=== PATIENT | female | born 1945 | race Caucasian/White ===

== ENCOUNTER → 2017-10-02 00:17 | Outpatient (CLI) | payer MEDICARE, BC, SELFPAY ==
--- NOTE | 2017-10-02 15:40 | DI.REPORT_ITS ---
SYMPTOM/DIAGNOSIS: RT KNEE PAIN M25.561 MRI RIGHT KNEE: Routine noncontrast examination was performed. There is a tear of the posterior horn of the medial meniscus. The lateral meniscus is intact. The anterior cruciate, posterior cruciate, medial and lateral collateral ligaments are intact. There is fluid seen around the medial collateral ligament and a Grade 1 sprain should be considered. There is thinning of the articular cartilage in the medial femoral tibial joint space. The articular cartilage is otherwise well maintained. There is a joint effusion. No significant popliteal cyst is present. The extensor mechanism, medial and lateral retinaculum and popliteus tendon are intact. No findings to suggest an occult fracture or avascular necrosis are appreciated. IMPRESSION: 1. Tear of the posterior horn of the medial meniscus. 2. Grade 1 sprain of the medial collateral ligament.
== END ==
PROVIDERS: PCP Nurse Practitioner; Visit Provider Nurse Practitioner
DX: M25.561 Pain in right knee (principal); S83.241A Other tear of medial meniscus, current injury, right knee, initial encounter; S83.411A Sprain of medial collateral ligament of right knee, initial encounter
CPT/HCPCS: 73721

== ENCOUNTER → 2017-10-06 09:30 | Outpatient (CLI) | payer MEDICARE, BC, SELFPAY | PROVIDERS: PCP Nurse Practitioner; Visit Provider Orthopaedic Surgery | DX: S83.241A Other tear of medial meniscus, current injury, right knee, initial encounter (principal); X50.9XXA Other and unspecified overexertion or strenuous movements or postures, initial encounter | CPT/HCPCS: 99214 ==

== ENCOUNTER 2017-11-24 11:06 | Outpatient (CLI) | payer MEDICARE, BC, SELFPAY ==
[2017-11-24 12:02] LABS: HCT 37.1 % (36.0-46.0); HGB 12.6 g/dL (12.0-15.5); Mean Corpuscular Hemoglobin 30.8 pg (27.0-33.0); Mean Corpuscular Volume 90.7 fL (80-95); Mean Platelet Volume 9.3 fL (8.0-11.0); Platelet Count 176 x1000/uL (130-400); RBC 4.09 m/cumm (4.00-5.20); RBC Distribution Width 13.5 % (11.7-14.6); White Blood Cell Count 4.61 k/cumm (4.4-10.8)
[2017-11-24 12:51] LABS: ALT 22 U/L (12-78); AST 18 U/L (15-37); Albumin 3.8 g/dL (3.4-5.0); Alkaline Phosphatase 56 U/L (46-116); Anion Gap 9.5 mmol/L (3-11); BUN 19 mg/dL (7-18); Bilirubin, Total 2.1 mg/dL (0.2-1.0); CO2 29.5 mmol/L (21.0-32.0); Calcium 8.3 mg/dL (8.5-10.1); Chloride 102 mmol/L (98-107); Cholesterol 150 mg/dL (50-200); Glucose 101 mg/dL (70-100); HDL Cholesterol 53 mg/dL (40-60); LDL CHOLESTEROL 86 mg/dL (<100); Potassium 3.5 mmol/L (3.5-5.1); Sodium 141 mmol/L (136-145); Total Protein 6.9 g/dL (6.4-8.2); Triglyceride 79 mg/dL (30-150)
== END 2017-11-24 11:26 ==
PROVIDERS: PCP Nurse Practitioner; Visit Provider Nurse Practitioner
DX: I82.412 Acute embolism and thrombosis of left femoral vein (principal); I10 Essential (primary) hypertension; E78.2 Mixed hyperlipidemia
CPT/HCPCS: 36415; 80053; 80061; 83721; 85027

== ENCOUNTER 2018-09-10 07:29 | Outpatient (CLI) | payer MEDICARE, BC, SELFPAY ==
[2018-09-10 08:26] LABS: HCT 38.2 % (36.0-46.0); HGB 12.6 g/dL (12.0-15.5); Mean Corpuscular Hemoglobin 29.8 pg (27.0-33.0); Mean Corpuscular Volume 90.3 fL (80-95); Mean Platelet Volume 9.3 fL (8.0-11.0); Platelet Count 207 x1000/uL (130-400); RBC 4.23 m/cumm (4.00-5.20); RBC Distribution Width 13.6 % (11.7-14.6); White Blood Cell Count 4.14 k/cumm (4.4-10.8)
[2018-09-10 09:02] LABS: ALT 27 U/L (12-78); AST 19 U/L (15-37); Albumin 3.7 g/dL (3.4-5.0); Alkaline Phosphatase 64 U/L (46-116); Anion Gap 9.2 mmol/L (3-11); BUN 20 mg/dL (7-18); Bilirubin, Total 1.1 mg/dL (0.2-1.0); CO2 26.8 mmol/L (21.0-32.0); CREATININE 0.98 mg/dL (0.55-1.02); Calcium 8.7 mg/dL (8.5-10.1); Calculated LDL 102 mg/dL; Chloride 105 mmol/L (98-107); Cholesterol 176 mg/dL (50-200); Estimated GFR 55.48 (mL/min/1.73m2); Glucose 116 mg/dL (70-100); HDL Cholesterol 51 mg/dL (40-60); Potassium 4.2 mmol/L (3.5-5.1); Sodium 141 mmol/L (136-145); Triglyceride 117 mg/dL (30-150)
== END 2018-09-10 07:49 ==
PROVIDERS: PCP Nurse Practitioner; Visit Provider Nurse Practitioner
DX: E78.2 Mixed hyperlipidemia (principal); I10 Essential (primary) hypertension
CPT/HCPCS: 36415; 80053; 80061; 83721; 85027

== ENCOUNTER 2018-09-29 01:03 | Outpatient (CLI) | payer MEDICARE, BC, SELFPAY ==
--- NOTE | 2018-09-29 13:00 | DI.MAMMO_ITS ---
SYMPTOMS/DIAGNOSIS: SCREENING, Z12.31 MAMMOGRAMS: Mammograms were interpreted according to the usual protocol including computer analysis with CAD system, tomosynthesis and C view imaging. The breast tissue is of moderate radiodensity. There is no dominant mass. There are no suspicious calcifications and there has been no significant interval change when compared with prior images. SUMMARY: No evidence of malignancy, category 1. Yearly screening mammography is recommended. Breast density category B. SA ASSESSMENT OF FINDINGS: Negative. Category 1. Patient will receive a letter notifying them of these results. BI-RADS category B. There are scattered areas of fibroglandular density.
== END 2018-09-29 01:23 ==
PROVIDERS: PCP Nurse Practitioner; Visit Provider Nurse Practitioner
DX: Z12.31 Encounter for screening mammogram for malignant neoplasm of breast (principal)
CPT/HCPCS: 77063; 77067

== ENCOUNTER 2018-10-07 07:28 | Outpatient (CLI) | payer MEDICARE, BC, SELFPAY ==
--- NOTE | 2018-10-07 08:23 | DI.US_ITS ---
SYMPTOMS/DIAGNOSIS: LT LEG SWELLING, M79.89, ? DVT DUPLEX VENOUS ULTRASOUND LEFT LOWER EXTREMITY: Duplex evaluation of the deep venous system was performed according to the usual protocol. The deep veins are freely compressible throughout to the level of the popliteal veins. There is normal doppler flow visible throughout and there is excellent flow augmentation with manual calf compression. CONCLUSION: No evidence of deep venous thrombosis.
== END 2018-10-07 07:48 ==
PROVIDERS: PCP Nurse Practitioner; Visit Provider Nurse Practitioner Family
DX: M79.89 Other specified soft tissue disorders (principal); R22.42 Localized swelling, mass and lump, left lower limb
CPT/HCPCS: 93971

== ENCOUNTER 2019-05-05 10:54 | Outpatient (CLI) | payer MEDICARE, BC, SELFPAY ==
[2019-05-05 13:23] LABS: ALT 28 U/L (14-59); AST 18 U/L (15-37); Albumin 3.7 g/dL (3.4-5.0); Alkaline Phosphatase 68 U/L (46-116); Anion Gap 6.9 mmol/L (3-11); BUN 16 mg/dL (7-18); Bilirubin, Total 1.2 mg/dL (0.2-1.0); CO2 30.1 mmol/L (21.0-32.0); CREATININE 0.82 mg/dL (0.55-1.02); Calcium 8.8 mg/dL (8.5-10.1); Calculated LDL 104 mg/dL (<100); Chloride 104 mmol/L (98-107); Cholesterol 185 mg/dL (<200); Glucose 102 mg/dL (74-106); HDL Cholesterol 58 mg/dL (40-60); Potassium 4.3 mmol/L (3.5-5.1); Sodium 141 mmol/L (136-145); Total Protein 6.9 g/dL (6.4-8.2); Triglyceride 117 mg/dL (<150)
== END 2019-05-05 11:14 ==
PROVIDERS: PCP Nurse Practitioner; Visit Provider Nurse Practitioner
DX: I10 Essential (primary) hypertension (principal); E78.2 Mixed hyperlipidemia
CPT/HCPCS: 36415; 80053; 80061

== ENCOUNTER 2019-10-03 01:13 | Outpatient (CLI) | payer MEDICARE, BC, SELFPAY ==
--- NOTE | 2019-10-03 06:00 | DI.MAMMO_ITS ---
EXAM: MG MAMMO SCREENING CLINICAL HISTORY: screening,Z12.39 TECHNIQUE: Mammograms were interpreted according to the usual protocol including computer analysis w [employer] CAD system, tomosynthesis and C-view imaging. COMPARISON: FINDINGS: The breasts are of moderate density with fairly symmetrical distribution of fibroglandular tissue. N o dominant mass or clumped microcalcification is identified in either breast. The current examinatio n is compared with prior studies including August 2018 and there has been no gross interval change in a ppearance in comparison with the previous studies. IMPRESSION: No specific evidence of malignancy at this time. Routine screening examinations are suggested at yea rly intervals due to the family history of breast carcinoma. BI-RADS Cat 1 - Negative Breast Density - Category B - Scattered areas of fibroglandular density
== END 2019-10-03 01:33 ==
PROVIDERS: PCP Nurse Practitioner; Visit Provider Nurse Practitioner
DX: Z12.31 Encounter for screening mammogram for malignant neoplasm of breast (principal); R92.2 Inconclusive mammogram; Z80.3 Family history of malignant neoplasm of breast
CPT/HCPCS: 77063; 77067

== ENCOUNTER 2020-06-01 09:17 | Outpatient (CLI) | payer MEDICARE, BC, SELFPAY ==
--- NOTE | 2020-06-01 08:30 | DI.RAD_ITS ---
EXAM: XR HAND RT COMPLETE CLINICAL HISTORY: right hand discomfort TECHNIQUE: COMPARISON: No exams were available for comparison FINDINGS: Three views were obtained. There are moderate degenerative changes of the IP joints, most marked at the DIP joints of the index and middle fingers and the IP joint of the thumb. There are degenerative changes at the greater multangular 1st metacarpal joint with prominent marginal osteophytes and tamym ed loss of the cartilaginous joint space. No other significant bony abnormality seen. IMPRESSION: RADIATION DOSE DELIVERED: Total DLP
== END 2020-06-01 09:18 | disposition home or self-care (01) ==
LOC: DIORS 09:18
PROVIDERS: PCP Nurse Practitioner; Referring Provider Nurse Practitioner; Visit Provider Student in an Organized Health Care Education/Training Program
DX: M19.041 Primary osteoarthritis, right hand (principal); M18.11 Unilateral primary osteoarthritis of first carpometacarpal joint, right hand; M65.331 Trigger finger, right middle finger; M65.341 Trigger finger, right ring finger; M65.351 Trigger finger, right little finger; M25.641 Stiffness of right hand, not elsewhere classified
CPT/HCPCS: 99213; 73130

== ENCOUNTER 2020-06-12 09:55 | Day surgery (SDC) | payer MEDICARE, BC, SELFPAY ==
[2020-06-12 10:34] VITALS: BP 136/72; PULSE 60; RESP 16; TEMP 36.4; O2SAT 96
--- NOTE | 2020-06-12 11:22 | W.PM.DSUDISC ---
Discharge Plan Disposition Patient Disposition: HOME Condition: Good Discharge Details Reason For Visit: RMF, RRF, RLF trigger release Attending Provider: Dk Salas Primary Care Provider: Echo Chamberlain Home Meds and New Rx's Prescriptions: New ibuprofen 600 mg tablet 600 mg PO TID PRN (Reason: pain) Qty: 30 RF: 0 acetaminophen 500 mg capsule 1,000 mg PO Q8H PRN PRNQty: 90 RF: 0 Continued warfarin 5 mg tablet See Rx Instructions mg PO DAILY Qty: 30 RF: 5 warfarin 2.5 mg tablet See Rx Instructions mg PO DAILY Qty: 90 RF: 3 amlodipine 5 mg tablet 5 mg PO DAILY Qty: 90 RF: 3 atorvastatin [Lipitor] 40 mg tablet 40 mg PO DAILY Qty: 90 RF: 3 fluticasone propionate 50 mcg/actuation spray,suspension 2 spray CANDELARIO DAILY Qty: 54.6 RF: 3 hydrochlorothiazide 25 mg tablet 25 mg PO DAILY Qty: 90 RF: 3 oxybutynin chloride 15 mg tablet extended release 24hr 15 mg PO DAILY Qty: 90 RF: 3 betamethasone valerate 0.1 % cream 1 applic Topical BID PRN (Reason: Hand eczema) Qty: 15 RF: 5 calcium citrate-vitamin D3 1 EACH tablet 1 ea PO DAILY RF: 0 omeprazole 20 mg tablet,delayed release (DR/EC) 20 mg PO DAILY Qty: 90 RF: 3 biotin 10,000 mcg Capsule 10,000 mcg PO DAILY RF: 0 B12 Active 1,000 mcg Tablet,Chewable 1,000 mcg PO DAILY RF: 0 Discharge Instructions Stand Alone Forms: Maritza Jackson Finger Release Referrals: Dk Salas MD [ [facility] STAFF PHYSICIAN] - Activity:: Activity as Tolerated Remove Dressings/Wound Care:: 48 hours Shower/Bathe:: 48 hours Diet:: As Tolerated Discharge Orders Discharge Orders: Discharge Order (Routine); Ordered 06/12/20 Ordered By: Hector Sheets DS: Diagnosis Discharge Diagnosis (1) Trigger finger: Status: Acute
[2020-06-12] MEDS: Sodium Bicarbonate 50 MEQ/50 ML VIAL (11:34)
--- NOTE | 2020-06-12 18:21 | ROE_ITS ---
Date of service: 06/12/20 Time of Service: 12:31 Operative Note Operative Note DATE OF PROCEDURE: 06/12/20 PRE-OP DIAGNOSIS: Right Middle, Ring, and Little Finger Trigger Fingers POST-OP DIAGNOSIS: same PROCEDURE: Trigger Finger Release - Right Middle, Ring, and Little Fingers SURGEON: Dk Salas ANESTHESIA TYPE: Local By Surgeon Refer to Anesthesia Record ESTIMATED BLOOD LOSS: 5 PATHOLOGY: none sent TOURNIQUET TIME: 0 COMPLICATIONS: None Patient was transported to: same day Patient's condition: stable Indications: I have seen Stacy in clinic for symptoms of a trigger finger of the little, ring, and middle fingers. The catching, clicking, locking, and pain limited function. The diagnosis of trigger finger was evident. The symptoms had not responded to conservative measures. I discussed trigger finger release with the patient. I reviewed the risks of the procedure to include, but not limited to, bleeding, infection, pain, stiffness, incomplete release, damage to nerves or vessels, continued catching, recurrence. Despite these risks, the patient elected to proceed. Findings: There was a tightened A1 ben which was released at each digit. The flexor tendons were inspected at each digit and there was noted to be some fraying of the tendon of ech finger. Stacy was able to move the finger without any catching, clicking, or locking. Procedure Description: Stacy was greeted in the preoperative holding area where the correct side was identified and marked. The consent was reviewed with the patient and signed. All questions were answered. She was taken back to the operating room. The patient was placed into the supine position on the operating room table with the left arm on an arm board. All bony prominences were well padded. No prophylactic antibiotics were administered since this was a clean, elective hand surgical case. The right arm was then prepped with Chloraprep and draped in a standard fashion with stockinette and extremity drape. A timeout to confirm correct identity, side and site, procedure, allergies, anesthesia, and medical concerns was performed. The surgical site was marked as a incision directly over the A1 ben of the involved digits. This was confirmed with palpation during finger flexion. This area, overlying the metacarpal head, was then anesthetized with 1% Lidocaine with epinephrine buffered with sodium bicarbonate for all 3 digits. The patient tolerated this well and once the anesthetic had setup, the procedure began. Starting with the little finger, incision was made through skin only, approximately 1cm. The deep tissues were dissected bluntly. Once the A1 ben and flexor tendons were identified the soft tissue including neurovascular structures were retracted medially and laterally. There were no crossing structures over the A1 ben. The proximal edge of the ben was identified and the ben was incised with tenotomy scissors. There was a release of the tendons once this was fully released. The tendons were then removed from the wound and inspected. There was notable fraying of the tendons and this was debrided. The tendons were then returned to the wound. Incision was then made overlying the ring finger A1 ben. The deep tissues were dissected bluntly. Soft tissues including neurovascular structures were retracted medially and laterally. There were no crossing structures over the A1 ben. The proximal edge of the ben was identified and the ben was incised with tenotomy scissors. There was a release of the tendons once this was fully released. The tendons were then removed from the wound and inspected. Excess synovium was resected. There was also some fraying of the flexor tendons, which was debrided. The hand was then inspected for any A0 ben or area of possible constriction. Lastly, an incision was then made overlying the middle finger A1 ben. The deep tissues were dissected bluntly. Soft tissues including neurovascular structures were retracted medially and laterally. There were no crossing structures over the A1 ben. The proximal edge of the ben was identified and the ben was incised with tenotomy scissors. There was a release of the tendons once this was fully released. The tendons were then removed from the wound and inspected. Excess synovium was resected. There was also some fraying of the flexor tendons, which was debrided. The tendons were then returned. Stacy was then asked to make a fist and repeat flexion and extension where there was no catching, clicking or triggering experienced. There was no re creation of the pre-operative symptoms. The wounds were then irrigated and the skin was closed with a 4-0 Nylon at each incision. This was then dressed with Xeroform,gauze and a Conform dressing. The patient tolerated the procedure well and was returned to the Same Day Surgery area in a stable condition suffering no known complication.
== END 2020-06-12 12:16 | disposition home or self-care (01) ==
PROVIDERS: PCP Nurse Practitioner; Visit Provider Student in an Organized Health Care Education/Training Program
PROC: (CPT 26055; principal; 2020-06-12 12:00)
DX: M65.351 Trigger finger, right little finger (principal); M65.331 Trigger finger, right middle finger
CPT/HCPCS: 26055 ×2

== ENCOUNTER → 2020-06-22 08:15 | Outpatient (BNVA) | payer MEDICARE, BC, SELFPAY | PROVIDERS: PCP Nurse Practitioner; Referring Provider Nurse Practitioner; Visit Provider Physician Assistant | DX: Z47.89 Encounter for other orthopedic aftercare (principal) ==

== ENCOUNTER → 2020-08-10 09:20 | Outpatient (BNVA) | payer MEDICARE, BC, SELFPAY | PROVIDERS: PCP Nurse Practitioner; Referring Provider Nurse Practitioner; Visit Provider Student in an Organized Health Care Education/Training Program | DX: Z47.89 Encounter for other orthopedic aftercare (principal); M65.30 Trigger finger, unspecified finger ==

== ENCOUNTER → 2020-09-20 09:42 | Outpatient (BNVA) | payer MEDICARE, BC, SELFPAY | PROVIDERS: PCP Nurse Practitioner; Referring Provider Nurse Practitioner | DX: Z47.89 Encounter for other orthopedic aftercare (principal); M79.644 Pain in right finger(s) | CPT/HCPCS: 99213 ==

== ENCOUNTER 2020-10-03 02:16 | Outpatient (CLI) | payer MEDICARE, BC, SELFPAY ==
--- NOTE | 2020-10-03 07:30 | DI.MAMMO_ITS ---
Exam(s) MAMMO SCREENING EXAM: MAMMO SCREENING CLINICAL HISTORY: screening,Z12.39. TECHNIQUE: Bilateral full field digital CC and MLO mammographic images were obtained with 3D tomosyn thesis and utilizing computer aided detection (CAD). COMPARISON: Prior mammograms dating back to 2010, the most recent being October 2019. Family history. Her mother and grandmother both diagnosed breast cancer. FINDINGS: There are no new significant radiograph findings in left breast. The right breast there is a small group microcalcifications located 4.5 cm in from the nipple on the CC view, more evident than previous. Spot magnification 2D view recommended. There is no significant architectural distortion nor skin thickening-retraction. IMPRESSION: No radiographic evidence of malignancy in the left breast. In the right breast there is a small microcalcification group which require spot Mag view (2D). BI-RADS Category 0 - Assessment Incomplete: Need additional imaging evaluation Breast Density - Category B - Scattered areas of fibroglandular density Breast density Category C or D implies that the patient has dense breast tissue. Dense breast tissue can make it harder to find cancer on a mammogram. Dense breast tissue is also associated with an incr eased risk of breast cancer. This information about the result of the mammogram report was provided to the patient to raise their awareness. Use this report when you speak with the patient about their risks for breast cancer, which includes their family history. At that time, you may recommend additional screening tests (Ultrasoun d or MRI) as these tests may add significant information. A negative radiographic report should not delay biopsy if a dominant or clinically suspicious mass is present. Up to ten percent of cancers are not identified on mammography. A negative report may reinforce clinical impression. Adenosis and dense breasts may obscure an underlying neoplasm. False positive reports average 6 to 10%. Patient will receive a letter notifying them of these results.
== END 2020-10-03 02:36 ==
PROVIDERS: PCP Nurse Practitioner; Visit Provider Nurse Practitioner
DX: Z12.31 Encounter for screening mammogram for malignant neoplasm of breast (principal); R92.8 Other abnormal and inconclusive findings on diagnostic imaging of breast
CPT/HCPCS: 77063; 77067

== ENCOUNTER 2020-10-24 02:36 | Outpatient (CLI) | payer MEDICARE, BC, SELFPAY ==
[2020-10-24 12:42] LABS: HCT 37.5 % (36.0-46.0); HGB 12.5 g/dL (11.2-15.7); MCHC 33.3 % (32.0-36.0); MCV 89.9 fL (80-95); MPV 9.7 fL (8.0-11.0); Platelet Count 205 10^3/uL (130-400); RBC 4.17 10^6/uL (3.93-5.22); RDW 12.9 % (11.7-14.6); RDW-SD 42.3 fL; WBC 5.15 10^3/uL (4.4-10.8)
[2020-10-24 12:59] LABS: ALT 30 U/L (14-59); AST 17 U/L (15-37); Albumin 3.7 g/dL (3.4-5.0); Alkaline Phosphatase 63 U/L (46-116); Anion Gap 9.8 mmol/L (3-11); BUN 21 mg/dL (7-18); Bilirubin, Total 0.9 mg/dL (0.2-1.0); CO2 27.2 mmol/L (21.0-32.0); CREATININE 0.8 mg/dL (0.55-1.02); Calcium 8.7 mg/dL (8.5-10.1); Calculated LDL 89 mg/dL (<100); Chloride 104 mmol/L (98-107); Cholesterol 162 mg/dL (<200); Glucose 101 mg/dL (74-106); HDL Cholesterol 44 mg/dL (40-60); Potassium 4.1 mmol/L (3.5-5.1); Sodium 141 mmol/L (136-145); Total Protein 6.9 g/dL (6.4-8.2); Triglyceride 147 mg/dL (<150)
== END 2020-10-24 02:37 | disposition home or self-care (01) ==
LOC: LOS 02:36
PROVIDERS: PCP Nurse Practitioner; Visit Provider Nurse Practitioner
DX: E11.9 Type 2 diabetes mellitus without complications (principal); E78.2 Mixed hyperlipidemia; I10 Essential (primary) hypertension; J45.909 Unspecified asthma, uncomplicated
CPT/HCPCS: 36415; 80053; 80061; 85027; 83036

== ENCOUNTER 2020-10-26 03:15 | Outpatient (CLI) | payer MEDICARE, BC, SELFPAY ==
--- NOTE | 2020-10-26 | DI.US_ITS ---
Exam(s) MG MAMMO SCREEN CALL BACK UNI US BREAST RT LIMITED EXAM: US BREAST RT LIMITED CLINICAL HISTORY: F/U abnl mammo, small mircrocalcification group TECHNIQUE: Ultrasound performed using standard protocol. COMPARISON: US US LOWER EXTREMITY VASCULAR LT from 10/07/2018 FINDINGS: Additional mammographic views of the right breast and right breast ultrasound are interpreted in conj unction. Recent mammogram showed suboptimally visualized microcalcifications of the medial retroareo lar portion of the breast. Magnification view shows microcalcifications to punctate likely benign. Breast ultrasound shows no evidence of an associated mass or cyst. IMPRESSION: No specific evidence of malignancy at this time. Follow-up right breast mammogram recommended in 6 m [facility]. BI-RADS Cat 3 - 6 month - Probably Benign Finding: Recommend follow-up imaging in 6 months Breast Density - Category B - Scattered areas of fibroglandular density DATA REPOSITORY:
== END 2020-10-26 03:35 ==
PROVIDERS: PCP Nurse Practitioner; Visit Provider Nurse Practitioner
DX: R92.8 Other abnormal and inconclusive findings on diagnostic imaging of breast (principal); R92.0 Mammographic microcalcification found on diagnostic imaging of breast
CPT/HCPCS: 76642; 77063; 77067

== ENCOUNTER 2021-04-29 00:27 | Outpatient (CLI) | payer MEDICARE, BC, SELFPAY ==
--- NOTE | 2021-04-29 07:30 | DI.MAMMO_ITS ---
Exam(s) MAMMO DIAGNOSTIC UNI EXAM: MAMMO DIAGNOSTIC UNI CLINICAL HISTORY: F/u Right abnormal MAMMO,R92.8. TECHNIQUE: Craniocaudal and mediolateral oblique Full Field Digital Mammography views of the breast with Computer Aided Diagnosis followed by Tomosynthesis. COMPARISON: September 2020 and exams back to 2012. FINDINGS: Mammography/Tomosynthesis: Masses/Architectural Distortion: None seen. Microcalcifictions: Stable punctate calcifications central breast. No suspicious pleomorphic-type ar e seen. Skin Thickening/Nipple Retraction: None. IMPRESSION: 1. No evidence of malignancy is noted. 2. Unless there is more urgent need, follow-up screening mammography is recommended, as per [employer] guidelines. BI-RADS Category 2 - Benign Findings Breast Density - Category B - Scattered areas of fibroglandular density A negative radiographic report should not delay biopsy if a dominant or clinically suspicious mass is present. Up to ten percent of cancers are not identified on mammography. A negative report may reinforce clinical impression. Adenosis and dense breasts may obscure an underlying neoplasm. False positive reports average 6 to 10%. Patient will receive a letter notifying them of these results.
== END 2021-04-29 00:47 ==
PROVIDERS: PCP Nurse Practitioner; Visit Provider Nurse Practitioner
DX: R92.8 Other abnormal and inconclusive findings on diagnostic imaging of breast (principal); N60.81 Other benign mammary dysplasias of right breast
CPT/HCPCS: 77061; 77065; G0279

== ENCOUNTER 2021-12-12 10:23 | Outpatient (CLI) | payer MEDICARE, BC, SELFPAY ==
[2021-12-12 10:26] LABS: HGB 11.5 g/dL (11.2-15.7); MCH 30.1 pg (27.0-33.0); MCHC 33.8 % (32.0-36.0); MCV 89 fL (80-95); Platelet Count 161 10^3/uL (130-400); RBC 3.82 10^6/uL (3.93-5.22); RDW 13.2 % (11.7-14.6); RDW-SD 42.9 fL; WBC 4.69 10^3/uL (4.4-10.8)
[2021-12-12 11:01] LABS: Prothrombin Time > 83.4 sec (9.3-11.0)
[2021-12-12 11:07] LABS: INR > 8.8 (0.9-1.1)
== END 2021-12-12 10:24 | disposition home or self-care (01) ==
LOC: LBO 10:26
PROVIDERS: PCP Nurse Practitioner; Visit Provider Nurse Practitioner
DX: R31.9 Hematuria, unspecified (principal); Z79.01 Long term (current) use of anticoagulants
CPT/HCPCS: 36415; 85027; 85610

== ENCOUNTER 2021-12-14 09:22 | Outpatient (CLI) | payer MEDICARE, BC, SELFPAY ==
[2021-12-14 09:46] LABS: Prothrombin Time 28.6 sec (9.3-11.0)
== END 2021-12-14 09:23 | disposition home or self-care (01) ==
PROVIDERS: PCP Nurse Practitioner; Visit Provider Student in an Organized Health Care Education/Training Program
DX: Z79.01 Long term (current) use of anticoagulants (principal); I82.412 Acute embolism and thrombosis of left femoral vein; R79.1 Abnormal coagulation profile
CPT/HCPCS: 36415; 85610

== ENCOUNTER 2021-12-14 09:33 | Outpatient (REF) | payer MEDICARE, BC, SELFPAY | END 2021-12-14 09:34 | disposition home or self-care (01) | LOC: LBN 09:33 | PROVIDERS: PCP Nurse Practitioner; Visit Provider Student in an Organized Health Care Education/Training Program | DX: R35.0 Frequency of micturition (principal) | CPT/HCPCS: 87086 ==

== ENCOUNTER 2021-12-24 11:57 | Outpatient (REF) | payer MEDICARE, BC, SELFPAY | END 2021-12-24 11:58 | disposition home or self-care (01) | LOC: LBN 11:57 | PROVIDERS: PCP Nurse Practitioner; Visit Provider Nurse Practitioner | DX: R35.0 Frequency of micturition (principal) | CPT/HCPCS: 87086 ==

== ENCOUNTER 2022-01-17 08:35 | Outpatient (CLI) | payer MEDICARE, BC, SELFPAY ==
--- NOTE | 2022-01-17 08:00 | DI.RAD_ITS ---
Exam(s) XR KNEE LT 3V AP,LAT,KENNY EXAM: XR KNEE LT 3V AP,LAT,KENNY CLINICAL HISTORY: L knee pain. TECHNIQUE: 2D digital imaging was performed. COMPARISON: No exams were available for comparison FINDINGS: 3 views No evidence of fracture but there is a significant joint effusion. Some narrowing of the medial comp artment noted-mild. Lateral compartment unremarkable. Patellofemoral compartment appears unremarkab le. Tibial plateau unremarkable. Bone density normal. IMPRESSION: No acute osseous findings but there is a joint effusion signifying internal derangement. Appropriate follow-up recommended. DATA REPOSITORY: RADIATION DOSE DELIVERED:
== END 2022-01-17 08:36 | disposition home or self-care (01) ==
LOC: DIORS 08:35
PROVIDERS: PCP Nurse Practitioner; Referring Provider Nurse Practitioner; Visit Provider Physician Assistant
DX: M17.12 Unilateral primary osteoarthritis, left knee (principal)
CPT/HCPCS: 73562; 99213

== ENCOUNTER → 2022-01-24 00:09 | Outpatient (CLI) | payer MEDICARE, BC, SELFPAY ==
--- NOTE | 2022-01-24 11:04 | DI.DEXA_ITS ---
Exam(s) XR DEXA BONE DENSITY W/WO NANCI EXAM: XR DEXA BONE DENSITY W/WO NANCI CLINICAL HISTORY: f/u osteoporosis M81.0 SCREENING TECHNIQUE: COMPARISON: No exams were available for comparison FINDINGS: DEXA scan was performed according to the usual protocol. Please see the accompanying data sheets. Left hip scanning shows T-score -0.8 with left femoral neck T-score -2.0. Lumbar spine scanning shows T-score -1.9. Left forearm scanning shows T-score -1.8 IMPRESSION: Measurements are consistent with osteopenia according to the WHO criteria. The lateral vertebral sca nogram shows no evidence of a vertebral compression fracture. RADIATION DOSE DELIVERED: Total DLP
== END ==
PROVIDERS: PCP Nurse Practitioner; Visit Provider Nurse Practitioner
DX: M85.89 Other specified disorders of bone density and structure, multiple sites (principal); Z13.820 Encounter for screening for osteoporosis
CPT/HCPCS: 77080

== ENCOUNTER 2022-01-27 03:20 | Outpatient (CLI) | payer MEDICARE, BC, SELFPAY ==
[2022-01-27 12:36] LABS: ALT 29 U/L (14-59); AST 21 U/L (15-37); Albumin 3.6 g/dL (3.4-5.0); Alkaline Phosphatase 65 U/L (46-116); Anion Gap 10.1 mmol/L (3-11); BUN 19 mg/dL (7-18); Bilirubin, Total 0.9 mg/dL (0.2-1.0); CO2 25.9 mmol/L (21.0-32.0); CREATININE 0.9 mg/dL (0.55-1.02); Calcium 8.9 mg/dL (8.5-10.1); Calculated LDL 65 mg/dL (<100); Chloride 103 mmol/L (98-107); Cholesterol 146 mg/dL (<200); Estimated GFR 65.84 (mL/min/1.73m2); Glucose 111 mg/dL (74-106); HDL Cholesterol 44 mg/dL (40-60); Potassium 4.1 mmol/L (3.5-5.1); Sodium 139 mmol/L (136-145); Triglyceride 185 mg/dL (<150)
[2022-01-27 12:39] LABS: Hemoglobin A1C 5.7 % (<5.7)
== END 2022-01-27 03:21 | disposition home or self-care (01) ==
LOC: LOS 03:20
PROVIDERS: PCP Nurse Practitioner; Visit Provider Nurse Practitioner
DX: E78.2 Mixed hyperlipidemia (principal); I10 Essential (primary) hypertension; R73.03 Prediabetes
CPT/HCPCS: 36415; 80053; 80061; 83036

== ENCOUNTER → 2022-10-03 09:20 | Outpatient (BNVA) | payer MEDICARE, BC, SELFPAY | PROVIDERS: PCP Nurse Practitioner; Referring Provider Nurse Practitioner; Visit Provider Student in an Organized Health Care Education/Training Program | DX: M65.332 Trigger finger, left middle finger (principal); M65.312 Trigger thumb, left thumb | CPT/HCPCS: 99213 ==

== ENCOUNTER → 2022-11-04 01:24 | Outpatient (CLI) | payer MEDICARE, BC, SELFPAY ==
--- NOTE | 2022-11-04 07:45 | DI.MAMMO_ITS ---
Exam(s) MAMMO SCREENING EXAM: MAMMO SCREENING CLINICAL HISTORY: screening,z12.39. TECHNIQUE: Bilateral full field digital CC and MLO mammographic images were obtained with 3D tomosyn thesis and utilizing computer aided detection (CAD). COMPARISON: Prior mammograms were reviewed. Significant family history here both mother and grandmother been diagnosed with breast cancer FINDINGS: There has been no significant change in the appearance and distribution of the fibroglandular tissue. Previously described small benign-appearing microcalcification group in the right breast remains unch anged. There are no new spiculated masses nor malignant appearing microcalcification groups. There is no significant architectural distortion nor skin thickening-retraction. IMPRESSION: No radiographic evidence of malignancy. Stable benign findings BI-RADS Category 2 - Benign Findings Breast Density - Category B - Scattered areas of fibroglandular density Breast density Category C or D implies that the patient has dense breast tissue. Dense breast tissue can make it harder to find cancer on a mammogram. Dense breast tissue is also associated with an incr eased risk of breast cancer. This information about the result of the mammogram report was provided to the patient to raise their awareness. Use this report when you speak with the patient about their risks for breast cancer, which includes their family history. At that time, you may recommend additional screening tests (Ultrasoun d or MRI) as these tests may add significant information. A negative radiographic report should not delay biopsy if a dominant or clinically suspicious mass is present. Up to ten percent of cancers are not identified on mammography. A negative report may reinforce clinical impression. Adenosis and dense breasts may obscure an underlying neoplasm. False positive reports average 6 to 10%. Patient will receive a letter notifying them of these results.
== END ==
PROVIDERS: PCP Nurse Practitioner; Visit Provider Nurse Practitioner
DX: Z12.31 Encounter for screening mammogram for malignant neoplasm of breast (principal)
CPT/HCPCS: 77063; 77067

== ENCOUNTER 2022-11-05 11:40 | Day surgery (SDC) | payer MEDICARE, BC, SELFPAY ==
--- NOTE | 2022-11-05 10:59 | W.PM.DSUDISC ---
Date of service: 11/05/22 Time of Service: 10:59 Discharge Plan Disposition Patient Disposition: Home Condition: Good Discharge Details Reason For Visit: L thumb, LMF trigger release Attending Provider: Dk Salas Primary Care Provider: Echo Chamberlain Home Meds and New Rx's Prescriptions: New acetaminophen 500 mg tablet 1,000 mg PO TID Qty: 90 0RF Continued PreserVision AREDS-2 250-90-40-1 mg capsule 1 tab PO BID melatonin 10 mg capsule 10 mg PO HS PRN amlodipine 5 mg tablet 5 mg PO DAILY Qty: 90 3RF atorvastatin [Lipitor] 40 mg tablet 40 mg PO DAILY Qty: 90 3RF betamethasone valerate 0.1 % cream 1 applic Topical BID PRN (Reason: Hand eczema) Qty: 15 5RF Rx Instructions: small amt to affected area 2x/day up to 2 weeks, 1 week off repeat cycle as needed. hydrochlorothiazide 25 mg tablet 25 mg PO DAILY Qty: 90 3RF omeprazole 20 mg tablet,delayed release (DR/EC) 20 mg PO DAILY Qty: 90 3RF oxybutynin chloride 15 mg tablet extended release 24hr 15 mg PO DAILY Qty: 90 3RF calcium citrate-vitamin D3 1 EACH tablet 1 ea PO DAILY Saline Nasal 0.65 % aerosol,spray 2 spray intranasal QID PRN (Reason: dry nasal passages) Qty: 88 3RF Xarelto 20 mg tablet 20 mg PO DAILY Qty: 90 3RF Rx Instructions: must administer with evening meal mecobalamin (vitamin B12) [B12 Active] 1,000 mcg Tablet,Chewable 1,000 mcg PO DAILY Discharge Instructions Stand Alone Forms: Maritza Jackson Finger Release Referrals: Dk Salas MD [ [facility] STAFF PHYSICIAN] - Activity:: Activity as Tolerated Remove Dressings/Wound Care:: 48 hours Shower/Bathe:: 48 hours Diet:: As Tolerated Discharge Orders Discharge Orders: Discharge Order (Routine); Ordered 11/05/22 Ordered By: Hector Sheets DS: Diagnosis Discharge Diagnosis (1) Trigger thumb, left thumb: Status: Acute (2) Trigger finger, left middle finger: Status: Acute
[2022-11-05 11:52] VITALS: BP 126/57; PULSE 64; RESP 16; TEMP 36.4; O2SAT 98
[2022-11-05] MEDS: Sodium Bicarbonate 50 MEQ/50 ML VIAL (12:56)
[2022-11-05] MEDS: Lidocaine 1% Pres-Free W/EPI 1/200,000 30 ML VIAL (12:56)
--- NOTE | 2022-11-05 13:16 | ROE_ITS ---
Date of service: 11/05/22 Time of Service: 13:16 Operative Note Operative Note DATE OF PROCEDURE: 11/05/22 PRE-OP DIAGNOSIS: Left Middle Finger and Left Thumb Trigger Fingers POST-OP DIAGNOSIS: same PROCEDURE: Trigger Finger Release - Left Middle Finger and Left Thumb SURGEON: Dk Salas Refer to Anesthesia Record PATHOLOGY: none sent COMPLICATIONS: None Patient was transported to: same day Patient's condition: stable Indications: I have seen Stacy in clinic for symptoms of a trigger finger. The catching, clicking, locking, and pain limited function. The diagnosis of trigger finger was evident. The symptoms had not responded to conservative measures. I discussed trigger finger release with the patient. I reviewed the risks of the procedure to include, but not limited to, bleeding, infection, pain, stiffness, incomplete release, damage to nerves or vessels, continued catching, recurrence. Despite these risks, the patient elected to proceed. Findings: There was a tightened A1 ben which was released. The flexor tendons were inspected and the patient was able to move the finger without any catching, clicking, or locking. Procedure Description: Stacy was greeted in the preoperative holding area where the correct side was identified and marked. The consent was reviewed with the patient and signed. All questions were answered. She was taken back to the operating room. The patient was placed into the supine position on the operating room table with the left arm on an arm board. All bony prominences were well padded. No prophylactic antibiotics were administered since this was a clean, elective hand surgical case. The left arm was then prepped with Chloraprep and draped in a standard fashion with stockinette and extremity drape. A timeout to confirm correct identity, side and site, procedure, allergies, anesthesia, and medical concerns was performed. The surgical site was marked as a longitudinal incision directly over the A1 ben of the thumb and middle finger. This was confirmed with palpation during finger flexion. This area, overlying the metacarpal head, was then anesthetized with 1% Lidocaine with Epinephrine and buffered with sodium bicarbonate for both digits. The patient tolerated this well and once the anesthetic had set up, the procedure began. Starting with the thumb, a longitudinal incision was made through skin only, approximately 1cm. The deep tissues were dissected bluntly. Once the A1 ben and flexor tendons were identified the soft tissue including neurovascular structures were retracted medially and laterally. There were no crossing structures over the A1 ben. The proximal edge of the ben was identified and the ben was incised with tenotomy scissors. There was a release of the tendons once this was fully released. The tendon was then removed from the wound and inspected. The tendons were then returned and the patient was asked to move the finger into deep flexion and back to extension. There was no recreation of the pre-operative symptoms. The hand was then once more inspected for any A0 ben or area of possible constriction. The wound was then irrigated and the skin was closed with a 4-0 Nylon. Moving onto the middle finger, a longitudinal incision was made through skin only, approximately 1cm. The deep tissues were dissected bluntly. Once the A1 ben and flexor tendons were identified the soft tissue including neurovascular structures were retracted medially and laterally. There were no crossing structures over the A1 ben. The proximal edge of the ben was identified and the ben was incised with tenotomy scissors. There was a release of the tendons once this was fully released. The tendons were then removed from the wound and inspected. There was some minor fraying. The tendons were then returned and the patient was asked to move the finger into deep flexion and back to extension. There was no recreation of the pre- operative symptoms. The hand was then once more inspected for any A0 ben or area of possible constriction. The wound was then irrigated and the skin was closed with a 4-0 Nylon. This was dressed with gauze and a Conform dressing. The patient tolerated the procedure well and was returned to the Same Day Surgery area in a stable condition suffering no known complication.
[2022-11-05 13:20] VITALS: BP 157/71; PULSE 63; RESP 16; TEMP 36.8; O2SAT 95
== END 2022-11-05 13:40 | disposition home or self-care (01) ==
PROVIDERS: PCP Nurse Practitioner; Visit Provider Student in an Organized Health Care Education/Training Program
PROC: (CPT 26055; principal; 2022-11-05 11:45)
DX: M65.312 Trigger thumb, left thumb (principal); M65.332 Trigger finger, left middle finger
CPT/HCPCS: 26055 ×2

== ENCOUNTER → 2022-11-14 09:28 | Outpatient (BNVA) | payer MEDICARE, BC, SELFPAY | PROVIDERS: PCP Nurse Practitioner; Referring Provider Nurse Practitioner | DX: Z47.89 Encounter for other orthopedic aftercare (principal); M25.642 Stiffness of left hand, not elsewhere classified ==

== ENCOUNTER → 2023-01-19 08:50 | Outpatient (BNVA) | payer MEDICARE, BC, SELFPAY | PROVIDERS: PCP Nurse Practitioner; Referring Provider Nurse Practitioner; Visit Provider Nurse Practitioner Gerontology | DX: N39.41 Urge incontinence (principal) | CPT/HCPCS: 51798; 81003; 99215 ==

== ENCOUNTER → 2023-04-22 12:17 | Outpatient (BNVA) | payer MEDICARE, BC, SELFPAY | PROVIDERS: PCP Nurse Practitioner; Referring Provider Nurse Practitioner; Visit Provider Nurse Practitioner Gerontology | DX: N39.41 Urge incontinence (principal) | CPT/HCPCS: 99213 ==

== ENCOUNTER 2023-08-11 20:05 | Outpatient (CLI) | payer MEDICARE, BC, SELFPAY ==
[2023-08-11 08:51] LABS: Abs Immature Grans 0.01 10^3/uL (0.0-0.06); Absolute Basophil Count 0.04 10^3/uL (0.0-0.2); Absolute Eosinophil Count 0.25 10^3/uL (0.0-0.7); Absolute Lymphocyte Count 1.58 10^3/uL (1.2-3.4); Absolute Monocyte Count 0.36 10^3/uL (0.1-0.8); Basophils % 0.7 %; Eosinophils % 4.4 %; HCT 37.5 % (36.0-46.0); Immature Grans % 0.2 %; Lymphocytes % 27.5 %; MCH 31.3 pg (27.0-33.0); MCHC 34.7 % (32.0-36.0); MCV 90 fL (80-95); MPV 8.6 fL (8.0-11.0); Monocytes % 6.3 %; Neutrophils % 60.9 %; Platelet Count 180 10^3/uL (130-400); RBC 4.15 10^6/uL (3.93-5.22); RDW 12.9 % (11.7-14.6); RDW-SD 42.8 fL; WBC 5.74 10^3/uL (4.4-10.8)
[2023-08-11 09:59] LABS: ALT 31 U/L (14-59); AST 19 U/L (15-37); Albumin 3.6 g/dL (3.4-5.0); Alkaline Phosphatase 74 U/L (46-116); Anion Gap 9.1 mmol/L (3-11); BUN 14 mg/dL (7-18); Bilirubin, Total 1.2 mg/dL (0.2-1.0); CO2 29.9 mmol/L (21.0-32.0); CREATININE 0.8 mg/dL (0.55-1.02); Calcium 8.7 mg/dL (8.5-10.1); Chloride 103 mmol/L (98-107); Glucose 121 mg/dL (74-106); Potassium 3.5 mmol/L (3.5-5.1); Sodium 142 mmol/L (136-145); Total Protein 7.3 g/dL (6.4-8.2)
[2023-08-11 10:04] LABS: Hemoglobin A1C 6.2 % (<5.7)
[2023-08-11 11:47] LABS: Calculated LDL 79 mg/dL (<100); Cholesterol 155 mg/dL (<200); HDL Cholesterol 57 mg/dL (40-60); Triglyceride 96 mg/dL (<150)
== END 2023-08-11 20:06 | disposition home or self-care (01) ==
LOC: LBO 08-19 20:06
PROVIDERS: PCP Nurse Practitioner; Visit Provider Nurse Practitioner
DX: Z79.01 Long term (current) use of anticoagulants (principal); E78.2 Mixed hyperlipidemia; I10 Essential (primary) hypertension; E11.9 Type 2 diabetes mellitus without complications
CPT/HCPCS: 36415; 80053; 80061; 83036; 85025

== ENCOUNTER → 2023-08-17 13:33 | Outpatient (BNVA) | payer MEDICARE, BC, SELFPAY | PROVIDERS: PCP Nurse Practitioner; Referring Provider Nurse Practitioner; Visit Provider Nurse Practitioner Gerontology | DX: N39.41 Urge incontinence (principal) | CPT/HCPCS: 99213 ==

== ENCOUNTER 2023-11-03 18:02 | Outpatient (CLI) | payer MEDICARE, BC, SELFPAY ==
--- NOTE | 2023-11-03 18:00 | RT.EKG_ITS ---
APPROVED REPORT Exam: Resting ECG Reason for Exam: bilateral L.E Edema Patient Location: O HR:64 bpm ECG Measurements Heart Rate 64 AXIS VT 125 P 33 QRSd 96 QRS 7 QT 534 T 13 QTc 551 Conclusion Sinus rhythm...normal P axis, V-rate 50- 99 Prolonged QT interval...QTc >500mS Baseline wander in lead(s) II,III,aVL,aVF
== END 2023-11-03 18:03 | disposition home or self-care (01) ==
LOC: DI.KIM 18:03
PROVIDERS: PCP Nurse Practitioner; Visit Provider Nurse Practitioner
DX: R60.0 Localized edema (principal)
CPT/HCPCS: 93010

== ENCOUNTER 2023-11-10 18:41 | Emergency (ER) | payer MEDICARE, BC, SELFPAY ==
[2023-11-10 18:55] VITALS: BP 196/99; PULSE 80; RESP 15; TEMP 36.3; O2SAT 96
[2023-11-10 18:59] VITALS: BP 196/99; PULSE 80; RESP 15; TEMP 36.3; O2SAT 96
--- NOTE | 2023-11-10 19:15 | RT.EKG_ITS ---
APPROVED REPORT Exam: Resting ECG Reason for Exam: high bp Patient Location: E HR:67 bpm ECG Measurements Heart Rate 67 AXIS ID 154 P 53 QRSd 91 QRS 15 QT 479 T 34 QTc 505 Conclusion Sinus rhythm, rate 67 PACs Prolongued QTc at 505ms No STEMI
[2023-11-10 20:33] LABS: Abs Immature Grans 0.02 10^3/uL (0.0-0.06); Absolute Basophil Count 0.04 10^3/uL (0.0-0.2); Absolute Eosinophil Count 0.17 10^3/uL (0.0-0.7); Absolute Lymphocyte Count 1.95 10^3/uL (1.2-3.4); Absolute Monocyte Count 0.43 10^3/uL (0.1-0.8); Absolute Neutrophil Count 2.48 10^3/uL (1.2-6.7); Basophils % 0.8 %; Eosinophils % 3.3 %; HCT 36.6 % (36.0-46.0); HGB 12.4 g/dL (11.2-15.7); Immature Grans % 0.4 %; Lymphocytes % 38.3 %; MCHC 33.9 % (32.0-36.0); MCV 92 fL (80-95); Monocytes % 8.4 %; Neutrophils % 48.8 %; Platelet Count 151 10^3/uL (130-400); RDW 12.8 % (11.7-14.6); RDW-SD 42.1 fL; WBC 5.09 10^3/uL (4.4-10.8)
[2023-11-10 20:44] LABS: INR 3.5 (0.9-1.1); Prothrombin Time 31.6 sec (9.1-11.1)
[2023-11-10 20:52] LABS: Anion Gap 8.6 mmol/L (3-11); BUN 13 mg/dL (7-18); CO2 28.4 mmol/L (21.0-32.0); CREATININE 0.8 mg/dL (0.55-1.02); Chloride 104 mmol/L (98-107); Glucose 98 mg/dL (74-106); Potassium 3.3 mmol/L (3.5-5.1); Sodium 141 mmol/L (136-145)
[2023-11-10] MEDS: Potassium Chloride 20 MEQ TABCR 40 MEQ PO (21:46)
[2023-11-10 21:48] VITALS: BP 175/89; PULSE 80; RESP 15; TEMP 36.3; O2SAT 96
--- NOTE | 2023-11-10 22:40 | ED.GENADUL_ITS ---
Discharge Plan Disposition Patient Disposition: Home Condition: Stable Discharge Details Clinical Impression: Elevated blood pressure reading, Elevated INR, Hypokalemia Primary Care Provider: Echo Chamberlain ED Provider: Liliam Loo Home Meds and New Rx's Prescriptions: Continued warfarin 5 mg tablet 5 mg PO DAILY Qty: 90 3RF Protocol: Dose Management Condition: Thursday Dose/Route: 2.5 mg Instruction: 1 x 2.5 mg tablet Condition: Thursday Dose/Route: 5 mg Instruction: 1 x 5 mg tablet Condition: Thursday Dose/Route: 2.5 mg Instruction: 1 x 2.5 mg tablet Condition: Thursday Dose/Route: 2.5 mg Instruction: 1 x 2.5 mg tablet Condition: Dose/Route: 5 mg Instruction: 1 x 5 mg tablet Condition: Thursday Dose/Route: 2.5 mg Instruction: 1 x 2.5 mg tablet Condition: Thursday Dose/Route: 2.5 mg Instruction: 1 x 2.5 mg tablet Protocol Text: Adjustment Start Date: Thursday10/20/23 INR Value: 2.5 INR Date: 10/20/23 Recheck Date: 11/17/23 Rx Instructions: Start today please. warfarin 2.5 mg tablet 2.5 mg PO DAILY Protocol: Dose Management Condition: Thursday Dose/Route: 2.5 mg Instruction: 1 x 2.5 mg tablet Condition: Thursday Dose/Route: 5 mg Instruction: 1 x 5 mg tablet Condition: Thursday Dose/Route: 2.5 mg Instruction: 1 x 2.5 mg tablet Condition: Thursday Dose/Route: 2.5 mg Instruction: 1 x 2.5 mg tablet Condition: Dose/Route: 5 mg Instruction: 1 x 5 mg tablet Condition: Thursday Dose/Route: 2.5 mg Instruction: 1 x 2.5 mg tablet Condition: Thursday Dose/Route: 2.5 mg Instruction: 1 x 2.5 mg tablet Protocol Text: Adjustment Start Date: Thursday10/20/23 INR Value: 2.5 INR Date: 10/20/23 Recheck Date: 11/17/23 Rx Instructions: as directed atorvastatin [Lipitor] 40 mg tablet 40 mg PO DAILY Qty: 90 3RF hydrochlorothiazide 25 mg tablet 25 mg PO DAILY Qty: 90 3RF omeprazole 20 mg tablet,delayed release (DR/EC) 20 mg PO DAILY Qty: 90 3RF acetaminophen 500 mg tablet 1,000 mg PO TID PRN PreserVision AREDS-2 250-90-40-1 mg capsule 1 tab PO BID melatonin 10 mg capsule 10 mg PO HS PRN betamethasone valerate 0.1 % cream 1 applic Topical BID PRN (Reason: Hand eczema) Qty: 15 5RF Rx Instructions: small amt to affected area 2x/day up to 2 weeks, 1 week off repeat cycle as needed. Centrum Complete 18-400 mg-mcg tablet 1 tab PO DAILY losartan 100 mg tablet 100 mg PO DAILY Qty: 30 3RF furosemide 20 mg tablet See Rx Instructions PO DAILY PRN (Reason: edema) Qty: 14 0RF Rx Instructions: orally daily PRN; 1/2 to 1 tab daily PRN calcium citrate-vitamin D3 1 EACH tablet 1 ea PO DAILY mecobalamin (vitamin B12) [B12 Active] 1,000 mcg Tablet,Chewable 1,000 mcg PO DAILY Discharge Instructions Instructions: High blood pressure in adults Additional Instructions: follow-up with primary care physician tomorrow to review your blood pressure bp at dc 175/89 skip your coumadin tonight, inr 3.5 return with headache, chest pain, or should any new concerns arise Referrals: Echo Chamberlain NP [Primary Care Provider] - HPI General Date/Time Provider Initiated Documentation: 11/10/23 19:10 . HPI Narrative: This 78-year-old female presents with report of elevated blood pressure today, 200/100 at home. States she just had a switch from amlodipine to losartan approximately a week ago. Denies any associated symptoms, specifically no headache, chest pain, or shortness of breath. States but after she checked her blood pressure she maybe was lightheaded, however she is currently asymptomatic. Related Data Home Medications ?Medication ?Instructions ?Recorded ?Confirmed calcium citrate 315 mg-vitamin D3 1 ea PO DAILY 12/11/16 11/10/23 5 mcg (200 unit) tablet mecobalamin (vitamin B12) 1,000 1,000 mcg PO DAILY 06/12/20 11/10/23 mcg chewable tablet (B12 Active) vit C 250 mg-vit E 90 mg-zinc 40 1 tab PO BID 08/10/20 11/10/23 mg-copper 1 [id number] capsule (PreserVision AREDS-2) melatonin 10 mg capsule 10 mg PO HS PRN 04/09/22 11/10/23 betamethasone valerate 0.1 % 1 applic topical BID PRN Hand 10/07/22 11/10/23 topical cream eczema #15 grams warfarin 5 mg tablet 5 mg PO DAILY Keep INR between 2-3 11/11/22 11/10/23 #90 tabs warfarin 2.5 mg tablet 2.5 mg PO DAILY 12/03/22 11/10/23 multivitamin-ferrous 1 tab PO DAILY 04/07/23 11/10/23 fumarate-folic acid 18 mg-400 mcg tablet (Centrum Complete) acetaminophen 500 mg tablet 1,000 mg PO TID PRN 09/01/23 11/10/23 atorvastatin 40 mg tablet (Lipitor) 40 mg PO DAILY #90 tab-caps 09/08/23 11/10/23 hydrochlorothiazide 25 mg tablet 25 mg PO DAILY #90 tab-caps 09/08/23 11/10/23 omeprazole 20 mg tablet,delayed 20 mg PO DAILY #90 tab-caps 09/08/23 11/10/23 release furosemide 20 mg tablet See Rx Instructions PO DAILY PRN 11/03/23 11/10/23 edema #14 tabs losartan 100 mg tablet 100 mg PO DAILY #30 tabs 11/03/23 11/10/23 Previous Rx's ?Medication ?Instructions ?Recorded betamethasone valerate 0.1 % 1 applic topical BID PRN Hand 10/07/22 topical cream eczema #15 grams warfarin 5 mg tablet 5 mg PO DAILY Keep INR between 2-3 11/11/22 #90 tabs atorvastatin 40 mg tablet (Lipitor) 40 mg PO DAILY #90 tab-caps 09/08/23 hydrochlorothiazide 25 mg tablet 25 mg PO DAILY #90 tab-caps 09/08/23 omeprazole 20 mg tablet,delayed 20 mg PO DAILY #90 tab-caps 09/08/23 release furosemide 20 mg tablet See Rx Instructions PO DAILY PRN 11/03/23 edema #14 tabs losartan 100 mg tablet 100 mg PO DAILY #30 tabs 11/03/23 Allergies Allergy/AdvReac Type Severity Reaction Status Date / Time No Known Allergies Allergy Verified 11/10/23 19:01 General Stated Complaint: Headache ESTEFANY: 3 Exam Narrative Exam Narrative: Alert and oriented, no acute distress, pupils equal round reactive to light and accommodation, cardiac rate rhythm regular, no respiratory distress ambulatory with steady gait Course Vital Signs Vital signs: Vital Signs Temperature 36.3 C L 11/10/23 18:55 Pulse 80 11/10/23 18:55 Respiratory Rate 15 11/10/23 18:55 Blood Pressure 196/99 H 11/10/23 18:55 Pulse Oximetry 96 11/10/23 18:55 Temperature 36.3 C L 11/10/23 21:48 Pulse 80 11/10/23 21:48 Respiratory Rate 15 11/10/23 21:48 Blood Pressure 175/89 H 11/10/23 21:48 Blood Pressure Position Sitting 11/10/23 18:59 Pulse Oximetry 96 11/10/23 21:48 Oxygen Delivery Method Room Air 11/10/23 18:59 Oxygen Flow Rate 0 11/10/23 18:55 Pain Level 0 11/10/23 21:48 Lab/Test Results Lab/Test Results: Laboratory Tests Range/Units 11/10/23 20:20 WBC (4.4-10.8) 10^3/uL 5.09 RBC (3.93-5.22) 10^6/uL 4.00 Hgb (11.2-15.7) g/dL 12.4 Hct (36.0-46.0) % 36.6 MCV (80-95) fL 92 MCH (27.0-33.0) pg 31.0 MCHC (32.0-36.0) % 33.9 RDW (11.7-14.6) % 12.8 Plt Count (130-400) 10^3/uL 151 MPV (8.0-11.0) fL 9.0 Immature Gran % % 0.4 Neutrophils % % 48.8 Lymphocytes % % 38.3 Monocytes % % 8.4 Eosinophils % % 3.3 Basophils % % 0.8 Nucleated RBC % (0.0-0.3) % 0.0 Absolute Neutrophils (1.2-6.7) 10^3/uL 2.48 Absolute Lymphocytes (1.2-3.4) 10^3/uL 1.95 Absolute Monocytes (0.1-0.8) 10^3/uL 0.43 Absolute Eosinophils (0.0-0.7) 10^3/uL 0.17 Absolute Basophils (0.0-0.2) 10^3/uL 0.04 PT (9.1-11.1) sec 31.6 H INR (0.9-1.1) 3.5 H Sodium (136-145) mmol/L 141 Potassium (3.5-5.1) mmol/L 3.3 L Chloride (98-107) mmol/L 104 Carbon Dioxide (21.0-32.0) mmol/L 28.4 Anion Gap (3-11) mmol/L 8.6 BUN (7-18) mg/dL 13 Creatinine (0.55-1.02) mg/dL 0.8 Est GFR (CKD-EPI 2020) (mL/min/1.73m2) 74.90 Glucose (74-106) mg/dL 98 Calcium (8.5-10.1) mg/dL 8.0 L Medical Decision Making 78-year-old female presenting in no acute distress with elevated blood pressure, on repeat assessment blood pressure 175/89. Patient did take her losartan this morning and has had 50 mg of hydrochlorothiazide this evening. She took an additional dose in the evening in the emergency department for a total of 50 mg of hydrochlorothiazide. She denies any chest pain or shortness of breath. She otherwise feels fine and does not actually have an appointment with her primary care tomorrow which is great. Her INR is elevated at 3.5 she is encouraged to skip her 5 mg dose of Coumadin this evening and resume at the discretion of her provider. Discharged home in stable condition with stable vitals, CBC and chemistry otherwise unremarkable. Potassium 3.3, given 40 mill equivalents potassium in the emergency department. Return precautions reviewed and patient expressed understanding Quality:SDOH Health Related Social Needs: No Data to Display PFSH All Active Problems (Updated 11/10/23 @ 21:39 by ESTELITA Chi) Hypokalemia (Acute) Elevated INR (Acute) Elevated blood pressure reading (Acute) Mixed urinary incontinence due to female genital prolapse (Acute) Urge incontinence (Acute) Trigger thumb, left thumb (Acute) S/P Release: 11/05/2022 Trigger finger, left middle finger (Acute) S/P Release: 11/05/2022 COVID (Acute 05/20/22) AMD (age related macular degeneration) (Acute ~01/2022) 02/17/22 [facility] ([place]) Primary osteoarthritis of left knee (Acute) Trigger finger (Acute) RMF, RRF, RLF S/P Release of all three fingers: 06/12/2020 Decreased range of motion of finger of right hand (Acute) Prediabetes (Acute) Bruise (Acute) Myalgia (Acute) Sore throat (Acute) Sinusitis (Acute) PND (post-nasal drip) (Acute) Right tennis elbow (Acute) 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 Changing to Xarelto ~ 12/16/21. 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) Left Pain of lower extremity (Acute 12/09/16) Mixed hyperlipidemia (Acute 12/09/16) Low serum calcium (Acute 05/26/16) 05/26/16 7.9 Insomnia (Acute 12/09/16) Gastroesophageal reflux disease (Acute 12/09/16) Fibrosclerosis of breast (Acute 12/09/16) Essential hypertension (Acute 12/09/16) Eczema (Acute 12/09/16) Diverticulosis of colon (Acute 12/09/08) [place], [place] Diverticulosis found in entire colon Barretts esophagus (Acute 12/08/09) EGD Medical History (Updated 11/10/23 @ 21:39 by ESTELITA Chi) History of tobacco abuse (01/08/17) History of DVT (deep vein thrombosis) (01/14/17) Recurrent 03/2015, 12/2015 femoral vein of LLE 11/11/22 off xarelto x 2w, warfarin restarted No coagulopathy eval started 2' move up to [place] from [place].. Fam Hx DVT (mo). Surgical History (Updated 11/05/22 @ 11:00 by ESTELITA Perez) Sigmoidoscopy (~12/1999) Colonoscopy - MAC (03/30/17) Cholecystectomy Appendectomy Family History Mother Alzheimer's disease Neoplasm Breast Maternal Grandmother Neoplasm Breast Social History (Updated 04/09/22 @ 09:09 by Avani Oconnell LPN) Smoking/Tobacco Use Status: Former Tobacco Use Tobacco: How many years used: 25 Smoking risk assessment performed?: Yes Alcohol Intake: current Alcohol Intake frequency: 0-2 drinks per day Alcohol type: wine Counseling given: No Details: 1 glass of wine/maybe one beer/daily. 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 gender identity: female What is your relationship status?: How often do you talk on the phone with friends or family?: twice per week Panel score (0-1 are the most socially isolated patients): 0 What type of physical activity do you participate in: walking and weight lifting Duration: 45-60 minutes/day Frequency: 1-2 times per week Seatbelt use: always Drive intox or ride w/intox class a truck driver: No Working smoke detector in home: Yes Fire extinguisher in home: No Carbon monox detector in home: Yes Firearms in home: No Do you feel safe at home: Yes Victim of physical abuse: No Victim of emotional abuse: No PAWSS Have you Been Recently Intoxicated or Drunk Within the Last 30 days?: No Have you Ever Experienced Previous Episodes of Alcohol Withdrawal?: No Have you ever Experienced Withdrawal Seizures?: No Have you ever Experienced Delirium Tremens(DT)s?: No Have you ever undergone Alcohol Rehabilitation Treatment (i.e, inpt ot outpatient treatment programs)?: No Have you ever Experienced Blackouts?: No Have you ever Combined Alcohol with other Downers within the last 90 days?: No Have you ever Combined Alcohol with any other Substance of Abuse during the last 90 days?: No Positive Blood Alcohol level on Presentation? [PCS.BAL]: No Evidence of Increased Autonomic Activity (i.e. HR>120, tremor, sweating, agitation, nausea)?: No Result: 0
== END 2023-11-10 21:48 | disposition home or self-care (01) ==
PROVIDERS: Emergency Provider Physician Assistant; PCP Nurse Practitioner
DX: R79.1 Abnormal coagulation profile (principal); E87.6 Hypokalemia; R03.0 Elevated blood-pressure reading, without diagnosis of hypertension; R94.31 Abnormal electrocardiogram [ECG] [EKG]; Z86.718 Personal history of other venous thrombosis and embolism; Z79.01 Long term (current) use of anticoagulants
CPT/HCPCS: 36415; 80048; 93005; 99284; 85025; 85610; 93010; 99283

== ENCOUNTER 2023-12-22 07:41 | Inpatient (IN) | payer MEDICARE, BC, SELFPAY ==
[2023-12-22] VITALS (113 sets, daily range): BP systolic 104–201; BP diastolic 37–116; PULSE 69–120; RESP 15–30; TEMP 36.1–37.8; O2SAT 87–98
--- NOTE | 2023-12-22 07:45 | DI.RAD_ITS ---
Exam(s) XR CHEST 2V PA LATERAL EXAM: XR CHEST 2V PA LATERAL CLINICAL HISTORY: cough. TECHNIQUE: 2D digital imaging was performed. COMPARISON: CT CT ABDOMEN PELVIS W from 12/22/2023 FINDINGS: 2 views: Mild cardiomegaly. Mediastinum is not widened. There are no infiltrates nor pleural effusions. No pulmonary edema. IMPRESSION: No acute pulmonary findings. DATA REPOSITORY: RADIATION DOSE DELIVERED:
--- NOTE | 2023-12-22 07:58 | W.ED.GENAD ---
Discharge Plan Disposition Patient Disposition: Admit to [facility] Condition: Serious Discharge Details Chief Complaint: Abd Prob Clinical Impression: Abdominal wall hematoma, Hypocalcemia, Hypomagnesemia, Rectus sheath hematoma Primary Care Provider: Echo Chamberlain ED Provider: Blu Hodge Tolono Meds and New Rx's Prescriptions: No Action warfarin 5 mg tablet 5 mg PO DAILY Qty: 90 3RF Protocol: Dose Management Condition: Thursday Dose/Route: 2.5 mg Instruction: 1 x 2.5 mg tablet Condition: Thursday Dose/Route: 2.5 mg Instruction: 1 x 2.5 mg tablet Condition: Thursday Dose/Route: 2.5 mg Instruction: 1 x 2.5 mg tablet Condition: Thursday Dose/Route: 2.5 mg Instruction: 1 x 2.5 mg tablet Condition: Dose/Route: 2.5 mg Instruction: 1 x 2.5 mg tablet Condition: Thursday Dose/Route: 2.5 mg Instruction: 1 x 2.5 mg tablet Condition: Thursday Dose/Route: 2.5 mg Instruction: 1 x 2.5 mg tablet Protocol Text: Adjustment Start Date: Thursday12/01/23 INR Value: 2.5 INR Date: 12/01/23 Recheck Date: 12/08/23 Rx Instructions: Start today please. warfarin 2.5 mg tablet 2.5 mg PO DAILY Protocol: Dose Management Condition: Thursday Dose/Route: 2.5 mg Instruction: 1 x 2.5 mg tablet Condition: Thursday Dose/Route: 2.5 mg Instruction: 1 x 2.5 mg tablet Condition: Thursday Dose/Route: 2.5 mg Instruction: 1 x 2.5 mg tablet Condition: Thursday Dose/Route: 2.5 mg Instruction: 1 x 2.5 mg tablet Condition: Dose/Route: 2.5 mg Instruction: 1 x 2.5 mg tablet Condition: Thursday Dose/Route: 2.5 mg Instruction: 1 x 2.5 mg tablet Condition: Thursday Dose/Route: 2.5 mg Instruction: 1 x 2.5 mg tablet Protocol Text: Adjustment Start Date: Thursday12/01/23 INR Value: 2.5 INR Date: 12/01/23 Recheck Date: 12/08/23 Rx Instructions: as directed atorvastatin [Lipitor] 40 mg tablet 40 mg PO DAILY Qty: 90 3RF hydrochlorothiazide 25 mg tablet 25 mg PO DAILY Qty: 90 3RF omeprazole 20 mg tablet,delayed release (DR/EC) 20 mg PO DAILY Qty: 90 3RF acetaminophen 500 mg tablet 1,000 mg PO TID PRN Xarelto 20 mg tablet 20 mg PO DAILY Qty: 84 3RF Rx Instructions: must administer with evening meal benzonatate 200 mg capsule 200 mg PO TID PRN (Reason: cough) Qty: 21 0RF PreserVision AREDS-2 250-90-40-1 mg capsule 1 tab PO BID melatonin 10 mg capsule 10 mg PO HS PRN betamethasone valerate 0.1 % cream 1 applic Topical BID PRN (Reason: Hand eczema) Qty: 15 5RF Rx Instructions: small amt to affected area 2x/day up to 2 weeks, 1 week off repeat cycle as needed. Centrum Complete 18-400 mg-mcg tablet 1 tab PO DAILY losartan 100 mg tablet 100 mg PO DAILY Qty: 30 3RF furosemide 20 mg tablet See Rx Instructions PO DAILY PRN (Reason: edema) Qty: 14 0RF Rx Instructions: orally daily PRN; 1/2 to 1 tab daily PRN calcium citrate-vitamin D3 1 EACH tablet 1 ea PO DAILY mecobalamin (vitamin B12) [B12 Active] 1,000 mcg Tablet,Chewable 1,000 mcg PO DAILY HPI General Mode of arrival: ambulatory. Date/Time Provider Initiated Documentation: 12/22/23 07:43. Limitations to Documentation: no limitations. Information obtained by: patient. History of Present Illness 78 year old F presents to the emergency department with the chief complaint of llq abdominal pain, described as moderate, with intensity rated at 7. Quality is described as sharp, Patient started experiencing this day(s) (1) and it has been constant. No relieving factors improve symptom(s), No exacerbating factors reported . Patient notes cough; denies chest pain and shortness of breath. Related Data Home Medications ?Medication ?Instructions ?Recorded ?Confirmed calcium 315 mg (as 1 ea PO DAILY 12/11/16 12/22/23 citrate)-vitamin D3 5 mcg (200 unit) tablet mecobalamin (vitamin B12) 1,000 1,000 mcg PO DAILY 06/12/20 12/22/23 mcg chewable tablet (B12 Active) vit C 250 mg-vit E 90 mg-zinc 40 1 tab PO BID 08/10/20 12/22/23 mg-copper 1 [id number] capsule (PreserVision AREDS-2) melatonin 10 mg capsule 10 mg PO HS PRN 04/09/22 12/22/23 betamethasone valerate 0.1 % 1 applic topical BID PRN Hand 10/07/22 12/22/23 topical cream eczema #15 grams warfarin 5 mg tablet 5 mg PO DAILY Keep INR between 2-3 11/11/22 12/22/23 #90 tabs warfarin 2.5 mg tablet 2.5 mg PO DAILY 12/03/22 12/22/23 multivitamin-ferrous 1 tab PO DAILY 04/07/23 12/22/23 fumarate-folic acid 18 mg-400 mcg tablet (Centrum Complete) acetaminophen 500 mg tablet 1,000 mg PO TID PRN 09/01/23 12/22/23 atorvastatin 40 mg tablet (Lipitor) 40 mg PO DAILY #90 tab-caps 09/08/23 12/22/23 hydrochlorothiazide 25 mg tablet 25 mg PO DAILY #90 tab-caps 09/08/23 12/22/23 omeprazole 20 mg tablet,delayed 20 mg PO DAILY #90 tab-caps 09/08/23 12/22/23 release furosemide 20 mg tablet See Rx Instructions PO DAILY PRN 11/03/23 12/22/23 edema #14 tabs losartan 100 mg tablet 100 mg PO DAILY #30 tabs 11/03/23 12/22/23 rivaroxaban 20 mg tablet (Xarelto) 20 mg PO DAILY #84 tabs 12/07/23 12/22/23 benzonatate 200 mg capsule 200 mg PO TID PRN cough #21 caps 12/21/23 12/22/23 Previous Rx's ?Medication ?Instructions ?Recorded betamethasone valerate 0.1 % 1 applic topical BID PRN Hand 10/07/22 topical cream eczema #15 grams warfarin 5 mg tablet 5 mg PO DAILY Keep INR between 2-3 11/11/22 #90 tabs atorvastatin 40 mg tablet (Lipitor) 40 mg PO DAILY #90 tab-caps 09/08/23 hydrochlorothiazide 25 mg tablet 25 mg PO DAILY #90 tab-caps 09/08/23 omeprazole 20 mg tablet,delayed 20 mg PO DAILY #90 tab-caps 09/08/23 release furosemide 20 mg tablet See Rx Instructions PO DAILY PRN 11/03/23 edema #14 tabs losartan 100 mg tablet 100 mg PO DAILY #30 tabs 11/03/23 rivaroxaban 20 mg tablet (Xarelto) 20 mg PO DAILY #84 tabs 12/07/23 benzonatate 200 mg capsule 200 mg PO TID PRN cough #21 caps 12/21/23 Allergies Allergy/AdvReac Type Severity Reaction Status Date / Time No Known Allergies Allergy Verified 12/22/23 07:48 General Stated Complaint: Abd Prob ESTEFANY: 3 Review of Systems All systems reviewed & are unremarkable except as noted in HPI and below Constitutional Constitutional: Denies chills, Denies fever(s) and Denies weakness Cardiovascular Cardiovascular: Denies chest pain and Denies dyspnea Respiratory Respiratory: Reports cough and Denies dyspnea Gastrointestinal Gastrointestinal: Reports abdominal pain and Denies vomiting Integumentary/Breasts Skin/Breast: Denies rash Neurologic Neurologic: Denies weakness Psychiatric Psychiatric: Denies depression Exam Const General: no acute distress Orientation: alert [facility] Head: normal to inspection Ears: external ears normal General nose exam: external nose normal Mouth: moist mucous membranes Eyes General: appearance normal, both eyes and all related structures Neck Neck: normal visual inspection Resp Effort & Inspection: normal respiratory effort and able to speak in complete sentences Auscultation: clear to auscultation bilaterally Cardio Jugular venous pressure: no JVD Rate: regular rate GI Palpation: soft and tender Skin General skin exam: no rashes or lesions noted Neuro General: patient alert and patient oriented x3 Extrem General: normal to inspection Psych Mental Status: mental status grossly normal Course Vital Signs Vital signs: Vital Signs Temperature 36.8 C 12/22/23 07:44 Pulse 97 H 12/22/23 07:44 Respiratory Rate 18 12/22/23 07:44 Blood Pressure 175/95 H 12/22/23 07:44 Pulse Oximetry 97 12/22/23 07:44 Temperature 36.8 C 12/22/23 07:48 Pulse 97 H 12/22/23 07:48 Respiratory Rate 18 12/22/23 07:48 Respiratory Effort Normal, Non-Labored 12/22/23 07:56 Blood Pressure 175/95 H 12/22/23 07:48 Blood Pressure Position Sitting 12/22/23 07:48 Pulse Oximetry 97 12/22/23 07:48 Oxygen Delivery Method Room Air 12/22/23 07:48 Oxygen Flow Rate 0 12/22/23 07:48 Medical Decision Making 78-year-old female with a history of prior DVTs on warfarin, prior appendectomy and cholecystectomy, hyperlipidemia who comes in with complaints of left lower quadrant pain since last night. She also has had a week of dry cough without fevers, no difficulty breathing or chest pain. She is well-appearing on exam. She has clear lung sounds, abdomen is soft and nondistended, she does have tenderness in the left lower quadrant, no tenderness elsewhere. Concern for diverticulitis will check CBC, CMP, lipase and CT abdomen pelvis. Given her cough will also obtain Fluvid and chest x-ray. Patient with multiple significant electrolyte including a potassium of 2.1, magnesium 0.3 and calcium was not 6, IV repletion ordered for allergies and oral potassium ordered, will add on phosphorus and CPK. CT pending. She is hemodynamically stable. When her blood pressure is taken she does get what appears to be a Trousseau sign in her hands as a they clench up. Patient CT shows question of ileus and also on abdominal wall hematoma with what appears to be active bleeding. Her hemoglobin is stable on repeat, INR is over 8 so we will reverse with PCC and IV vitamin K. I consulted Dr. Hill who recommends also giving TXA, no emergent surgical process and recommends hospitalist admission to [facility] and also monitor electrolytes. CPK is over 1000 which I suspect is possible from the hematoma that is in her abdominal wall. Differential Diagnosis Differential Diagnosis: covid, pneumonia, diverticulitis, kidney stone Medical Records Medical records reviewed: Yes I reviewed the patient's medical records. Lab Data Lab results reviewed: Yes I reviewed the patient's lab results. ECG Data Attestation: I personally reviewed and interpreted this ECG (s) as follows: Prior ECG tracings: available for review Interpretation: sinus rate of 80 pr 116 qtc 540, no stemi Quality:SDOH Health Related Social Needs: No Data to Display PFSH All Active Problems (Updated 12/22/23 @ 16:41 by Blu Hodge MD) Anemia due to blood loss, acute (Acute) Rectus sheath hematoma (Acute) Hypomagnesemia (Acute) Hypocalcemia (Acute) Abdominal wall hematoma (Acute) On deep vein thrombosis (DVT) prophylaxis (Acute) Mixed urinary incontinence due to female genital prolapse (Acute) Urge incontinence (Acute) Trigger thumb, left thumb (Acute) S/P Release: 11/05/2022 Trigger finger, left middle finger (Acute) S/P Release: 11/05/2022 COVID (Acute 05/20/22) AMD (age related macular degeneration) (Acute ~01/2022) 02/17/22 [facility] ([place]) Primary osteoarthritis of left knee (Acute) Trigger finger (Acute) RMF, RRF, RLF S/P Release of all three fingers: 06/12/2020 Decreased range of motion of finger of right hand (Acute) Prediabetes (Acute) Bruise (Acute) Myalgia (Acute) Sore throat (Acute) Sinusitis (Acute) PND (post-nasal drip) (Acute) Right tennis elbow (Acute) Ankle edema (Acute) manager 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 Changing to Xarelto ~ 12/16/21. 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) Left Pain of lower extremity (Acute 12/09/16) Mixed hyperlipidemia (Acute 12/09/16) Low serum calcium (Acute 05/26/16) 05/26/16 7.9 Insomnia (Acute 12/09/16) Gastroesophageal reflux disease (Acute 12/09/16) Fibrosclerosis of breast (Acute 12/09/16) Essential hypertension (Acute 12/09/16) Eczema (Acute 12/09/16) Diverticulosis of colon (Acute 12/09/08) IBIS Mcallister Diverticulosis found in entire colon Barretts esophagus (Acute 12/08/09) EGD Medical History (Updated 12/22/23 @ 16:41 by Blu Hodge MD) History of tobacco abuse (01/08/17) History of DVT (deep vein thrombosis) (01/14/17) Recurrent 03/2015, 12/2015 femoral vein of LLE 11/11/22 off xarelto x 2w, warfarin restarted No coagulopathy eval started 2' move up to [place] from [place].. Fam Hx DVT (mo). Surgical History (Updated 11/05/22 @ 11:00 by ESTELITA Perez) Sigmoidoscopy (~12/1999) Colonoscopy - MAC (03/30/17) Cholecystectomy Appendectomy Family History Mother Alzheimer's disease Neoplasm Breast Maternal Grandmother Neoplasm Breast Social History (Updated 04/09/22 @ 09:09 by Avani Oconnell LPN) Smoking/Tobacco Use Status: Former Tobacco Use Tobacco: How many years used: 25 Smoking risk assessment performed?: Yes Alcohol Intake: current Alcohol Intake frequency: 0-2 drinks per day Alcohol type: wine Counseling given: No Details: 1 glass of wine/maybe one beer/daily. 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 gender identity: female What is your relationship status?: How often do you talk on the phone with friends or family?: twice per week Panel score (0-1 are the most socially isolated patients): 0 What type of physical activity do you participate in: walking and weight lifting Duration: 45-60 minutes/day Frequency: 1-2 times per week Seatbelt use: always Drive intox or ride w/intox haul driver: No Working smoke detector in home: Yes Fire extinguisher in home: No Carbon monox detector in home: Yes Firearms in home: No Do you feel safe at home: Yes Victim of physical abuse: No Victim of emotional abuse: No
[2023-12-22 08:10] LABS: Abs Immature Grans 0.05 10^3/uL (0.0-0.06); Absolute Basophil Count 0.05 10^3/uL (0.0-0.2); Absolute Eosinophil Count 0.05 10^3/uL (0.0-0.7); Absolute Monocyte Count 0.44 10^3/uL (0.1-0.8); Absolute Neutrophil Count 8.32 10^3/uL (1.2-6.7); Basophils % 0.5 %; Eosinophils % 0.5 %; HCT 32.3 % (36.0-46.0); Immature Grans % 0.5 %; Lymphocytes % 10.1 %; MCH 30.5 pg (27.0-33.0); MCHC 34.1 % (32.0-36.0); MCV 90 fL (80-95); MPV 8.9 fL (8.0-11.0); Monocytes % 4.4 %; Platelet Count 215 10^3/uL (130-400); RBC 3.61 10^6/uL (3.93-5.22); RDW 13.2 % (11.7-14.6); RDW-SD 42.8 fL; WBC 9.91 10^3/uL (4.4-10.8)
[2023-12-22] MEDS: HYDROmorphone 2 MG/ML SYR 0.5 MG IVP ×4 (08:14→16:23)
[2023-12-22 08:25] LABS: PTT Activated 58.9 sec (23.6-32.8)
--- NOTE | 2023-12-22 08:30 | RT.EKG_ITS ---
APPROVED REPORT Exam: Resting ECG Reason for Exam: electrolyte abnormalities Patient Location: E HR:80 bpm ECG Measurements Heart Rate 80 AXIS IN 116 P 40 QRSd 91 QRS 16 QT 484 T 5 QTc 540 Conclusion Sinus rhythm...normal P axis, V-rate 60- 99 Atrial premature complexes in couplets...pair SV complexes w/ short R-R Prolonged QT interval...QTc >500mS
[2023-12-22 08:31] LABS: ALT 33 U/L (14-59); AST 31 U/L (15-37); Alkaline Phosphatase 68 U/L (46-116); Anion Gap 9.3 mmol/L (3-11); BUN 14 mg/dL (7-18); Bilirubin, Total 1.66 mg/dL (0.2-1.0); CO2 32.7 mmol/L (21.0-32.0); CREATININE 0.9 mg/dL (0.55-1.02); Chloride 102 mmol/L (98-107); Estimated GFR 65.03 (mL/min/1.73m2); Glucose 126 mg/dL (74-106); Lipase 20 U/L (16-77); Sodium 144 mmol/L (136-145); Total Protein 6.6 g/dL (6.4-8.2)
[2023-12-22 08:33] LABS: Calcium 5.9 mg/dL (8.5-10.1); Magnesium 0.3 mg/dL (1.8-2.4); Potassium 2.1 mmol/L (3.5-5.1)
[2023-12-22 08:37] LABS: Prothrombin Time 70.6 sec (9.1-11.1)
[2023-12-22] MEDS: MAGNESIUM SULFATE 4 GM/100 ML BAG IV_INF (08:51)
[2023-12-22] MEDS: Potassium Chloride Liquid 20 MEQ PKT 40 MEQ PO (08:52)
[2023-12-22] MEDS: Calcium Gluconate 4.65 MEQ/10 ML VIAL 4.65 MG IVP (08:52)
[2023-12-22 08:56] LABS: Procalcitonin < 0.1 ng/mL
[2023-12-22 09:17] LABS: COVID-19 PCR Negative (Negative); Influenza A PCR Negative (Negative); Influenza B PCR Negative (Negative); RSV PCR Negative (Negative)
[2023-12-22 09:18] LABS: Source Nasopharynx
[2023-12-22] MEDS: Normal Saline - Diluent 50 ML VIAL IJ (09:36)
[2023-12-22] MEDS: Omnipaque 350 MG/ML 500 ML BTL-Imaging package 85 ML IJ (09:43)
--- NOTE | 2023-12-22 09:49 | DI.CT_ITS ---
Exam(s) CT ABDOMEN PELVIS W EXAM: CT ABDOMEN PELVIS W CLINICAL HISTORY: llq abdominal pain. TECHNIQUE: Imaging Protocol: Axial computed tomography images with coronal and sagittal reformatted images were created and reviewed CONTRAST MATERIAL: Intravenous: Omnipaque-350 100cc Oral: None COMPARISON: No exams were available for comparison FINDINGS: VISUALIZED LUNG BASES: No nodules nor pleural effusions evident. ABDOMEN: ANTERIOR ABDOMINAL WALL: There is a large hematoma in left anterior abdominal wall left rectus abdomi nus muscle extending from the upper abdomen down to the level of the symphysis pubis, measuring up to 8 cm wide by 4 cm AP by 20 cm craniocaudal. It exhibits some sense of active bleeding. There is no other area of hemorrhage in the abdominal wall nor in the abdomen and pelvis and retroperitoneum. LIVER: There are no focal hepatic lesions evident. GALLBLADDER/BILIARY: Gallbladder not seen and presumed to be surgically absent. CBD diameter is prom inent most probably commensurate with post cholecystectomy status. There is slight dilatation of int rahepatic ducts also evident PANCREAS: . SPLEEN: Spleen size is normal. Small cyst or hemangioma is noted in the superior aspect of the splee n and in the inferior aspect of the spleen. Splenic and portal veins are patent. ADRENALS: There are no significant adrenal masses. KIDNEYS:There is small cortical cysts in both kidneys and there is an additional large benign cyst in the inferior pole region of the left kidney measuring 6 by 4.5 x 4.5 cm. No further workup required for the cyst. No solid renal masses. No calculi nor hydronephrosis.. ABDOMINAL AORTA: The abdominal aorta is peripherally calcified. There is mild dilatation but maximum diameter 2 point 5 cm. The common iliac arteries are also calcified but not enlarged. LYMPH NODES:There is no retroperitoneal nor paraaortic adenopathy. ABDOMINAL WALL: As above. Large left rectus abdominus muscle hematoma. GI: There is no evidence of bowel obstruction, free air, nor abscess. There is sigmoid diverticulosis. There is some streaking in this area but this is most probably rela catarino to the rectus abdominus hematoma. PELVIS: GI: Appendix is surgically absent. There are undigested pills in the cecum noted. There is slightly prominent diameter small bowel loops which are filled and probably Represent an element of ileus. The colon is not collapsed. LYMPH NODES: There is no intrapelvic nor inguinal adenopathy. REPRODUCTIVE: Uterus appears to be surgically absent. Pessary is noted in the upper vagina URINARY BLADDER: Bladder is not distended. There is streaking anterior left of the bladder but this appears to be related to the large left rectus abdominus muscle hematoma. OSSEOUS: No fractures and no significant osseous lesions. Degenerative anterolisthesis L4 upon L5 noted. IMPRESSION: 1. The main acute finding is a large hematoma of the left rectus abdominus muscle 2. Streaking in left side of the pelvis is most probably related to this large muscular hematoma whic h appears to be actively bleeding. 3. Sigmoid diverticulosis without evidence of acute diverticulitis. 4. Previous appendectomy, cholecystectomy, and hysterectomy. Pessary noted in the vagina. Called by myself to ER physician 12/22/2023 at 10:05 a.m. RADIATION DOSE DELIVERED: Total DLP DATA REPOSITORY: All CT scans at this facility are submitted to the National Radiology Data Registry (NRDR) Dose Index Registry (DIR) with the [employer] (ACR). RADIATION OPTIMIZATION: All CT scans at this facility use at least one of these dose optimization te chniques: automated exposure control; mA and/or kV adjustment per patient size (includes targeted exa ms where dose is matched to clinical indication); or iterative reconstruction.
[2023-12-22 10:29] LABS: INR 8.5 (0.9-1.1)
[2023-12-22 10:31] LABS: HCT 31.7 % (36.0-46.0); HGB 10.7 g/dL (11.2-15.7)
[2023-12-22] MEDS: POTASSIUM CHLORIDE/D5-0.9%NACL 1,000 ML 100 MEQ IV (10:50)
[2023-12-22 10:58] LABS: PHOSPHORUS 3.8 mg/dL (2.6-4.7)
[2023-12-22 11:02] LABS: Creatine Kinase 1391 U/L (26-192)
[2023-12-22] MEDS: TRANEXAMIC ACID/SOD. CHL. 1,000 MG/100 ML BAG 600 MG IVPB (11:06)
[2023-12-22 11:36] LABS: Bilirubin Small (Negative); Blood Large (Negative); Clarity Cloudy (Clear); Glucose Negative (Negative); Ketones 15 mg/dL (Negative); Leukocyte Esterase Negative (Negative); Nitrite Negative (Negative); pH 6.5 (5-8)
[2023-12-22] MEDS: PHYTONADIONE 10 MG in Normal Saline 50 ML 200 MG IVPB (11:36)
[2023-12-22 11:41] LABS: Bacteria Few HPF (Negative); C & S Indicated? No; Casts Negative LPF (Negative); Crystals Negative HPF (Negative); Epithelial Cells Rare HPF (Negative); Mucus Trace (Negative); RBC >50 HPF (0-2); WBC 0-2 HPF (0-5)
[2023-12-22] MEDS: TRANEXAMIC ACID/SOD. CHL. 1,000 MG/100 ML BAG 12.5 MG IV (11:52)
[2023-12-22] MEDS: Normal Saline Flush 10 ML SYR IVP ×3 (11:58→23:45)
--- NOTE | 2023-12-22 13:05 | HPE_ITS ---
Date of service: 12/22/23 Time of Service: 13:05 Assessment and Plan Assessment and plan (1) On deep vein thrombosis (DVT) prophylaxis: Status: Acute Assessment and plan: TEDs Holding oral anticoagulation (2) Abdominal wall hematoma: Status: Acute Assessment and plan: H&H 11& 32 CBC at 18:00 and in AM (3) Hypokalemia: Status: Inactive Assessment and plan: K 2.1 Supplementation in progress BMP at 18:00- K 2.5- supplementation in progress CMP in AM Telemetry (4) Hypocalcemia: Status: Acute Assessment and plan: Ca 5.9 Ca gluconate IV in ED BMP at 18:00- Ca 6.3 w albumin of 3.0 corrected at 7.1 Will order 1 gm of Ca gluconatte CMP in AM (5) Hypomagnesemia: Status: Acute Assessment and plan: Mg 0.3 Supplementation Mg in PM at 1.7, IV Mg ordered Mg in AM Discussed with Dr. Jasso History of Present Illness Narrative: This 78 years old female patient with past medical history of DVT on warfarin, prior appendectomy and cholecystectomy, hyperlipidemia presented to the ED at [facility] today with complaints of left lower abdominal quadrant pain since last night. Patient reported having had a dry cough with fevers in the low 100s over 7 to 10 days 3: Denied shortness of breath or chest pain. Workup in the ED was significant for an INR of 8.5, potassium level at 2.1, magnesium level at 0. 3, and a calcium level at 5.9. CPK was 1300. CT imaging showed a hematoma to the left abdominal rectus sheat, with appearance of active bleeding. H&H was 11 and 32 from previous a month ago at 12.4 & 36.6. INR was reversed with PCC, IV vitamin K. The ED provider initiated oral replacement of potassium, IV replacement of calcium and IV replacement of magnesium. Surgical service was consulted and recommended giving TXA without any recommendation for emergent surgical process but recommendation for hospitalist admission to trend H&H and also monitor electrolytes. Hospitalist service was consulted and patient was admitted to the medical surgical floor for evaluation and management of abdominal rectus sheath hematoma, hypomagnesemia, hypokalemia, hypocalcemia, elevated CPK. Hospitalist was informed that 1 g of TXA was ordered to be given. When seen in the ED, the patient was getting a TXA drip as a second dose. The patient was sitting at the edge of bed eating without any acute distress. The patient denies dizziness, previous falls, chest pain. Reported fevers around 100 in the past 2 consecutive days as well as 7 to 10 days of cold symptoms; reports abdominal pain at 5 out of 10 at this time compared to 10 out of 10 overnight. The patient denied vomiting, diarrhea but reported slight nausea last night which has subsided since then. The patient denied hematuria, hematochezia or melena but reported streak of blood after bowel movement most likely due to hemorrhoids. The patient reported that she would like CPR does the patient is a full code. Review of Systems All systems reviewed & are unremarkable except as noted in HPI and below PFSH All Active Problems Anemia due to blood loss, acute (Acute) Rectus sheath hematoma (Acute) Hypomagnesemia (Acute) Hypocalcemia (Acute) Abdominal wall hematoma (Acute) On deep vein thrombosis (DVT) prophylaxis (Acute) Mixed urinary incontinence due to female genital prolapse (Acute) Urge incontinence (Acute) Trigger thumb, left thumb (Acute) S/P Release: 11/05/2022 Trigger finger, left middle finger (Acute) S/P Release: 11/05/2022 COVID (Acute 05/20/22) AMD (age related macular degeneration) (Acute ~01/2022) 02/17/22 [facility] ([place]) Primary osteoarthritis of left knee (Acute) Trigger finger (Acute) RMF, RRF, RLF S/P Release of all three fingers: 06/12/2020 Decreased range of motion of finger of right hand (Acute) Prediabetes (Acute) Bruise (Acute) Myalgia (Acute) Sore throat (Acute) Sinusitis (Acute) PND (post-nasal drip) (Acute) Right tennis elbow (Acute) 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 Changing to Xarelto ~ 12/16/21. 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) Left Pain of lower extremity (Acute 12/09/16) Mixed hyperlipidemia (Acute 12/09/16) Low serum calcium (Acute 05/26/16) 05/26/16 7.9 Insomnia (Acute 12/09/16) Gastroesophageal reflux disease (Acute 12/09/16) Fibrosclerosis of breast (Acute 12/09/16) Essential hypertension (Acute 12/09/16) Eczema (Acute 12/09/16) Diverticulosis of colon (Acute 12/09/08) [place] Diverticulosis found in entire colon Barretts esophagus (Acute 12/08/09) EGD Medical History History of tobacco abuse (01/08/17) 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 Fam Hx DVT (mo). Surgical History Sigmoidoscopy (~12/1999) Colonoscopy - MAC (03/30/17) Cholecystectomy Appendectomy Family History Mother Alzheimer's disease Neoplasm Breast Maternal Grandmother Neoplasm Breast Social History Smoking/Tobacco Use Status: Former Tobacco Use Tobacco: How many years used: 25 Smoking risk assessment performed?: Yes Alcohol Intake: current Alcohol Intake frequency: 0-2 drinks per day Alcohol type: wine Counseling given: No Details: 1 glass of wine/maybe one beer/daily. 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 gender identity: female What is your relationship status?: How often do you talk on the phone with friends or family?: twice per week Panel score (0-1 are the most socially isolated patients): 0 What type of physical activity do you participate in: walking and weight lifting Duration: 45-60 minutes/day Frequency: 1-2 times per week Seatbelt use: always Drive intox or ride w/intox 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: No Working smoke detector in home: Yes Fire extinguisher in home: No Carbon monox detector in home: Yes Firearms in home: No Do you feel safe at home: Yes Victim of physical abuse: No Victim of emotional abuse: No Meds Allergies and Home Medications Allergies Allergy/AdvReac Type Severity Reaction Status Date / Time No Known Allergies Allergy Verified 12/22/23 07:48 Home Medications ?Medication ?Instructions ?Recorded ?Confirmed ?Type calcium 315 mg (as 1 ea PO DAILY 12/11/16 12/22/23 History citrate)-vitamin D3 5 mcg (200 unit) tablet mecobalamin (vitamin B12) 1,000 1,000 mcg PO DAILY 06/12/20 12/22/23 History mcg chewable tablet (B12 Active) vit C 250 mg-vit E 90 mg-zinc 40 1 tab PO BID 08/10/20 12/22/23 History mg-copper 1 ik-cyfxpe-yocshf capsule (PreserVision AREDS-2) melatonin 10 mg capsule 10 mg PO HS PRN 04/09/22 12/22/23 History betamethasone valerate 0.1 % 1 applic topical BID PRN Hand 10/07/22 12/22/23 Rx topical cream eczema #15 grams warfarin 5 mg tablet 5 mg PO DAILY Keep INR between 2-3 11/11/22 12/22/23 Rx #90 tabs warfarin 2.5 mg tablet 2.5 mg PO DAILY 12/03/22 12/22/23 History multivitamin-ferrous 1 tab PO DAILY 04/07/23 12/22/23 History fumarate-folic acid 18 mg-400 mcg tablet (Centrum Complete) acetaminophen 500 mg tablet 1,000 mg PO TID PRN 09/01/23 12/22/23 History atorvastatin 40 mg tablet (Lipitor) 40 mg PO DAILY #90 tab-caps 09/08/23 12/22/23 Rx hydrochlorothiazide 25 mg tablet 25 mg PO DAILY #90 tab-caps 09/08/23 12/22/23 Rx omeprazole 20 mg tablet,delayed 20 mg PO DAILY #90 tab-caps 09/08/23 12/22/23 Rx release furosemide 20 mg tablet See Rx Instructions PO DAILY PRN 11/03/23 12/22/23 Rx edema #14 tabs losartan 100 mg tablet 100 mg PO DAILY #30 tabs 11/03/23 12/22/23 Rx rivaroxaban 20 mg tablet (Xarelto) 20 mg PO DAILY #84 tabs 12/07/23 12/22/23 Rx benzonatate 200 mg capsule 200 mg PO TID PRN cough #21 caps 12/21/23 12/22/23 Rx Exam Narrative Exam Narrative: Constitutional The patient is sitting on stretcher, without acute distress HENMT: Facial structures with normal appearance Eyes: Well aligned Neuro:alert and oriented X 4 .No neurological focal deficit Chest:Chest is symmetrical and normal appearance Resp:Scattered ronchi clearing with cough, remains tight after coughing spells Cardio: regular rhythm, S1, S2,bilateral radial and dorsalis pedis pulses are positive GI: Abdomen is not distended, soft and non tender, bowel sounds are present : Negative Costovertebral angle tenderness Back/spine/Pelvis: No back tenderness, normal alignment Integumentary: Bruise to abdomen Extremities: strength 5/5 to bilateral lower and upper extremities Psych: RASS 0, congruent mood and normal affect. Results Labs 12/22/23 18:24 12/22/23 08:03 Labs: Laboratory Results - last 24 hr 12/22/23 12/22/23 12/22/23 08:03 08:05 08:34 WBC 9.91 RBC 3.61 L Hgb 11.0 L Hct 32.3 L MCV 90 MCH 30.5 MCHC 34.1 RDW 13.2 Plt Count 215 MPV 8.9 Immature Gran % 0.5 Neutrophils % 84.0 Lymphocytes % 10.1 Monocytes % 4.4 Eosinophils % 0.5 Basophils % 0.5 Nucleated RBC % 0.0 Absolute Neutrophils 8.32 H Absolute Lymphocytes 1.00 L Absolute Monocytes 0.44 Absolute Eosinophils 0.05 Absolute Basophils 0.05 PT 70.6 H INR 8.5 H* APTT 58.9 H VBG Lactate 1.0 Sodium 144 Potassium 2.1 L* Chloride 102 Carbon Dioxide 32.7 H Anion Gap 9.3 BUN 14 Creatinine 0.9 Est GFR (CKD-EPI 2020) 65.03 Glucose 126 H Calcium 5.9 L* Phosphorus 3.8 Magnesium 0.3 L* Total Bilirubin 1.66 H AST 31 ALT 33 Alkaline Phosphatase 68 Creatine Kinase 1391 H Total Protein 6.6 Albumin 3.0 L Lipase 20 Procalcitonin < 0.1 Urine Color Urine Clarity Urine pH Ur Specific [place] Urine Protein Urine Ketones Urine Blood Urine Nitrite Urine Bilirubin Urine Urobilinogen Ur Leukocyte Esterase Urine RBC Urine WBC Ur Epithelial Cells Urine Crystals Urine Bacteria Urine Casts Urine Mucus Ur Culture Indicated? Urine Glucose COVID-19 Source Nasopharynx SARS-CoV-2 (PCR) Negative Influenza Type A (PCR) Negative Influenza Type B (PCR) Negative RSV (PCR) Negative 12/22/23 12/22/23 10:25 11:30 WBC RBC Hgb 10.7 L Hct 31.7 L MCV MCH MCHC RDW Plt Count MPV Immature Gran % Neutrophils % Lymphocytes % Monocytes % Eosinophils % Basophils % Nucleated RBC % Absolute Neutrophils Absolute Lymphocytes Absolute Monocytes Absolute Eosinophils Absolute Basophils PT INR APTT VBG Lactate Sodium Potassium Chloride Carbon Dioxide Anion Gap BUN Creatinine Est GFR (CKD-EPI 2020) Glucose Calcium Phosphorus Magnesium Total Bilirubin AST ALT Alkaline Phosphatase Creatine Kinase Total Protein Albumin Lipase Procalcitonin Urine Color Red Urine Clarity Cloudy Urine pH 6.5 Ur Specific [place] 1.010 Urine Protein 100 H Urine Ketones 15 H Urine Blood Large H Urine Nitrite Negative Urine Bilirubin Small H Urine Urobilinogen 1.0 H Ur Leukocyte Esterase Negative Urine RBC >50 H Urine WBC 0-2 Ur Epithelial Cells Rare Urine Crystals Negative Urine Bacteria Few Urine Casts Negative Urine Mucus Trace Ur Culture Indicated? No Urine Glucose Negative COVID-19 Source SARS-CoV-2 (PCR) Influenza Type A (PCR) Influenza Type B (PCR) RSV (PCR) Last Vital Signs Temp 36.8 C 12/22/23 07:48 Pulse 78 12/22/23 12:31 Resp 24 12/22/23 12:50 BP 158/48 H 12/22/23 12:31 Pulse Ox 96 12/22/23 12:50 Time Spent Time spent with Patient: >75 minutes Time was spent: preparing to see the patient(eg.review tests), obtaining and/or reviewing separately otained hiistory, ordering medications,tests, procedures, referring, communicating with other health residential child care counselor, indepentently interpreting results, counseling the patient and care coordination
[2023-12-22 14:31] LABS: HCT 29.2 % (36.0-46.0)
--- NOTE | 2023-12-22 15:22 | SCONE_ITS ---
Date of service: 12/22/23 Time of Service: 15:22 Assessment and Plan Assessment and plan (1) Rectus sheath hematoma: Status: Acute Assessment and plan: - INR was reversed with Kcentra and vitamin K in the ER and she did receive TXA. -She has not required blood and has been hemodynamically stable. Current hemoglobin is 10. We will continue to trend hemoglobins. -She will be admitted to medicine -She did have significant electrolyte derangements particularly of potassium and calcium and magnesium. These have been addressed and corrected we will continue to trend electrolytes -Will continue to follow her hemoglobin and state of the hematoma. At this time, no surgery is indicated. 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 She could not afford a DOAC This is the first bleed she has ever had. (10) History of tobacco abuse: (11) Anemia due to blood loss, acute: Status: Acute Assessment and plan: Ferritin is 92 History of Present Illness Narrative: Patient is a 78-year-old female who. She presented to the emergency room today complaining of abdominal pain. A CT was done which shows a large rectus sheath hematoma with active contrast blush. Her INR was 8. She is a longstanding history of Coumadin use due to recurrent DVT and PE. She cannot afford a DOAC and that is why she is still on Coumadin. She has never had a spontaneous bleed before. She denies any trauma/falls. No recent changes in diet or medications. she does have a cold and does have a cough, and I think this is what started the hematoma.. She has no nausea. She is hungry. She does have abdominal pain that appears to be musculoskeletal in nature. She also has a large bruise on her down the anterior abdominal wall. I did advise her that this is going to become much worse before it becomes better. Her vital signs are stable and she is hungry and would like to eat. Review of Systems All systems reviewed & are unremarkable except as noted in HPI and below PFSH All Active Problems Anemia due to blood loss, acute (Acute) Rectus sheath hematoma (Acute) Hypomagnesemia (Acute) Hypocalcemia (Acute) Abdominal wall hematoma (Acute) On deep vein thrombosis (DVT) prophylaxis (Acute) Mixed urinary incontinence due to female genital prolapse (Acute) Urge incontinence (Acute) Trigger thumb, left thumb (Acute) S/P Release: 11/05/2022 Trigger finger, left middle finger (Acute) S/P Release: 11/05/2022 COVID (Acute 05/20/22) AMD (age related macular degeneration) (Acute ~01/2022) 02/17/22 [facility] ([place]) Primary osteoarthritis of left knee (Acute) Trigger finger (Acute) RMF, RRF, RLF S/P Release of all three fingers: 06/12/2020 Decreased range of motion of finger of right hand (Acute) Prediabetes (Acute) Bruise (Acute) Myalgia (Acute) Sore throat (Acute) Sinusitis (Acute) PND (post-nasal drip) (Acute) Right tennis elbow (Acute) Ankle edema (Acute) retirement current use of anticoagulants with INR goal of 2.0-3.0 (Chronic) Hx > 8, 12/12.. Changing to Xarelto ~ 12/16/21. 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) Left Pain of lower extremity (Acute 12/09/16) Mixed hyperlipidemia (Acute 12/09/16) Low serum calcium (Acute 05/26/16) 05/26/16 7.9 Insomnia (Acute 12/09/16) Gastroesophageal reflux disease (Acute 12/09/16) Fibrosclerosis of breast (Acute 12/09/16) Essential hypertension (Acute 12/09/16) Eczema (Acute 12/09/16) Diverticulosis of colon (Acute 12/09/08) IBIS [place] Diverticulosis found in entire colon Barretts esophagus (Acute 12/08/09) EGD Medical History History of tobacco abuse (01/08/17) 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 Fam Hx DVT (mo). Surgical History Sigmoidoscopy (~12/1999) Colonoscopy - MAC (03/30/17) Cholecystectomy Appendectomy Family History Mother Alzheimer's disease Neoplasm Breast Maternal Grandmother Neoplasm Breast Social History Smoking/Tobacco Use Status: Former Tobacco Use Tobacco: How many years used: 25 Smoking risk assessment performed?: Yes Alcohol Intake: current Alcohol Intake frequency: 0-2 drinks per day Alcohol type: wine Counseling given: No Details: 1 glass of wine/maybe one beer/daily. 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 gender identity: female What is your relationship status?: How often do you talk on the phone with friends or family?: twice per week Panel score (0-1 are the most socially isolated patients): 0 What type of physical activity do you participate in: walking and weight lifting Duration: 45-60 minutes/day Frequency: 1-2 times per week Seatbelt use: always Drive intox or ride w/intox haul 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 in no acute distress HYDRATION: Well hydrated HEAD, EYES, EARS, NECK, THROAT: Head is normocephalic, pupils equal, round, reactive to light and accommodation, ocular movement intact, sclera clear and no jaundice. ?Dentition - poor LUNGS: normal respiration/normal chest excursion. ?Clear to auscultation bilaterally. ? ?HEART: Regular rate and rhythm. no murmurs ext- oa in small joints ABDOMEN: soft & tender to palpation.?Bruising on the left upper abdomen. post sx changes noted. Normal bowel sounds.? No hernias.? Results Last Vital Signs Temp 36.8 C 12/22/23 07:48 Pulse 80 12/22/23 15:01 Resp 23 12/22/23 15:20 BP 131/44 L 12/22/23 15:01 Pulse Ox 92 12/22/23 15:20 Labs 12/22/23 18:24 12/22/23 18:24 Labs: Laboratory Results - last 24 hr 12/22/23 12/22/23 12/22/23 08:03 08:05 08:34 WBC 9.91 RBC 3.61 L Hgb 11.0 L Hct 32.3 L MCV 90 MCH 30.5 MCHC 34.1 RDW 13.2 Plt Count 215 MPV 8.9 Immature Gran % 0.5 Neutrophils % 84.0 Lymphocytes % 10.1 Monocytes % 4.4 Eosinophils % 0.5 Basophils % 0.5 Nucleated RBC % 0.0 Absolute Neutrophils 8.32 H Absolute Lymphocytes 1.00 L Absolute Monocytes 0.44 Absolute Eosinophils 0.05 Absolute Basophils 0.05 PT 70.6 H INR 8.5 H* APTT 58.9 H VBG Lactate 1.0 Sodium 144 Potassium 2.1 L* Chloride 102 Carbon Dioxide 32.7 H Anion Gap 9.3 BUN 14 Creatinine 0.9 Est GFR (CKD-EPI 2020) 65.03 Glucose 126 H Calcium 5.9 L* Phosphorus 3.8 Magnesium 0.3 L* Total Bilirubin 1.66 H AST 31 ALT 33 Alkaline Phosphatase 68 Creatine Kinase 1391 H Total Protein 6.6 Albumin 3.0 L Lipase 20 Procalcitonin < 0.1 Urine Color Urine Clarity Urine pH Ur Specific [place] Urine Protein Urine Ketones Urine Blood Urine Nitrite Urine Bilirubin Urine Urobilinogen Ur Leukocyte Esterase Urine RBC Urine WBC Ur Epithelial Cells Urine Crystals Urine Bacteria Urine Casts Urine Mucus Ur Culture Indicated? Urine Glucose COVID-19 Source Nasopharynx SARS-CoV-2 (PCR) Negative Influenza Type A (PCR) Negative Influenza Type B (PCR) Negative RSV (PCR) Negative 12/22/23 12/22/23 12/22/23 10:25 11:30 14:25 WBC RBC Hgb 10.7 L 10.0 L Hct 31.7 L 29.2 L MCV MCH MCHC RDW Plt Count MPV Immature Gran % Neutrophils % Lymphocytes % Monocytes % Eosinophils % Basophils % Nucleated RBC % Absolute Neutrophils Absolute Lymphocytes Absolute Monocytes Absolute Eosinophils Absolute Basophils PT INR APTT VBG Lactate Sodium Potassium Chloride Carbon Dioxide Anion Gap BUN Creatinine Est GFR (CKD-EPI 2020) Glucose Calcium Phosphorus Magnesium Total Bilirubin AST ALT Alkaline Phosphatase Creatine Kinase Total Protein Albumin Lipase Procalcitonin Urine Color Red Urine Clarity Cloudy Urine pH 6.5 Ur Specific [place] 1.010 Urine Protein 100 H Urine Ketones 15 H Urine Blood Large H Urine Nitrite Negative Urine Bilirubin Small H Urine Urobilinogen 1.0 H Ur Leukocyte Esterase Negative Urine RBC >50 H Urine WBC 0-2 Ur Epithelial Cells Rare Urine Crystals Negative Urine Bacteria Few Urine Casts Negative Urine Mucus Trace Ur Culture Indicated? No Urine Glucose Negative COVID-19 Source SARS-CoV-2 (PCR) Influenza Type A (PCR) Influenza Type B (PCR) RSV (PCR)
[2023-12-22 18:31] LABS: HCT 30.9 % (36.0-46.0); HGB 10.4 g/dL (11.2-15.7)
[2023-12-22 18:42] LABS: INR 1.1 (0.9-1.1); Prothrombin Time 10.6 sec (9.1-11.1)
[2023-12-22 18:48] LABS: Parathyroid Hormone,Intact 37 pg/mL (19-88)
[2023-12-22 18:59] LABS: Anion Gap 9.8 mmol/L (3-11); BUN 13 mg/dL (7-18); CO2 31.2 mmol/L (21.0-32.0); CREATININE 0.9 mg/dL (0.55-1.02); Chloride 105 mmol/L (98-107); Estimated GFR 65.03 (mL/min/1.73m2); Ferritin 92 ng/mL (8-252); Glucose 189 mg/dL (74-106); Magnesium 1.7 mg/dL (1.8-2.4); Sodium 146 mmol/L (136-145)
[2023-12-22] MEDS: POTASSIUM CHLORIDE 20 MEQ/100 ML BAG 50 MEQ IV_INF ×2 (18:59→22:11)
[2023-12-22 19:01] LABS: Calcium 6.3 mg/dL (8.5-10.1); Potassium 2.5 mmol/L (3.5-5.1)
[2023-12-22] MEDS: MAGNESIUM SULFATE 2 GM/50 ML BAG IV_INF (19:19)
[2023-12-22] MEDS: CALCIUM GLUCONATE in NaCl 1 GM/50 ML BAG IVPB (19:30)
[2023-12-22 20:51] LABS: Abs Immature Grans 0.04 10^3/uL (0.0-0.06); Absolute Basophil Count 0.04 10^3/uL (0.0-0.2); Absolute Lymphocyte Count 1.08 10^3/uL (1.2-3.4); Absolute Monocyte Count 0.67 10^3/uL (0.1-0.8); Basophils % 0.4 %; HGB 9.2 g/dL (11.2-15.7); Immature Grans % 0.4 %; Lymphocytes % 10.8 %; MCH 31.1 pg (27.0-33.0); MCHC 34.1 % (32.0-36.0); MCV 91 fL (80-95); MPV 9.2 fL (8.0-11.0); Monocytes % 6.7 %; Neutrophils % 80.7 %; Platelet Count 200 10^3/uL (130-400); RBC 2.96 10^6/uL (3.93-5.22); RDW 13.5 % (11.7-14.6); RDW-SD 44.7 fL; WBC 10.03 10^3/uL (4.4-10.8)
[2023-12-22 20:52] LABS: Lab Add On Test DONE
[2023-12-22 21:00] LABS: Magnesium 2.3 mg/dL (1.8-2.4)
[2023-12-22 22:52] LABS: Anion Gap 7.9 mmol/L (3-11); BUN 13 mg/dL (7-18); CO2 29.1 mmol/L (21.0-32.0); CREATININE 0.8 mg/dL (0.55-1.02); Chloride 104 mmol/L (98-107); Glucose 116 mg/dL (74-106); Sodium 141 mmol/L (136-145)
[2023-12-22 23:01] LABS: Potassium 2.7 mmol/L (3.5-5.1)
[2023-12-22 23:02] LABS: Calcium 6.3 mg/dL (8.5-10.1)
[2023-12-22] MEDS: Acetaminophen 500 MG TAB 1000 MG PO (23:42)
[2023-12-22] MEDS: HYDROmorphone 1 MG/ML SYR 0.5 MG IVP (23:43)
[2023-12-22] MEDS: Atorvastatin 40 MG TAB PO (23:43)
--- NOTE | 2023-12-22 23:47 | W.PC.ACHO ---
Registration Status: Primary Language: Preferred Language: ED Information & Data Chief Complaint Abd Prob 12/22/23 08:01 Triage Note Patient complaining of LLQ 12/22/23 07:44 pain since last night. Patient has had a cough for 1 week. Seen at PCP for cough. COVID/ FLU neg. Increased pain with movement Medical / Surgical History (Last Reviewed 12/22/23 @ 19:54 by Nelia Hill DO) History of tobacco abuse (01/08/17) History of DVT (deep vein thrombosis) (01/14/17) (Last Reviewed 12/22/23 @ 19:54 by Nelia Hill DO) Sigmoidoscopy (~12/1999) Colonoscopy - MAC (03/30/17) Cholecystectomy Appendectomy Most Recent Vital Signs Temperature 37.8 C H 12/22/23 21:10 Temperature Source Tympanic 12/22/23 21:10 Pulse 87 12/22/23 21:10 Pulse 80 12/22/23 21:00 Respiratory Rate 15 12/22/23 21:10 Respiratory Effort Normal 12/22/23 21:10 Respiratory Depth Normal 12/22/23 21:10 Respiratory Pattern Normal 12/22/23 21:10 Blood Pressure 137/79 12/22/23 21:10 Blood Pressure Mean 98 12/22/23 21:10 Blood Pressure Position Supine 12/22/23 21:10 Pulse Oximetry 93 12/22/23 21:10 Oxygen Delivery Method Room Air 12/22/23 21:10 Oxygen Flow Rate 0 12/22/23 21:10 Pain Level 3 12/22/23 21:22 Allergies No Known Allergies Allergy (Verified 12/22/23 07:48) Precautions Isolation Standard precaution 12/22/23 07:56 Active Medications Generic Name Dose Route Start Last Admin Trade Name Freq PRN Reason Stop Dose Admin Acetaminophen 1,000 mg 12/22/23 21:43 12/22/23 23:42 Acetaminophen 500 Mg Tab PO 1,000 mg TID PRN PRN Administration Atorvastatin Calcium 40 mg 12/22/23 23:00 12/22/23 23:43 Atorvastatin 40 Mg Tab PO 40 mg QPM RAYO Administration Hydromorphone HCl 0.5 mg 12/22/23 21:27 12/22/23 23:43 Hydromorphone 1 Mg/Ml Syr IVP 0.5 mg Q2H PRN PRN Administration Potassium Chloride/Dextrose/Sod Cl 1,000 mls @ 100 mls/hr 12/22/23 08:45 12/22/23 19:06 Kcl 40meq/D5-0.9% Nacl IV 0 mls/hr INFUSION RAYO Infusion Potassium Chloride 20 meq in 100 mls @ 50 mls/hr 12/22/23 22:00 12/22/23 22:11 IV_INF 12/22/23 23:59 50 mls/hr Q2H RAYO Administration Iohexol 85 ml 12/22/23 09:45 12/22/23 09:43 Omnipaque 350 Mg/Ml 500 Ml Btl-Imaging Package IJ 01/21/24 23:59 85 ml DIRECTED RAYO Administration Sodium Chloride 0 ml 12/22/23 21:43 12/22/23 23:45 Normal Saline Flush 10 Ml Syr IVP 20 ml PRN PRN Administration IV IV Catheter Type [Left Saline Lock Antecubital] IV Catheter Gauge [Right 18 Antecubital] IV Catheter Gauge [Left 18 Antecubital] Diagnostics 12/22/23 12/22/23 12/22/23 Range/Units Unknown 22:10 20:44 WBC 10.03 (4.4-10.8) 10^3/uL RBC 2.96 L (3.93-5.22) 10^6/uL Hgb 9.2 L (11.2-15.7) g/dL Hct 27.0 L (36.0-46.0) % MCV 91 (80-95) fL MCH 31.1 (27.0-33.0) pg MCHC 34.1 (32.0-36.0) % RDW 13.5 (11.7-14.6) % Plt Count 200 (130-400) 10^3/uL MPV 9.2 (8.0-11.0) fL Immature Gran % 0.4 % Neutrophils % 80.7 % Lymphocytes % 10.8 % Monocytes % 6.7 % Eosinophils % 1.0 % Basophils % 0.4 % Nucleated RBC % 0.0 (0.0-0.3) % Absolute Neutrophils 8.10 H (1.2-6.7) 10^3/uL Absolute Lymphocytes 1.08 L (1.2-3.4) 10^3/uL Absolute Monocytes 0.67 (0.1-0.8) 10^3/uL Absolute Eosinophils 0.10 (0.0-0.7) 10^3/uL Absolute Basophils 0.04 (0.0-0.2) 10^3/uL PT (9.1-11.1) sec INR (0.9-1.1) APTT (23.6-32.8) sec VBG Lactate (0.6-1.4) mmol/L Sodium 141 (136-145) mmol/L Potassium 2.7 L* (3.5-5.1) mmol/L Chloride 104 (98-107) mmol/L Carbon Dioxide 29.1 (21.0-32.0) mmol/L Anion Gap 7.9 (3-11) mmol/L BUN 13 (7-18) mg/dL Creatinine 0.8 (0.55-1.02) mg/dL Est GFR (CKD-EPI 2020) 74.90 (mL/min/1.73m2) Glucose 116 H (74-106) mg/dL Calcium 6.3 L* (8.5-10.1) mg/dL Phosphorus (2.6-4.7) mg/dL Magnesium 2.3 (1.8-2.4) mg/dL Ferritin (8-252) ng/mL Total Bilirubin (0.2-1.0) mg/dL AST (15-37) U/L ALT (14-59) U/L Alkaline Phosphatase (46-116) U/L Creatine Kinase (26-192) U/L Total Protein (6.4-8.2) g/dL Albumin (3.4-5.0) g/dL Lipase (16-77) U/L Procalcitonin ng/mL PTH Intact Urine Color (Yellow) Urine Clarity (Clear) Urine pH (5-8) Ur Specific [place] (1.005-1.025) Urine Protein (Neg-Trace) mg/dL Urine Ketones (Negative) mg/dL Urine Blood (Negative) Urine Nitrite (Negative) Urine Bilirubin (Negative) Urine Urobilinogen (Up to 0.2) mg/dL Ur Leukocyte Esterase (Negative) Urine RBC (0-2) HPF Urine WBC (0-5) HPF Ur Epithelial Cells (Negative) HPF Urine Crystals (Negative) HPF Urine Bacteria (Negative) HPF Urine Casts (Negative) LPF Urine Mucus (Negative) Ur Culture Indicated? Urine Glucose (Negative) mg/dL COVID-19 Source SARS-CoV-2 (PCR) (Negative) Influenza Type A (PCR) (Negative) Influenza Type B (PCR) (Negative) RSV (PCR) (Negative) Add-On Test Request DONE 12/22/23 12/22/23 12/22/23 Range/Units 18:24 18:24 14:25 WBC (4.4-10.8) 10^3/uL RBC (3.93-5.22) 10^6/uL Hgb 10.4 L 10.0 L (11.2-15.7) g/dL Hct 30.9 L 29.2 L (36.0-46.0) % MCV (80-95) fL MCH (27.0-33.0) pg MCHC (32.0-36.0) % RDW (11.7-14.6) % Plt Count (130-400) 10^3/uL MPV (8.0-11.0) fL Immature Gran % % Neutrophils % % Lymphocytes % % Monocytes % % Eosinophils % % Basophils % % Nucleated RBC % (0.0-0.3) % Absolute Neutrophils (1.2-6.7) 10^3/uL Absolute Lymphocytes (1.2-3.4) 10^3/uL Absolute Monocytes (0.1-0.8) 10^3/uL Absolute Eosinophils (0.0-0.7) 10^3/uL Absolute Basophils (0.0-0.2) 10^3/uL PT 10.6 (9.1-11.1) sec INR 1.1 (0.9-1.1) APTT (23.6-32.8) sec VBG Lactate (0.6-1.4) mmol/L Sodium 146 H (136-145) mmol/L Potassium 2.5 L* (3.5-5.1) mmol/L Chloride 105 (98-107) mmol/L Carbon Dioxide 31.2 (21.0-32.0) mmol/L Anion Gap 9.8 (3-11) mmol/L BUN 13 (7-18) mg/dL Creatinine 0.9 (0.55-1.02) mg/dL Est GFR (CKD-EPI 2020) 65.03 (mL/min/1.73m2) Glucose 189 H (74-106) mg/dL Calcium 6.3 L* (8.5-10.1) mg/dL Phosphorus (2.6-4.7) mg/dL Magnesium 1.7 L (1.8-2.4) mg/dL Ferritin Cancelled 92 (8-252) ng/mL Total Bilirubin (0.2-1.0) mg/dL AST (15-37) U/L ALT (14-59) U/L Alkaline Phosphatase (46-116) U/L Creatine Kinase (26-192) U/L Total Protein (6.4-8.2) g/dL Albumin (3.4-5.0) g/dL Lipase (16-77) U/L Procalcitonin ng/mL PTH Intact Urine Color (Yellow) Urine Clarity (Clear) Urine pH (5-8) Ur Specific [place] (1.005-1.025) Urine Protein (Neg-Trace) mg/dL Urine Ketones (Negative) mg/dL Urine Blood (Negative) Urine Nitrite (Negative) Urine Bilirubin (Negative) Urine Urobilinogen (Up to 0.2) mg/dL Ur Leukocyte Esterase (Negative) Urine RBC (0-2) HPF Urine WBC (0-5) HPF Ur Epithelial Cells (Negative) HPF Urine Crystals (Negative) HPF Urine Bacteria (Negative) HPF Urine Casts (Negative) LPF Urine Mucus (Negative) Ur Culture Indicated? Urine Glucose (Negative) mg/dL COVID-19 Source SARS-CoV-2 (PCR) (Negative) Influenza Type A (PCR) (Negative) Influenza Type B (PCR) (Negative) RSV (PCR) (Negative) Add-On Test Request 12/22/23 12/22/23 12/22/23 Range/Units 11:30 10:25 08:34 WBC (4.4-10.8) 10^3/uL RBC (3.93-5.22) 10^6/uL Hgb 10.7 L (11.2-15.7) g/dL Hct 31.7 L (36.0-46.0) % MCV (80-95) fL MCH (27.0-33.0) pg MCHC (32.0-36.0) % RDW (11.7-14.6) % Plt Count (130-400) 10^3/uL MPV (8.0-11.0) fL Immature Gran % % Neutrophils % % Lymphocytes % % Monocytes % % Eosinophils % % Basophils % % Nucleated RBC % (0.0-0.3) % Absolute Neutrophils (1.2-6.7) 10^3/uL Absolute Lymphocytes (1.2-3.4) 10^3/uL Absolute Monocytes (0.1-0.8) 10^3/uL Absolute Eosinophils (0.0-0.7) 10^3/uL Absolute Basophils (0.0-0.2) 10^3/uL PT (9.1-11.1) sec INR (0.9-1.1) APTT (23.6-32.8) sec VBG Lactate (0.6-1.4) mmol/L Sodium (136-145) mmol/L Potassium (3.5-5.1) mmol/L Chloride (98-107) mmol/L Carbon Dioxide (21.0-32.0) mmol/L Anion Gap (3-11) mmol/L BUN (7-18) mg/dL Creatinine (0.55-1.02) mg/dL Est GFR (CKD-EPI 2020) (mL/min/1.73m2) Glucose (74-106) mg/dL Calcium (8.5-10.1) mg/dL Phosphorus (2.6-4.7) mg/dL Magnesium (1.8-2.4) mg/dL Ferritin (8-252) ng/mL Total Bilirubin (0.2-1.0) mg/dL AST (15-37) U/L ALT (14-59) U/L Alkaline Phosphatase (46-116) U/L Creatine Kinase (26-192) U/L Total Protein (6.4-8.2) g/dL Albumin (3.4-5.0) g/dL Lipase (16-77) U/L Procalcitonin ng/mL PTH Intact Urine Color Red (Yellow) Urine Clarity Cloudy (Clear) Urine pH 6.5 (5-8) Ur Specific [place] 1.010 (1.005-1.025) Urine Protein 100 H (Neg-Trace) mg/dL Urine Ketones 15 H (Negative) mg/dL Urine Blood Large H (Negative) Urine Nitrite Negative (Negative) Urine Bilirubin Small H (Negative) Urine Urobilinogen 1.0 H (Up to 0.2) mg/dL Ur Leukocyte Esterase Negative (Negative) Urine RBC >50 H (0-2) HPF Urine WBC 0-2 (0-5) HPF Ur Epithelial Cells Rare (Negative) HPF Urine Crystals Negative (Negative) HPF Urine Bacteria Few (Negative) HPF Urine Casts Negative (Negative) LPF Urine Mucus Trace (Negative) Ur Culture Indicated? No Urine Glucose Negative (Negative) mg/dL COVID-19 Source Nasopharynx SARS-CoV-2 (PCR) Negative (Negative) Influenza Type A (PCR) Negative (Negative) Influenza Type B (PCR) Negative (Negative) RSV (PCR) Negative (Negative) Add-On Test Request 12/22/23 12/22/23 Range/Units 08:05 08:03 WBC 9.91 (4.4-10.8) 10^3/uL RBC 3.61 L (3.93-5.22) 10^6/uL Hgb 11.0 L (11.2-15.7) g/dL Hct 32.3 L (36.0-46.0) % MCV 90 (80-95) fL MCH 30.5 (27.0-33.0) pg MCHC 34.1 (32.0-36.0) % RDW 13.2 (11.7-14.6) % Plt Count 215 (130-400) 10^3/uL MPV 8.9 (8.0-11.0) fL Immature Gran % 0.5 % Neutrophils % 84.0 % Lymphocytes % 10.1 % Monocytes % 4.4 % Eosinophils % 0.5 % Basophils % 0.5 % Nucleated RBC % 0.0 (0.0-0.3) % Absolute Neutrophils 8.32 H (1.2-6.7) 10^3/uL Absolute Lymphocytes 1.00 L (1.2-3.4) 10^3/uL Absolute Monocytes 0.44 (0.1-0.8) 10^3/uL Absolute Eosinophils 0.05 (0.0-0.7) 10^3/uL Absolute Basophils 0.05 (0.0-0.2) 10^3/uL PT 70.6 H (9.1-11.1) sec INR 8.5 H* (0.9-1.1) APTT 58.9 H (23.6-32.8) sec VBG Lactate 1.0 (0.6-1.4) mmol/L Sodium 144 (136-145) mmol/L Potassium 2.1 L* (3.5-5.1) mmol/L Chloride 102 (98-107) mmol/L Carbon Dioxide 32.7 H (21.0-32.0) mmol/L Anion Gap 9.3 (3-11) mmol/L BUN 14 (7-18) mg/dL Creatinine 0.9 (0.55-1.02) mg/dL Est GFR (CKD-EPI 2020) 65.03 (mL/min/1.73m2) Glucose 126 H (74-106) mg/dL Calcium 5.9 L* (8.5-10.1) mg/dL Phosphorus 3.8 (2.6-4.7) mg/dL Magnesium 0.3 L* (1.8-2.4) mg/dL Ferritin (8-252) ng/mL Total Bilirubin 1.66 H (0.2-1.0) mg/dL AST 31 (15-37) U/L ALT 33 (14-59) U/L Alkaline Phosphatase 68 (46-116) U/L Creatine Kinase 1391 H (26-192) U/L Total Protein 6.6 (6.4-8.2) g/dL Albumin 3.0 L (3.4-5.0) g/dL Lipase 20 (16-77) U/L Procalcitonin < 0.1 ng/mL PTH Intact Pending Urine Color (Yellow) Urine Clarity (Clear) Urine pH (5-8) Ur Specific [place] (1.005-1.025) Urine Protein (Neg-Trace) mg/dL Urine Ketones (Negative) mg/dL Urine Blood (Negative) Urine Nitrite (Negative) Urine Bilirubin (Negative) Urine Urobilinogen (Up to 0.2) mg/dL Ur Leukocyte Esterase (Negative) Urine RBC (0-2) HPF Urine WBC (0-5) HPF Ur Epithelial Cells (Negative) HPF Urine Crystals (Negative) HPF Urine Bacteria (Negative) HPF Urine Casts (Negative) LPF Urine Mucus (Negative) Ur Culture Indicated? Urine Glucose (Negative) mg/dL COVID-19 Source SARS-CoV-2 (PCR) (Negative) Influenza Type A (PCR) (Negative) Influenza Type B (PCR) (Negative) RSV (PCR) (Negative) Add-On Test Request Intake and Output - 24 Hour Total 12/22/23 07:38 thru 12/22/23 22:31 Intake Total 1312.667 Output Total 50 Balance 1262.667 Weight 73.7 kg Intake: IV 1312.667 Output: Urine 50 Other: Urine Color Yellow Urine Appearance Clear Urine Odor Strong Comment states she voided twice in the ER for a large amount. bladder scanned in the icu for 0 cc's Falls Risk Assessment History of Falls No History 12/22/23 21:10 Contributing Factors No Factors 12/22/23 21:10 Ambulatory Aids Independent 12/22/23 21:10 Tubes/Lines W/no contributing factors 12/22/23 21:10 Gait Evaluation W/any additional score 12/22/23 21:10 Cognition No cognitive impairment 12/22/23 21:10 Fall Total Score 30 12/22/23 21:10 Level of Risk Moderate Risk 12/22/23 21:10 Problems (Last Reviewed 12/22/23 @ 19:54 by Nelia Hill DO) Anemia due to blood loss, acute (Acute) Rectus sheath hematoma (Acute) Hypomagnesemia (Acute) Hypocalcemia (Acute) Abdominal wall hematoma (Acute) On deep vein thrombosis (DVT) prophylaxis (Acute) Prediabetes (Acute) alf current use of anticoagulants with INR goal of 2.0-3.0 (Chronic) Mixed hyperlipidemia (Acute 12/09/16) Low serum calcium (Acute 05/26/16) Gastroesophageal reflux disease (Acute 12/09/16) Essential hypertension (Acute 12/09/16) Diverticulosis of colon (Acute 12/09/08) v v v v v v v v v Sending and/or Receiving Nurses: Please use comment section below to note any information pertinent to the patient hand-off not included above. Information / Comments: Report received from:India Washington RN
[2023-12-23] VITALS (78 sets, daily range): BP systolic 101–190; BP diastolic 50–147; PULSE 70–146; RESP 14–49; TEMP 36.5–38.4; O2SAT 88–98
[2023-12-23] MEDS: POTASSIUM CHLORIDE 20 MEQ/100 ML BAG 50 MEQ IV_INF (00:47)
[2023-12-23] MEDS: POTASSIUM CHLORIDE/D5-0.9%NACL 1,000 ML 100 MEQ IV ×2 (01:22→11:20)
[2023-12-23] MEDS: HYDROmorphone 1 MG/ML SYR 0.5 MG IVP ×3 (04:58→13:16)
[2023-12-23] MEDS: Normal Saline Flush 10 ML SYR IVP ×3 (04:59→20:32)
[2023-12-23 05:43] LABS: HCT 25.3 % (36.0-46.0); MCH 32.2 pg (27.0-33.0); MCHC 34.8 % (32.0-36.0); MCV 93 fL (80-95); MPV 9.2 fL (8.0-11.0); Platelet Count 180 10^3/uL (130-400); RBC 2.73 10^6/uL (3.93-5.22); RDW 13.6 % (11.7-14.6); RDW-SD 45.1 fL; WBC 7.68 10^3/uL (4.4-10.8)
[2023-12-23 05:53] LABS: Prothrombin Time 10.4 sec (9.1-11.1)
[2023-12-23 05:54] LABS: Magnesium 1.9 mg/dL (1.8-2.4)
[2023-12-23 06:00] LABS: ALT 27 U/L (14-59); AST 34 U/L (15-37); Albumin 2.5 g/dL (3.4-5.0); Alkaline Phosphatase 61 U/L (46-116); Anion Gap 7.1 mmol/L (3-11); BUN 12 mg/dL (7-18); Bilirubin, Total 1.83 mg/dL (0.2-1.0); CO2 29.9 mmol/L (21.0-32.0); CREATININE 0.7 mg/dL (0.55-1.02); Chloride 106 mmol/L (98-107); Estimated GFR 87.92 (mL/min/1.73m2); Glucose 126 mg/dL (74-106); HGB 8.8 g/dL (11.2-15.7); Sodium 143 mmol/L (136-145); Total Protein 5.6 g/dL (6.4-8.2)
[2023-12-23 06:05] LABS: Calcium 6.1 mg/dL (8.5-10.1)
[2023-12-23] MEDS: Omeprazole 20 MG CAPCR PO (07:29)
--- NOTE | 2023-12-23 07:58 | PGE_ITS ---
Date of Service Date of service: 12/23/23 Time of Service: 07:59 Assessment and Plan Assessment and plan (1) Rectus sheath hematoma: Status: Acute Assessment and plan: - INR was reversed with Kcentra and vitamin K in the ER and she did receive TXAx2. Patient remains hemodynamically stable. Hemoglobin is decreased at 8.8, will continue to monitor -She did have significant electrolyte derangements particularly of potassium and calcium and magnesium. These have been addressed and corrected we will continue to trend electrolytes -Will continue to follow her hemoglobin and state of the hematoma. At this time, no surgery is indicated. -Surgery will continue to follow (2) Hypokalemia: Status: Acute Assessment and plan: Continue replacement of potassium at this time via oral and intravenous means. Orders entered, will repeat after infusions of 20 mill equivalents of KCl (3) Low serum calcium: Status: Acute Assessment and plan: Intravenous calcium gluconate ordered for infusion Will repeat laboratory after infusion completed (4) Coagulopathy: Status: Acute Assessment and plan: PT/INR now normalized (5) Mixed hyperlipidemia: Status: Acute (6) longterm current use of anticoagulants with INR goal of 2.0-3.0: Status: Chronic (7) Essential hypertension: Status: Acute (8) Prediabetes: Status: Acute (9) Gastroesophageal reflux disease: Status: Acute (10) Diverticulosis of colon: Status: Acute (11) History of DVT (deep vein thrombosis): Assessment and plan: Patient has had multiple DVTs and PEs. She could not afford a DOAC This is the first bleed she has ever had. (12) History of tobacco abuse: (13) Anemia due to blood loss, acute: Status: Acute Assessment and plan: Ferritin is 92 Subjective Subjective Interval history since last seen: Clinical course reviewed including notes, orders, labs, vitals, meds, imaging, and cultures. Care is discussed with primary nurse. Discussed Patient completed her two doses of TXA. She recieved FFP and Vitamin K Vitals have been stable. Electrolytes are abnormal this am. Ca++ 6.1, K 3.0 post supplementation, Mg++ 1.9 Hgb this am is 8.8 (10.4), PT/INR is 10.4/1.0 (70/8.5) Patient denies fevers, chills, nausea, vomiting or diarrhea. Exam Narrative Exam Narrative: Patient is alert and oriented x 3 and in no acute distress HEENT: Neck supple, MM pink and moist, conjunctiva non-injected, sclera non- icteric, Pupils equal and reactive to light symmetrically, no JVD, no A waves. No thyromegaly. No carotid bruit CHEST: Bilaterally symmetrical with inspiration and expiration. No use of accessory muscles of respiration. No nasal flaring. RESP: Clear to auscultation bilaterally, no rales, rhonchi or wheeze, no pleural friction rub, no post-tussive crackles or apical rales. COR: RRR without murmur, normal S1, S2, no rub or gallop ABDOMEN: Soft, non tender diffusely, normally active bowel sounds diffusely, No hepatosplenomegaly, No abdominal bruit, no masses, no tenderness on deep abdominal palpation. G/U: deferred Rectal: deferred MUSCULOSKELETAL: Bilaterally symmetrical, no muscle belly tenderness or mass DERMIS: Skin warm and dry, no ulcers or rashes, EXTREMITIES: No cyanosis, clubbing or edema, no gross deformities of the large or small joints of the upper or lower extremities. NEUROLOGICAL: Cranial nerves intact II-XII without notable deficit, No peripheral neurosensory or motor deficits noted. LYMPH: No anterior or posterior cervical, no supraclavicular, No axillary, no epitrochlear or femoral lymphadenopathy. Objective Last Vital Signs Temp 36.5 C 12/23/23 05:01 Pulse 77 12/23/23 05:01 Resp 19 12/23/23 05:01 BP 142/69 H 12/23/23 05:01 Pulse Ox 94 12/23/23 05:01 Laboratory Results - last 24 hr 12/22/23 12/22/23 12/22/23 08:03 08:05 08:34 WBC 9.91 RBC 3.61 L Hgb 11.0 L Hct 32.3 L MCV 90 MCH 30.5 MCHC 34.1 RDW 13.2 Plt Count 215 MPV 8.9 Immature Gran % 0.5 Neutrophils % 84.0 Lymphocytes % 10.1 Monocytes % 4.4 Eosinophils % 0.5 Basophils % 0.5 Nucleated RBC % 0.0 Absolute Neutrophils 8.32 H Absolute Lymphocytes 1.00 L Absolute Monocytes 0.44 Absolute Eosinophils 0.05 Absolute Basophils 0.05 PT 70.6 H INR 8.5 H* APTT 58.9 H VBG Lactate 1.0 Sodium 144 Potassium 2.1 L* Chloride 102 Carbon Dioxide 32.7 H Anion Gap 9.3 BUN 14 Creatinine 0.9 Est GFR (CKD-EPI 2020) 65.03 Glucose 126 H Calcium 5.9 L* Phosphorus 3.8 Magnesium 0.3 L* Ferritin Total Bilirubin 1.66 H AST 31 ALT 33 Alkaline Phosphatase 68 Creatine Kinase 1391 H Total Protein 6.6 Albumin 3.0 L Lipase 20 Procalcitonin < 0.1 Urine Color Urine Clarity Urine pH Ur Specific [place] Urine Protein Urine Ketones Urine Blood Urine Nitrite Urine Bilirubin Urine Urobilinogen Ur Leukocyte Esterase Urine RBC Urine WBC Ur Epithelial Cells Urine Crystals Urine Bacteria Urine Casts Urine Mucus Ur Culture Indicated? Urine Glucose COVID-19 Source Nasopharynx SARS-CoV-2 (PCR) Negative Influenza Type A (PCR) Negative Influenza Type B (PCR) Negative RSV (PCR) Negative Add-On Test Request 12/22/23 12/22/23 12/22/23 10:25 11:30 14:25 WBC RBC Hgb 10.7 L 10.0 L Hct 31.7 L 29.2 L MCV MCH MCHC RDW Plt Count MPV Immature Gran % Neutrophils % Lymphocytes % Monocytes % Eosinophils % Basophils % Nucleated RBC % Absolute Neutrophils Absolute Lymphocytes Absolute Monocytes Absolute Eosinophils Absolute Basophils PT INR APTT VBG Lactate Sodium Potassium Chloride Carbon Dioxide Anion Gap BUN Creatinine Est GFR (CKD-EPI 2020) Glucose Calcium Phosphorus Magnesium Ferritin Total Bilirubin AST ALT Alkaline Phosphatase Creatine Kinase Total Protein Albumin Lipase Procalcitonin Urine Color Red Urine Clarity Cloudy Urine pH 6.5 Ur Specific [place] 1.010 Urine Protein 100 H Urine Ketones 15 H Urine Blood Large H Urine Nitrite Negative Urine Bilirubin Small H Urine Urobilinogen 1.0 H Ur Leukocyte Esterase Negative Urine RBC >50 H Urine WBC 0-2 Ur Epithelial Cells Rare Urine Crystals Negative Urine Bacteria Few Urine Casts Negative Urine Mucus Trace Ur Culture Indicated? No Urine Glucose Negative COVID-19 Source SARS-CoV-2 (PCR) Influenza Type A (PCR) Influenza Type B (PCR) RSV (PCR) Add-On Test Request 12/22/23 12/22/23 12/22/23 18:24 18:24 20:44 WBC 10.03 RBC 2.96 L Hgb 10.4 L 9.2 L Hct 30.9 L 27.0 L MCV 91 MCH 31.1 MCHC 34.1 RDW 13.5 Plt Count 200 MPV 9.2 Immature Gran % 0.4 Neutrophils % 80.7 Lymphocytes % 10.8 Monocytes % 6.7 Eosinophils % 1.0 Basophils % 0.4 Nucleated RBC % 0.0 Absolute Neutrophils 8.10 H Absolute Lymphocytes 1.08 L Absolute Monocytes 0.67 Absolute Eosinophils 0.10 Absolute Basophils 0.04 PT 10.6 INR 1.1 APTT VBG Lactate Sodium 146 H Potassium 2.5 L* Chloride 105 Carbon Dioxide 31.2 Anion Gap 9.8 BUN 13 Creatinine 0.9 Est GFR (CKD-EPI 2020) 65.03 Glucose 189 H Calcium 6.3 L* Phosphorus Magnesium 1.7 L 2.3 Ferritin 92 Cancelled Total Bilirubin AST ALT Alkaline Phosphatase Creatine Kinase Total Protein Albumin Lipase Procalcitonin Urine Color Urine Clarity Urine pH Ur Specific [place] Urine Protein Urine Ketones Urine Blood Urine Nitrite Urine Bilirubin Urine Urobilinogen Ur Leukocyte Esterase Urine RBC Urine WBC Ur Epithelial Cells Urine Crystals Urine Bacteria Urine Casts Urine Mucus Ur Culture Indicated? Urine Glucose COVID-19 Source SARS-CoV-2 (PCR) Influenza Type A (PCR) Influenza Type B (PCR) RSV (PCR) Add-On Test Request 12/22/23 12/22/23 12/23/23 22:10 Unknown 05:25 WBC 7.68 RBC 2.73 L Hgb 8.8 L Hct 25.3 L MCV 93 MCH 32.2 MCHC 34.8 RDW 13.6 Plt Count 180 MPV 9.2 Immature Gran % Neutrophils % Lymphocytes % Monocytes % Eosinophils % Basophils % Nucleated RBC % Absolute Neutrophils Absolute Lymphocytes Absolute Monocytes Absolute Eosinophils Absolute Basophils PT 10.4 INR 1.0 APTT VBG Lactate Sodium 141 143 Potassium 2.7 L* 3.0 L Chloride 104 106 Carbon Dioxide 29.1 29.9 Anion Gap 7.9 7.1 BUN 13 12 Creatinine 0.8 0.7 Est GFR (CKD-EPI 2020) 74.90 87.92 Glucose 116 H 126 H Calcium 6.3 L* 6.1 L* Phosphorus Magnesium 1.9 Ferritin Total Bilirubin 1.83 H AST 34 ALT 27 Alkaline Phosphatase 61 Creatine Kinase Total Protein 5.6 L Albumin 2.5 L Lipase Procalcitonin Urine Color Urine Clarity Urine pH Ur Specific [place] Urine Protein Urine Ketones Urine Blood Urine Nitrite Urine Bilirubin Urine Urobilinogen Ur Leukocyte Esterase Urine RBC Urine WBC Ur Epithelial Cells Urine Crystals Urine Bacteria Urine Casts Urine Mucus Ur Culture Indicated? Urine Glucose COVID-19 Source SARS-CoV-2 (PCR) Influenza Type A (PCR) Influenza Type B (PCR) RSV (PCR) Add-On Test Request DONE PAWSS Have you Been Recently Intoxicated or Drunk Within the Last 30 days?: No Have you Ever Experienced Previous Episodes of Alcohol Withdrawal?: No Have you ever Experienced Withdrawal Seizures?: No Have you ever Experienced Delirium Tremens(DT)s?: No Have you ever undergone Alcohol Rehabilitation Treatment (i.e, inpt ot outpatient treatment programs)?: No Have you ever Experienced Blackouts?: No Have you ever Combined Alcohol with other Downers within the last 90 days?: No Have you ever Combined Alcohol with any other Substance of Abuse during the last 90 days?: No Positive Blood Alcohol level on Presentation? [PCS.BAL]: No Evidence of Increased Autonomic Activity (i.e. HR>120, tremor, sweating, agitation, nausea)?: No Result: 0
[2023-12-23] MEDS: MAGNESIUM SULFATE 2 GM/50 ML BAG IV_INF (08:28)
[2023-12-23] MEDS: Multivitamin w/Minerals TAB 1 TAB PO (08:34)
[2023-12-23] MEDS: Losartan 50 MG TAB 100 MG PO (08:36)
[2023-12-23] MEDS: Cyanocobalamin 500 MCG TAB 1000 MCG PO (08:37)
[2023-12-23] MEDS: hydroCHLOROthiazide 25 MG TAB PO (08:37)
[2023-12-23] MEDS: CALCIUM GLUCONATE in NaCl 1 GM/50 ML BAG IVPB ×2 (08:39→14:48)
--- NOTE | 2023-12-23 08:53 | INITIAL_ITS ---
Date of service: 12/23/23 Time of Service: 08:53 Care Management Initial Assmt Initial Assessment Reason for Hospitalization: hematoma, hypokalemia Functional Status/Living Situation Patient Presentation: Rosemary, as Stacy prefers to be called, was sitting up in bed when CM met with her. She was pleasant in interaction and agreeable to conversation. Rosemary was admitted with a rectus muscle bleed and an electrolyte disturbance (Hypokalemia, hypomagnesemia, hypocalcemia). She has been on Warfarin therapy for a history of DVT. Rosemary informed CM that she had been on Xarelto in the past but found it was too expensive. She shared that she has been looking into obtaining it from [facility] where it would only cost about $100/month. Rosemary lives alone in a single family home in [place]. She has one son, Ray, who is close and supportive. She lost another son to cancer last January but remains close to his Vanessa. Rosemary is retired from a career in [employer]. She is indep endent at baseline and does not receive any community services. Town of Residence: [place] Resides with: Alone Significant Other/Family: Local Employment Status: Retired Instrumental Activities of Daily Living (ADLs): Independent Medications Medication Management: No Issues/Barriers identified Physical Functioning/Mobility Assistive Device: none Advance Directives Advance Directives: Do you have an Advance Directive: Y 02/19/23 11:03 AD On File at [facility]: Y 02/19/23 11:03 Date Asked 06/06/20 02/19/23 11:03 AD Date Reviewed 12/22/23 12/22/23 08:07 COLST On File at [facility] COLST Date Scanned Code Status Resuscitation Status Full Code Insurance Coverage/Financial Issues Insurance: Medicare BC/ other Care Team Visit Care Team Role Provider Type Echo Chamberlain NP Primary Care Provider NURSE PRACTITIONER Nelia Hill, DO Other Providers OSTEOPATHIC DOCTOR Blu Hodge MD Emergency Provider [facility] STAFF PHYSICIAN Chico Jasso DO Admit Provider [facility] STAFF PHYSICIAN Attending Provider Discharge Potential Discharge Needs: PCP F/U Appt Anticipated Barriers to Discharge: None Identified Patient/Family Education Needs: Review discharge instructions, discuss Ask Me Three Transportation: Private vehicle Plan: Anticipate Rosemary will be discharged home with no new services when medically cleared. She will follow up with her community providers and plan of care and transport with family. CM will follow and continue to assess for discharge needs. PFSH All Active Problems (Updated 12/23/23 @ 08:06 by Chico Jasso DO) Hypokalemia (Acute) Coagulopathy (Acute) Anemia due to blood loss, acute (Acute) Rectus sheath hematoma (Acute) Hypomagnesemia (Acute) Hypocalcemia (Acute) Abdominal wall hematoma (Acute) On deep vein thrombosis (DVT) prophylaxis (Acute) Mixed urinary incontinence due to female genital prolapse (Acute) Urge incontinence (Acute) Trigger thumb, left thumb (Acute) S/P Release: 11/05/2022 Trigger finger, left middle finger (Acute) S/P Release: 11/05/2022 COVID (Acute 05/20/22) AMD (age related macular degeneration) (Acute ~01/2022) 02/17/22 [facility] ([place]) Primary osteoarthritis of left knee (Acute) Trigger finger (Acute) RMF, RRF, RLF S/P Release of all three fingers: 06/12/2020 Decreased range of motion of finger of right hand (Acute) Prediabetes (Acute) Bruise (Acute) Myalgia (Acute) Sore throat (Acute) Sinusitis (Acute) PND (post-nasal drip) (Acute) Right tennis elbow (Acute) Ankle edema (Acute) long-term current use of anticoagulants with INR goal of 2.0-3.0 (Chronic) Hx > 8, 12/12.. Changing to Xarelto ~ 12/16/21. 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) Left Pain of lower extremity (Acute 12/09/16) Mixed hyperlipidemia (Acute 12/09/16) Low serum calcium (Acute 05/26/16) 05/26/16 7.9 Insomnia (Acute 12/09/16) Gastroesophageal reflux disease (Acute 12/09/16) Fibrosclerosis of breast (Acute 12/09/16) Essential hypertension (Acute 12/09/16) Eczema (Acute 12/09/16) Diverticulosis of colon (Acute 12/09/08) IBIS Mcallister Diverticulosis found in entire colon Barretts esophagus (Acute 12/08/09) EGD Medical History History of tobacco abuse (01/08/17) 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 Fam Hx DVT (mo). Surgical History Sigmoidoscopy (~12/1999) Colonoscopy - MAC (03/30/17) Cholecystectomy Appendectomy Family History Mother Alzheimer's disease Neoplasm Breast Maternal Grandmother Neoplasm Breast Social History Smoking/Tobacco Use Status: Former Tobacco Use Tobacco: How many years used: 25 Smoking risk assessment performed?: Yes Alcohol Intake: current Alcohol Intake frequency: 0-2 drinks per day Alcohol type: wine Counseling given: No Details: 1 glass of wine/maybe one beer/daily. 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 gender identity: female What is your relationship status?: How often do you talk on the phone with friends or family?: twice per week Panel score (0-1 are the most socially isolated patients): 0 What type of physical activity do you participate in: walking and weight lifting Duration: 45-60 minutes/day Frequency: 1-2 times per week Seatbelt use: always Drive intox or ride w/intox local company hazmat driver: No Working smoke detector in home: Yes Fire extinguisher in home: No Carbon monox detector in home: Yes Firearms in home: No Do you feel safe at home: Yes Victim of physical abuse: No Victim of emotional abuse: No SDOH(Care Management) Screening Will the Patient Participate in the Screening?: Yes Do you worry about having a steady place to live?: no Problems where you live: no known problems In the past 12 months, have you had to go without electric, gas, oil or water in your home?: choose not to answer Have you or anyone in your house had to go without enough food to eat?: choose not to answer Has lack of transportation kept you from medical appointments or from doing things needed for daily living?: choose not to answer Has anyone in your support network made you feel unsafe for any reason?: choose not to answer
--- NOTE | 2023-12-23 09:21 | W.PM.PROGNOT ---
Date of Service Date of service: 12/23/23 Time of Service: 16:05 Assessment and Plan Assessment and plan (1) Rectus sheath hematoma: Status: Acute Assessment and plan: 78-year-old woman with a spontaneous rectus sheath hematoma in the setting of supratherapeutic INR. She is hemodynamically stable. Her hemoglobin has been stable. Her subjective symptoms are slightly improved today. No surgical intervention is warranted and the hematoma should not be disturbed. Considering her indication for anticoagulation, it is pretty important for us to get her back on anticoagulation as soon as possible. If her hemoglobin is stable in the morning, which I anticipate, I would start low?dose subcutaneous heparin as DVT prophylaxis. I would also encourage her to be out of bed and ambulate starting tomorrow. We will probably need to consider restarting therapeutic anticoagulation in the next 48-72 hours. This will need to be done here in the hospitalized setting while being monitored to ensure nothing is getting worse before being discharged. She can probably come out of the ICU tomorrow morning. Subjective Subjective Interval history since last seen: No issues overnight. Patient says the pain today is a little bit better than it was yesterday. She is tolerating a regular diet. Exam Narrative Exam Narrative: Gen: Non-toxic, interactive, does not appear in distress or obvious discomfort Neuro: Alert and oriented x3 Psych: Good mood and affect. Good insight and understanding into condition. Chest: Non-labored breathing, no wheezing, no visible shortness of breath. Abdomen: Soft, moderate tenderness to examination as expected. Objective Last Vital Signs Temp 97.7 F 12/23/23 05:01 Pulse 77 12/23/23 05:01 Resp 19 12/23/23 05:01 BP 142/69 H 12/23/23 05:01 Pulse Ox 92 12/23/23 08:09 Laboratory Results - last 24 hr 12/22/23 12/22/23 12/22/23 08:03 08:05 10:25 WBC RBC Hgb 10.7 L Hct 31.7 L MCV MCH MCHC RDW Plt Count MPV Immature Gran % Neutrophils % Lymphocytes % Monocytes % Eosinophils % Basophils % Nucleated RBC % Absolute Neutrophils Absolute Lymphocytes Absolute Monocytes Absolute Eosinophils Absolute Basophils PT INR 8.5 H* Sodium Potassium Chloride Carbon Dioxide Anion Gap BUN Creatinine Est GFR (CKD-EPI 2020) Glucose Calcium Phosphorus 3.8 Magnesium Ferritin Total Bilirubin AST ALT Alkaline Phosphatase Creatine Kinase 1391 H Total Protein Albumin PTH Intact 37 Urine Color Urine Clarity Urine pH Ur Specific [place] Urine Protein Urine Ketones Urine Blood Urine Nitrite Urine Bilirubin Urine Urobilinogen Ur Leukocyte Esterase Urine RBC Urine WBC Ur Epithelial Cells Urine Crystals Urine Bacteria Urine Casts Urine Mucus Ur Culture Indicated? Urine Glucose Add-On Test Request 12/22/23 12/22/23 12/22/23 11:30 14:25 18:24 WBC RBC Hgb 10.0 L 10.4 L Hct 29.2 L 30.9 L MCV MCH MCHC RDW Plt Count MPV Immature Gran % Neutrophils % Lymphocytes % Monocytes % Eosinophils % Basophils % Nucleated RBC % Absolute Neutrophils Absolute Lymphocytes Absolute Monocytes Absolute Eosinophils Absolute Basophils PT 10.6 INR 1.1 Sodium 146 H Potassium 2.5 L* Chloride 105 Carbon Dioxide 31.2 Anion Gap 9.8 BUN 13 Creatinine 0.9 Est GFR (CKD-EPI 2020) 65.03 Glucose 189 H Calcium 6.3 L* Phosphorus Magnesium 1.7 L Ferritin 92 Total Bilirubin AST ALT Alkaline Phosphatase Creatine Kinase Total Protein Albumin PTH Intact Urine Color Red Urine Clarity Cloudy Urine pH 6.5 Ur Specific [place] 1.010 Urine Protein 100 H Urine Ketones 15 H Urine Blood Large H Urine Nitrite Negative Urine Bilirubin Small H Urine Urobilinogen 1.0 H Ur Leukocyte Esterase Negative Urine RBC >50 H Urine WBC 0-2 Ur Epithelial Cells Rare Urine Crystals Negative Urine Bacteria Few Urine Casts Negative Urine Mucus Trace Ur Culture Indicated? No Urine Glucose Negative Add-On Test Request 12/22/23 12/22/23 12/22/23 18:24 20:44 22:10 WBC 10.03 RBC 2.96 L Hgb 9.2 L Hct 27.0 L MCV 91 MCH 31.1 MCHC 34.1 RDW 13.5 Plt Count 200 MPV 9.2 Immature Gran % 0.4 Neutrophils % 80.7 Lymphocytes % 10.8 Monocytes % 6.7 Eosinophils % 1.0 Basophils % 0.4 Nucleated RBC % 0.0 Absolute Neutrophils 8.10 H Absolute Lymphocytes 1.08 L Absolute Monocytes 0.67 Absolute Eosinophils 0.10 Absolute Basophils 0.04 PT INR Sodium 141 Potassium 2.7 L* Chloride 104 Carbon Dioxide 29.1 Anion Gap 7.9 BUN 13 Creatinine 0.8 Est GFR (CKD-EPI 2020) 74.90 Glucose 116 H Calcium 6.3 L* Phosphorus Magnesium 2.3 Ferritin Cancelled Total Bilirubin AST ALT Alkaline Phosphatase Creatine Kinase Total Protein Albumin PTH Intact Urine Color Urine Clarity Urine pH Ur Specific [place] Urine Protein Urine Ketones Urine Blood Urine Nitrite Urine Bilirubin Urine Urobilinogen Ur Leukocyte Esterase Urine RBC Urine WBC Ur Epithelial Cells Urine Crystals Urine Bacteria Urine Casts Urine Mucus Ur Culture Indicated? Urine Glucose Add-On Test Request 12/22/23 12/23/23 Unknown 05:25 WBC 7.68 RBC 2.73 L Hgb 8.8 L Hct 25.3 L MCV 93 MCH 32.2 MCHC 34.8 RDW 13.6 Plt Count 180 MPV 9.2 Immature Gran % Neutrophils % Lymphocytes % Monocytes % Eosinophils % Basophils % Nucleated RBC % Absolute Neutrophils Absolute Lymphocytes Absolute Monocytes Absolute Eosinophils Absolute Basophils PT 10.4 INR 1.0 Sodium 143 Potassium 3.0 L Chloride 106 Carbon Dioxide 29.9 Anion Gap 7.1 BUN 12 Creatinine 0.7 Est GFR (CKD-EPI 2020) 87.92 Glucose 126 H Calcium 6.1 L* Phosphorus Magnesium 1.9 Ferritin Total Bilirubin 1.83 H AST 34 ALT 27 Alkaline Phosphatase 61 Creatine Kinase Total Protein 5.6 L Albumin 2.5 L PTH Intact Urine Color Urine Clarity Urine pH Ur Specific [place] Urine Protein Urine Ketones Urine Blood Urine Nitrite Urine Bilirubin Urine Urobilinogen Ur Leukocyte Esterase Urine RBC Urine WBC Ur Epithelial Cells Urine Crystals Urine Bacteria Urine Casts Urine Mucus Ur Culture Indicated? Urine Glucose Add-On Test Request DONE PAWSS Have you Been Recently Intoxicated or Drunk Within the Last 30 days?: No Have you Ever Experienced Previous Episodes of Alcohol Withdrawal?: No Have you ever Experienced Withdrawal Seizures?: No Have you ever Experienced Delirium Tremens(DT)s?: No Have you ever undergone Alcohol Rehabilitation Treatment (i.e, inpt ot outpatient treatment programs)?: No Have you ever Experienced Blackouts?: No Have you ever Combined Alcohol with other Downers within the last 90 days?: No Have you ever Combined Alcohol with any other Substance of Abuse during the last 90 days?: No Positive Blood Alcohol level on Presentation? [PCS.BAL]: No Evidence of Increased Autonomic Activity (i.e. HR>120, tremor, sweating, agitation, nausea)?: No Result: 0 Time Spent with Patient Time Spent with Patient: 25-34 minutes Time was spent: preparing to see the patient(eg.review tests), obtaining and/or reviewing separately [facility] hiistory, indepentently interpreting results and care coordination
--- NOTE | 2023-12-23 10:05 | PGE_ITS ---
Date of Service Date of service: 12/23/23 Time of Service: 10:05 Assessment and Plan Assessment and plan (1) Abdominal wall hematoma: Status: Acute Assessment and plan: Surgery consult in progress Initial H&H 11& 32 CBC at 18:00 and in AM Warfarin on hold INR 1.0- Hgb now stable at 9.4 - was as low as 8.8 Will resume LMWH to bridge for DVT treatment Stop IVF CBC Q 12 (2) Hypokalemia: Status: Acute Assessment and plan: K 3.7 Supplementation given for K as low as 2.7 Stop IVF CMP in AM Conitnue Telemetry (3) Hypocalcemia: Status: Acute Assessment and plan: Ca 5.9 now 6.3 Ca gluconate IV in ED and X2 on the floor Ca 6.3 w albumin of 3.0 corrected at 7.1 Will order 1 gm of Ca gluconate-CMP at 18:00 Ionized Ca ordered- send out PTH ordered Oral Ca Carbonate CMP in AM (4) Hypomagnesemia: Status: Acute Assessment and plan: Mg 0.3 on arrival Supplementation given now Mg level 2.2 Mg in AM (5) On deep vein thrombosis (DVT) prophylaxis: Status: Acute Assessment and plan: TEDs Holding oral anticoagulation LMWH therapeutic dosing for DVT to start this HS Considering eliquis VS xeralto VS LMWH at home with transition as per PCP Discussed with Dr. Jasso Subjective Subjective Patient reports: feels better, tolerating liquids well, tolerating a regular diet, flatus, no bowel movement, fever and other (No c/o increased WOB); denies diarrhea, nausea, vomiting or shortness of breath Exam Narrative Exam Narrative: Constitutional The patient is chair without acute distress HENMT: Facial structures with normal appearance Neuro:alert and oriented X 4 .No neurological focal deficit Chest:Chest is symmetrical and normal appearance Resp:Scattered ronchi clearing with cough, remains tight after reduced coughing spells Cardio:Tele: SR HR 88, regular rhythm, S1, S2,bilateral radial and dorsalis pedis pulses are positive GI: Abdomen is not distended, soft and non tender, bowel sounds are present Back/spine/Pelvis: No back tenderness, normal alignment Integumentary: Bruise to abdomen Extremities: strength 5/5 to bilateral lower and upper extremities Psych: RASS 0, congruent mood and normal affect. Objective Last Vital Signs Temp 36.5 C 12/23/23 05:01 Pulse 77 12/23/23 05:01 Resp 19 12/23/23 05:01 BP 142/69 H 12/23/23 05:01 Pulse Ox 92 12/23/23 08:09 Laboratory Results - last 24 hr 12/22/23 12/22/23 12/22/23 08:03 08:05 10:25 WBC RBC Hgb 10.7 L Hct 31.7 L MCV MCH MCHC RDW Plt Count MPV Immature Gran % Neutrophils % Lymphocytes % Monocytes % Eosinophils % Basophils % Nucleated RBC % Absolute Neutrophils Absolute Lymphocytes Absolute Monocytes Absolute Eosinophils Absolute Basophils PT INR 8.5 H* Sodium Potassium Chloride Carbon Dioxide Anion Gap BUN Creatinine Est GFR (CKD-EPI 2020) Glucose Calcium Phosphorus 3.8 Magnesium Ferritin Total Bilirubin AST ALT Alkaline Phosphatase Creatine Kinase 1391 H Total Protein Albumin PTH Intact 37 Urine Color Urine Clarity Urine pH Ur Specific [place] Urine Protein Urine Ketones Urine Blood Urine Nitrite Urine Bilirubin Urine Urobilinogen Ur Leukocyte Esterase Urine RBC Urine WBC Ur Epithelial Cells Urine Crystals Urine Bacteria Urine Casts Urine Mucus Ur Culture Indicated? Urine Glucose Add-On Test Request 12/22/23 12/22/23 12/22/23 11:30 14:25 18:24 WBC RBC Hgb 10.0 L 10.4 L Hct 29.2 L 30.9 L MCV MCH MCHC RDW Plt Count MPV Immature Gran % Neutrophils % Lymphocytes % Monocytes % Eosinophils % Basophils % Nucleated RBC % Absolute Neutrophils Absolute Lymphocytes Absolute Monocytes Absolute Eosinophils Absolute Basophils PT 10.6 INR 1.1 Sodium 146 H Potassium 2.5 L* Chloride 105 Carbon Dioxide 31.2 Anion Gap 9.8 BUN 13 Creatinine 0.9 Est GFR (CKD-EPI 2020) 65.03 Glucose 189 H Calcium 6.3 L* Phosphorus Magnesium 1.7 L Ferritin 92 Total Bilirubin AST ALT Alkaline Phosphatase Creatine Kinase Total Protein Albumin PTH Intact Urine Color Red Urine Clarity Cloudy Urine pH 6.5 Ur Specific [place] 1.010 Urine Protein 100 H Urine Ketones 15 H Urine Blood Large H Urine Nitrite Negative Urine Bilirubin Small H Urine Urobilinogen 1.0 H Ur Leukocyte Esterase Negative Urine RBC >50 H Urine WBC 0-2 Ur Epithelial Cells Rare Urine Crystals Negative Urine Bacteria Few Urine Casts Negative Urine Mucus Trace Ur Culture Indicated? No Urine Glucose Negative Add-On Test Request 12/22/23 12/22/2324 18:24 20:44 22:10 WBC 10.03 RBC 2.96 L Hgb 9.2 L Hct 27.0 L MCV 91 MCH 31.1 MCHC 34.1 RDW 13.5 Plt Count 200 MPV 9.2 Immature Gran % 0.4 Neutrophils % 80.7 Lymphocytes % 10.8 Monocytes % 6.7 Eosinophils % 1.0 Basophils % 0.4 Nucleated RBC % 0.0 Absolute Neutrophils 8.10 H Absolute Lymphocytes 1.08 L Absolute Monocytes 0.67 Absolute Eosinophils 0.10 Absolute Basophils 0.04 PT INR Sodium 141 Potassium 2.7 L* Chloride 104 Carbon Dioxide 29.1 Anion Gap 7.9 BUN 13 Creatinine 0.8 Est GFR (CKD-EPI 2020) 74.90 Glucose 116 H Calcium 6.3 L* Phosphorus Magnesium 2.3 Ferritin Cancelled Total Bilirubin AST ALT Alkaline Phosphatase Creatine Kinase Total Protein Albumin PTH Intact Urine Color Urine Clarity Urine pH Ur Specific [place] Urine Protein Urine Ketones Urine Blood Urine Nitrite Urine Bilirubin Urine Urobilinogen Ur Leukocyte Esterase Urine RBC Urine WBC Ur Epithelial Cells Urine Crystals Urine Bacteria Urine Casts Urine Mucus Ur Culture Indicated? Urine Glucose Add-On Test Request 12/22/23 12/23/23 Unknown 05:25 WBC 7.68 RBC 2.73 L Hgb 8.8 L Hct 25.3 L MCV 93 MCH 32.2 MCHC 34.8 RDW 13.6 Plt Count 180 MPV 9.2 Immature Gran % Neutrophils % Lymphocytes % Monocytes % Eosinophils % Basophils % Nucleated RBC % Absolute Neutrophils Absolute Lymphocytes Absolute Monocytes Absolute Eosinophils Absolute Basophils PT 10.4 INR 1.0 Sodium 143 Potassium 3.0 L Chloride 106 Carbon Dioxide 29.9 Anion Gap 7.1 BUN 12 Creatinine 0.7 Est GFR (CKD-EPI 2020) 87.92 Glucose 126 H Calcium 6.1 L* Phosphorus Magnesium 1.9 Ferritin Total Bilirubin 1.83 H AST 34 ALT 27 Alkaline Phosphatase 61 Creatine Kinase Total Protein 5.6 L Albumin 2.5 L PTH Intact Urine Color Urine Clarity Urine pH Ur Specific [place] Urine Protein Urine Ketones Urine Blood Urine Nitrite Urine Bilirubin Urine Urobilinogen Ur Leukocyte Esterase Urine RBC Urine WBC Ur Epithelial Cells Urine Crystals Urine Bacteria Urine Casts Urine Mucus Ur Culture Indicated? Urine Glucose Add-On Test Request DONE PAWSS Have you Been Recently Intoxicated or Drunk Within the Last 30 days?: No Have you Ever Experienced Previous Episodes of Alcohol Withdrawal?: No Have you ever Experienced Withdrawal Seizures?: No Have you ever Experienced Delirium Tremens(DT)s?: No Have you ever undergone Alcohol Rehabilitation Treatment (i.e, inpt ot outpatient treatment programs)?: No Have you ever Experienced Blackouts?: No Have you ever Combined Alcohol with other Downers within the last 90 days?: No Have you ever Combined Alcohol with any other Substance of Abuse during the last 90 days?: No Positive Blood Alcohol level on Presentation? [PCS.BAL]: No Evidence of Increased Autonomic Activity (i.e. HR>120, tremor, sweating, agitation, nausea)?: No Result: 0 Time Spent with Patient Time Spent with Patient: >50 minutes Time was spent: preparing to see the patient(eg.review tests), obtaining and/or reviewing separately otained hiistory, ordering medications,tests, procedures, referring, communicating with other health childcare center administrator, indepentently interpreting results, counseling the patient and care coordination
[2023-12-23] MEDS: POTASSIUM CHLORIDE 10 MEQ/100 ML BAG 100 MEQ IV_INF ×2 (10:19→11:05)
[2023-12-23 13:13] LABS: HCT 27.8 % (36.0-46.0); HGB 9.4 g/dL (11.2-15.7)
--- NOTE | 2023-12-23 13:15 | PHACLINREV_ITS ---
Pharmacy Admission Review Admission Clinical Review Admission Pharmacy Review: Hypokalemia (Acute) Coagulopathy (Acute) Anemia due to blood loss, acute (Acute) Rectus sheath hematoma (Acute) Hypomagnesemia (Acute) Hypocalcemia (Acute) Abdominal wall hematoma (Acute) On deep vein thrombosis (DVT) prophylaxis (Acute) Prediabetes (Acute) Mixed hyperlipidemia (Acute 12/09/16) Low serum calcium (Acute 05/26/16) Gastroesophageal reflux disease (Acute 12/09/16) Essential hypertension (Acute 12/09/16) Diverticulosis of colon (Acute 12/09/08) No Known Allergies Allergy (Verified 12/22/23 07:48) Resuscitation Status Full Code Height 5 ft 3 in Weight 75.1 kg Pharmacy Admission Review Renal Dosing Renal Dosing: BUN 12 mg/dL (7-18) 12/23/23 05:25 Creatinine 0.7 mg/dL (0.55-1.02) 12/23/23 05:25 Medications needing adjustments: Reviewed (CrCl 43.87 mL/min) List of meds needing interventions: Current medications are okay Anticoagulation Anticoagulation: Hgb 8.8 g/dL (11.2-15.7) L 12/23/23 05:25 Hct 25.3 % (36.0-46.0) L 12/23/23 05:25 Plt Count 180 10^3/uL (130-400) 12/23/23 05:25 INR 1.0 (0.9-1.1) 12/23/23 05:25 Creatinine 0.7 mg/dL (0.55-1.02) 12/23/23 05:25 Therapeutic Anticoagulation: Intervened (originally reached out to provider as H+P said TEDs only but no order had been put in. Provider then put in order. Lovenox order placed later in day, confirmed that provider does want therapeutic dosing as a bridge to patients home warfarin.) Medications: Enoxaparin (80mg q12h) Opiate Usage Evaluate Pain Scale/Pains Meds: Reviewed (hydromorphone IVP PRN - 4 doses given) Relevant Labs Relevant Labs: Sodium 143 mmol/L (136-145) 12/23/23 05:25 Potassium 3.0 mmol/L (3.5-5.1) L 12/23/23 05:25 Chloride 106 mmol/L (98-107) 12/23/23 05:25 Phosphorus 3.8 mg/dL (2.6-4.7) 12/22/23 08:05 Magnesium 1.9 mg/dL (1.8-2.4) 12/23/23 05:25 Electrolytes, C-Reactive P, ESR: Reviewed (repleting electrolytes - IV calcium gluconate, IV magnesium and IV potassium. Patient is also receiving potassium/D5NS infusion at 100 mls/hr. Repeat labs currently pending) Cardiac Review Cardiac Review: Blood Pressure 190/81 1302 Blood Pressure 144/76 1105 Blood Pressure 140/65 1035 Blood Pressure 131/69 1031 Blood Pressure 143/70 1026 Blood Pressure 142/70 1021 Blood Pressure 151/85 1016 Blood Pressure 152/78 1011 Blood Pressure 144/77 1006 Blood Pressure 141/79 1001 BP, HR, EF%: Reviewed (HR 116 - has been WNL for most of the day) List meds needing interventions: Has order for PRN furosemide (edema), HCTZ 25mg daily and losartan 100mg daily QTc Review QTc: Reviewed (540 from 12/22/23) IV to PO Switch IV Medications: Reviewed (hydromorphone) Home Meds Home Med List reviewed: Intervened Relevent Home Meds Not ordered & why?: warfarin (on hold) Changed betamethasone cream to patients own order. Called nursing who is going to ask patient if this can be brought in for her if needed. Waiting to hear back . Current Meds Current Medication Order Review: Reviewed
[2023-12-23] MEDS: Acetaminophen 500 MG TAB 1000 MG PO ×2 (13:16→19:23)
[2023-12-23] MEDS: Benzonatate 200 MG CAP PO ×2 (13:16→19:22)
[2023-12-23 13:28] LABS: ALT 30 U/L (14-59); AST 30 U/L (15-37); Albumin 2.7 g/dL (3.4-5.0); Alkaline Phosphatase 75 U/L (46-116); Anion Gap 7.8 mmol/L (3-11); BUN 8 mg/dL (7-18); CO2 26.2 mmol/L (21.0-32.0); CREATININE 0.8 mg/dL (0.55-1.02); Chloride 105 mmol/L (98-107); Glucose 158 mg/dL (74-106); Magnesium 2.2 mg/dL (1.8-2.4); Potassium 3.7 mmol/L (3.5-5.1); Sodium 139 mmol/L (136-145); Total Protein 6.2 g/dL (6.4-8.2)
[2023-12-23 13:31] LABS: Calcium 6.3 mg/dL (8.5-10.1)
[2023-12-23] MEDS: Calcium Carbonate *TUMS* 500 MG CHEW PO ×2 (14:47→19:25)
[2023-12-23] MEDS: Cholecalciferol (Vitamin D3) 1,000 UNIT TAB 1000 UNITS PO (14:47)
[2023-12-23 18:12] LABS: Abs Immature Grans 0.06 10^3/uL (0.0-0.06); Absolute Basophil Count 0.04 10^3/uL (0.0-0.2); Absolute Eosinophil Count 0.25 10^3/uL (0.0-0.7); Absolute Lymphocyte Count 1.24 10^3/uL (1.2-3.4); Absolute Monocyte Count 0.57 10^3/uL (0.1-0.8); Absolute Neutrophil Count 7.82 10^3/uL (1.2-6.7); Basophils % 0.4 %; Eosinophils % 2.5 %; HCT 27.7 % (36.0-46.0); HGB 9.3 g/dL (11.2-15.7); Immature Grans % 0.6 %; Lymphocytes % 12.4 %; MCHC 33.6 % (32.0-36.0); MCV 92 fL (80-95); MPV 9.2 fL (8.0-11.0); Monocytes % 5.7 %; Neutrophils % 78.4 %; Platelet Count 203 10^3/uL (130-400); RDW 13.2 % (11.7-14.6); RDW-SD 44.7 fL; WBC 9.98 10^3/uL (4.4-10.8)
[2023-12-23 18:27] LABS: ALT 28 U/L (14-59); AST 33 U/L (15-37); Albumin 2.8 g/dL (3.4-5.0); Alkaline Phosphatase 74 U/L (46-116); Anion Gap 6.9 mmol/L (3-11); BUN 8 mg/dL (7-18); Bilirubin, Total 1.77 mg/dL (0.2-1.0); CO2 29.1 mmol/L (21.0-32.0); CREATININE 0.7 mg/dL (0.55-1.02); Calcium 6.9 mg/dL (8.5-10.1); Chloride 104 mmol/L (98-107); Estimated GFR 87.92 (mL/min/1.73m2); Glucose 154 mg/dL (74-106); Potassium 3.3 mmol/L (3.5-5.1); Sodium 140 mmol/L (136-145); Total Protein 6.3 g/dL (6.4-8.2)
[2023-12-23] MEDS: Atorvastatin 40 MG TAB PO (19:25)
[2023-12-23] MEDS: Enoxaparin 80 MG/0.8 ML SYR SC (19:25)
--- NOTE | 2023-12-23 23:00 | RT.EKG_ITS ---
APPROVED REPORT Exam: Resting ECG Reason for Exam: AF new Patient Location: I HR:129 bpm ECG Measurements Heart Rate 129 AXIS IA 114 P 79 QRSd 104 QRS 37 QT 376 T 41 QTc 551 Conclusion Sinus tachycardia...rate> 99 Ventricular premature complex...V complex w/ short R-R interval Borderline ST depression, anterolateral leads...ST <-0.07mV, I aVL V2-V6 Multiple PACs Prolonged QT interval...QTc >500mS
[2023-12-23] MEDS: Metoprolol 5 MG/5 ML VIAL IVP (23:16)
[2023-12-23 23:44] LABS: Magnesium 1.9 mg/dL (1.8-2.4); Potassium 3.2 mmol/L (3.5-5.1)
--- NOTE | 2023-12-23 23:54 | CE_ITS ---
Date of service: 12/23/23 Time of Service: 23:54 Event Note: Called for tachycardia. Case reviewed, here with rectus sheath hematoma in setting of elevated INR (on Coumadin for h/o DVT). On monitor patiebt having bursts of AF to 150-160 range, alternating with NSR. Patient denies h/o AF. Denies CO or SOB. BP 150/sys during visit. Patient given Lopressor 5 IV with cessation of periods of AF, NSR 80s, BP 137/74. EKG shows no jone ischemic changes, approx 1/[address] segments in scattered leads. K 3.2, Mg 1.9. A/P: PAF, this would be a new diagnosis. Electrolyte abnormalities may be playing a role. In any case has responded well to beta dena, will give 25 PO Lopressor now and further dosing to be determined. As to anticoagulation, [id number] 4, candidate for anticoagulation, but issue is moot (for now) as patient is on Coumadin already. However, this is for DVT (viz, short term) and may then be candidate for [facility]. Time Spent with Patient Time spent in critical care(minutes): 60 Time Spent Included: Coordination of care, Chart review, Documenting critically ill care, Time at immediate bedside and Discussing critically ill care with other medical staff
[2023-12-24] VITALS (33 sets, daily range): BP systolic 106–162; BP diastolic 53–108; PULSE 66–103; RESP 3–37; TEMP 36.6–37.8; O2SAT 88–97
[2023-12-24] MEDS: MAGNESIUM SULFATE 1 GM/100 ML BAG IV_INF (00:19)
[2023-12-24] MEDS: Potassium Chloride 20 MEQ TABCR 10 MEQ PO (00:21)
[2023-12-24] MEDS: POTASSIUM CHLORIDE 20 MEQ/100 ML BAG 50 MEQ IV_INF (00:21)
[2023-12-24] MEDS: Metoprolol 25 MG TAB PO (00:22)
[2023-12-24] MEDS: POTASSIUM CHLORIDE 20 MEQ/100 ML BAG 10 MEQ IV_INF (02:02)
[2023-12-24 06:13] LABS: Abs Immature Grans 0.03 10^3/uL (0.0-0.06); Absolute Basophil Count 0.09 10^3/uL (0.0-0.2); Absolute Lymphocyte Count 1.34 10^3/uL (1.2-3.4); Absolute Monocyte Count 0.46 10^3/uL (0.1-0.8); Absolute Neutrophil Count 6.98 10^3/uL (1.2-6.7); Eosinophils % 3.3 %; HCT 25.4 % (36.0-46.0); HGB 8.9 g/dL (11.2-15.7); Immature Grans % 0.3 %; Lymphocytes % 14.6 %; MCH 32.4 pg (27.0-33.0); MCV 92 fL (80-95); MPV 9.3 fL (8.0-11.0); Neutrophils % 75.8 %; Platelet Count 226 10^3/uL (130-400); RBC 2.75 10^6/uL (3.93-5.22); RDW 13.4 % (11.7-14.6); RDW-SD 44.3 fL
[2023-12-24 06:37] LABS: ALT 31 U/L (14-59); AST 32 U/L (15-37); Albumin 2.6 g/dL (3.4-5.0); Alkaline Phosphatase 77 U/L (46-116); Anion Gap 6.8 mmol/L (3-11); BUN 7 mg/dL (7-18); Bilirubin, Total 1.85 mg/dL (0.2-1.0); CO2 29.2 mmol/L (21.0-32.0); CREATININE 0.7 mg/dL (0.55-1.02); Calcium 7.2 mg/dL (8.5-10.1); Chloride 106 mmol/L (98-107); Estimated GFR 87.92 (mL/min/1.73m2); Glucose 127 mg/dL (74-106); Potassium 3.7 mmol/L (3.5-5.1); Sodium 142 mmol/L (136-145); Total Protein 6.2 g/dL (6.4-8.2)
[2023-12-24] MEDS: Calcium Carbonate *TUMS* 500 MG CHEW PO ×3 (07:33→20:43)
[2023-12-24] MEDS: Benzonatate 200 MG CAP PO ×3 (07:34→20:43)
[2023-12-24] MEDS: Omeprazole 20 MG CAPCR PO (07:34)
[2023-12-24] MEDS: Losartan 50 MG TAB 100 MG PO (07:34)
[2023-12-24] MEDS: Multivitamin w/Minerals TAB 1 TAB PO (07:34)
[2023-12-24] MEDS: hydroCHLOROthiazide 25 MG TAB PO (07:34)
[2023-12-24] MEDS: Cyanocobalamin 500 MCG TAB 1000 MCG PO (07:34)
[2023-12-24] MEDS: Acetaminophen 500 MG TAB 1000 MG PO ×2 (07:34→15:58)
[2023-12-24] MEDS: Cholecalciferol (Vitamin D3) 1,000 UNIT TAB 1000 UNITS PO (07:35)
[2023-12-24] MEDS: Enoxaparin 80 MG/0.8 ML SYR SC (07:35)
[2023-12-24] MEDS: Normal Saline Flush 10 ML SYR IVP ×2 (07:42→20:42)
--- NOTE | 2023-12-24 08:19 | PGE_ITS ---
Date of Service Date of service: 12/24/23 Time of Service: 08:19 Assessment and Plan Assessment and plan (1) Rectus sheath hematoma: Status: Acute Assessment and plan: 78-year-old woman with a spontaneous rectus sheath hematoma because of supratherapeutic INR and coughing. No changes in recommendations. There are no clear-cut guidelines for this condition however 1 thing is certain, she needs to be anticoagulated because of her history. We simply need to resume her anticoagulation cautiously and while monitoring her. I think she should be up and ambulatory at this point, in a sense, attempting to provoke the hematoma. She should be on DVT prophylaxis. If her hemoglobin is stable tomorrow after being up and ambulatory today I would recommend to start low?dose, sub-therapeutic IV heparin. I would then monitor her for 24-48 hours and slowly increase the heparin to therapeutic?levels over that timeframe, while under observation. I do not think she needs to be in the ICU for any of this and can be monitored on the [facility] floor at this point. Surgery signing off, call us back as needed. Subjective Subjective Interval history since last seen: Doing great. Abdominal pain improving. She has been up a little bit but not much. Hemoglobin stable. Exam Narrative Exam Narrative: General: Nontoxic, comfortable and interactive Abdomen: Soft, nondistended, still appropriately tender as expected but nothing worse. Objective Last Vital Signs Temp 99.0 F 12/24/23 00:06 Pulse 66 12/24/23 02:01 Resp 25 H 12/24/23 02:30 BP 130/53 L 12/24/23 02:01 Pulse Ox 89 L 12/24/23 02:01 Laboratory Results - last 24 hr 12/23/23 12/23/23 12/23/23 12:45 17:45 18:00 WBC Cancelled 9.98 RBC Cancelled 3.00 L Hgb 9.4 L Cancelled 9.3 L Hct 27.8 L Cancelled 27.7 L MCV Cancelled 92 MCH Cancelled 31.0 MCHC Cancelled 33.6 RDW Cancelled 13.2 Plt Count Cancelled 203 MPV Cancelled 9.2 Immature Gran % Cancelled 0.6 Neutrophils % Cancelled 78.4 Band Neutrophils % Cancelled Lymphocytes % Cancelled 12.4 Atypical Lymphs % Cancelled Monocytes % Cancelled 5.7 Eosinophils % Cancelled 2.5 Basophils % Cancelled 0.4 Metamyelocytes % Cancelled Myelocytes % Cancelled Promyelocytes % Cancelled Other Cells % Cancelled Nucleated RBC % Cancelled 0.0 Absolute Neutrophils Cancelled 7.82 H Absolute Lymphocytes Cancelled 1.24 Absolute Monocytes Cancelled 0.57 Absolute Eosinophils Cancelled 0.25 Absolute Basophils Cancelled 0.04 RBC Morphology Cancelled Polychromasia Cancelled Hypochromasia Cancelled Poikilocytosis Cancelled Basophilic Stippling Cancelled Anisocytosis Cancelled Microcytosis Cancelled Macrocytosis Cancelled Spherocytes Cancelled Tear Drop Cells Cancelled Ovalocytes Cancelled Stomatocytes Cancelled [place]arden-Star Bodies Cancelled [place] Cells/Echinocytes Cancelled Acanthocytes (Spur) Cancelled Schistocytes Cancelled Sodium 139 140 Potassium 3.7 3.3 L Chloride 105 104 Carbon Dioxide 26.2 29.1 Anion Gap 7.8 6.9 BUN 8 8 Creatinine 0.8 0.7 Est GFR (CKD-EPI 2020) 74.90 87.92 Glucose 158 H 154 H Calcium 6.3 L* 6.9 L Magnesium 2.2 Total Bilirubin 1.90 H 1.77 H AST 30 33 ALT 30 28 Alkaline Phosphatase 75 74 Total Protein 6.2 L 6.3 L Albumin 2.7 L 2.8 L 12/23/23 12/24/23 23:24 05:40 WBC 9.20 RBC 2.75 L Hgb 8.9 L Hct 25.4 L MCV 92 MCH 32.4 MCHC 35.0 RDW 13.4 Plt Count 226 MPV 9.3 Immature Gran % 0.3 Neutrophils % 75.8 Band Neutrophils % Lymphocytes % 14.6 Atypical Lymphs % Monocytes % 5.0 Eosinophils % 3.3 Basophils % 1.0 Metamyelocytes % Myelocytes % Promyelocytes % Other Cells % Nucleated RBC % 0.0 Absolute Neutrophils 6.98 H Absolute Lymphocytes 1.34 Absolute Monocytes 0.46 Absolute Eosinophils 0.30 Absolute Basophils 0.09 RBC Morphology Polychromasia Hypochromasia Poikilocytosis Basophilic Stippling Anisocytosis Microcytosis Macrocytosis Spherocytes Tear Drop Cells Ovalocytes Stomatocytes Harden-Star Bodies [place]andywine Cells/Echinocytes Acanthocytes (Spur) Schistocytes Sodium 142 Potassium 3.2 L 3.7 Chloride 106 Carbon Dioxide 29.2 Anion Gap 6.8 BUN 7 Creatinine 0.7 Est GFR (CKD-EPI 2020) 87.92 Glucose 127 H Calcium 7.2 L Magnesium 1.9 Total Bilirubin 1.85 H AST 32 ALT 31 Alkaline Phosphatase 77 Total Protein 6.2 L Albumin 2.6 L PAWSS Have you Been Recently Intoxicated or Drunk Within the Last 30 days?: No Have you Ever Experienced Previous Episodes of Alcohol Withdrawal?: No Have you ever Experienced Withdrawal Seizures?: No Have you ever Experienced Delirium Tremens(DT)s?: No Have you ever undergone Alcohol Rehabilitation Treatment (i.e, inpt ot outpatient treatment programs)?: No Have you ever Experienced Blackouts?: No Have you ever Combined Alcohol with other Downers within the last 90 days?: No Have you ever Combined Alcohol with any other Substance of Abuse during the last 90 days?: No Positive Blood Alcohol level on Presentation? [PCS.BAL]: No Evidence of Increased Autonomic Activity (i.e. HR>120, tremor, sweating, agitation, nausea)?: No Result: 0 Time Spent with Patient Time Spent with Patient: <25 minutes Time was spent: preparing to see the patient(eg.review tests) and indepentently interpreting results
--- NOTE | 2023-12-24 09:11 | PGE_ITS ---
Date of Service Date of service: 12/24/23 Time of Service: 09:11 Assessment and Plan Assessment and plan (1) Abdominal wall hematoma: Status: Acute Assessment and plan: Surgery consult in progress Initial H&H 11& 32 CBC BID today Warfarin on hold INR 1.0- Hgb down from 9.3 to 8.9 - was as low as 8.8 H&H at 17:00 Surgical consult in progress: please read notes -Stable , recommendation for resumption of DVT regimen 24-48 hours and LMWH SC for prophylaxis LMWH to bridge for DVT treatment trnasitioned to prophylaxis for DVT - considering NOAC when stable -Might need LMWH bridge if NOAC not possible Iron studies will start oral iron pending results IVF stopped on 12/22 CBC in AM (2) Hypokalemia: Status: Acute Assessment and plan: K 3.9 Supplementation given for K as low as 2.7 IVF stopped CMP in AM Conitnue Telemetry (3) Hypocalcemia: Status: Acute Assessment and plan: Ca 5.9 now 7.2- corrected at 7.8 w alb 3.4 Ionized Ca pending Ca gluconate IV in ED and X2 on the floor 1 gm of Ca gluconate IV intially ordered but d/c as per pharm corrected Ca of 8.3- 8.6 w Alb 4-4.4 PTH normal Continue Oral Ca Carbonate CMP in AM (4) Hypomagnesemia: Status: Acute Assessment and plan: Mg 0.3 on arrival Supplementation given Mg level 2.2 down trend to 1.9 on 12/22 at 23:00 Added levels for PO4 and Mag to AM labs - pending Mg in AM (5) On deep vein thrombosis (DVT) prophylaxis: Status: Acute Assessment and plan: Jean Carlos Has a history of recurrent DVT's Holding oral anticoagulation - was on warfarin with INR of 8.5 on admit LMWH therapeutic dosing for DVT intiated on 12/22 HS - reverted back to DVT prohylaxis today- f/u H&H this PM Considering eliquis VS xeralto VS LMWH at home with transition as per PCP- starting on Thursday -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 padilla Subjective Subjective Patient reports: feels better, tolerating liquids well, tolerating a regular diet, voiding w/o difficulty, flatus and bowel movement; denies diarrhea, blood in stool, nausea, vomiting or shortness of breath Exam Narrative Exam Narrative: Constitutional The patient is chair without acute distress Neuro:alert and oriented X 4 .No neurological focal deficit Chest:Chest is symmetrical and normal appearance Resp:Scattered ronchi clearing with cough, remains tight after reduced coughing spells Cardio:Tele: SR HR 88, regular rhythm, S1, S2,bilateral radial and dorsalis pedis pulses are positive GI: Abdomen is not distended, soft and non tender, bowel sounds are present Back/spine/Pelvis: No back tenderness, normal alignment Integumentary: Bruise to abdomen Extremities:equal strength to upper and lower ext respectively Psych: RASS 0, congruent mood and normal affect. Objective Last Vital Signs Temp 37.2 C 12/24/23 00:06 Pulse 79 12/24/23 08:02 Resp 25 H 12/24/23 08:02 BP 148/82 H 12/24/23 08:02 Pulse Ox 93 12/24/23 08:27 Laboratory Results - last 24 hr 12/23/23 12/23/23 12/23/23 12:45 17:45 18:00 WBC Cancelled 9.98 RBC Cancelled 3.00 L Hgb 9.4 L Cancelled 9.3 L Hct 27.8 L Cancelled 27.7 L MCV Cancelled 92 MCH Cancelled 31.0 MCHC Cancelled 33.6 RDW Cancelled 13.2 Plt Count Cancelled 203 MPV Cancelled 9.2 Immature Gran % Cancelled 0.6 Neutrophils % Cancelled 78.4 Band Neutrophils % Cancelled Lymphocytes % Cancelled 12.4 Atypical Lymphs % Cancelled Monocytes % Cancelled 5.7 Eosinophils % Cancelled 2.5 Basophils % Cancelled 0.4 Metamyelocytes % Cancelled Myelocytes % Cancelled Promyelocytes % Cancelled Other Cells % Cancelled Nucleated RBC % Cancelled 0.0 Absolute Neutrophils Cancelled 7.82 H Absolute Lymphocytes Cancelled 1.24 Absolute Monocytes Cancelled 0.57 Absolute Eosinophils Cancelled 0.25 Absolute Basophils Cancelled 0.04 RBC Morphology Cancelled Polychromasia Cancelled Hypochromasia Cancelled Poikilocytosis Cancelled Basophilic Stippling Cancelled Anisocytosis Cancelled Microcytosis Cancelled Macrocytosis Cancelled Spherocytes Cancelled Tear Drop Cells Cancelled Ovalocytes Cancelled Stomatocytes Cancelled Harden-[place] Bodies Cancelled [place] Cells/Echinocytes Cancelled Acanthocytes (Spur) Cancelled Schistocytes Cancelled Sodium 139 140 Potassium 3.7 3.3 L Chloride 105 104 Carbon Dioxide 26.2 29.1 Anion Gap 7.8 6.9 BUN 8 8 Creatinine 0.8 0.7 Est GFR (CKD-EPI 2020) 74.90 87.92 Glucose 158 H 154 H Calcium 6.3 L* 6.9 L Magnesium 2.2 Total Bilirubin 1.90 H 1.77 H AST 30 33 ALT 30 28 Alkaline Phosphatase 75 74 Total Protein 6.2 L 6.3 L Albumin 2.7 L 2.8 L 12/23/23 12/24/23 23:24 05:40 WBC 9.20 RBC 2.75 L Hgb 8.9 L Hct 25.4 L MCV 92 MCH 32.4 MCHC 35.0 RDW 13.4 Plt Count 226 MPV 9.3 Immature Gran % 0.3 Neutrophils % 75.8 Band Neutrophils % Lymphocytes % 14.6 Atypical Lymphs % Monocytes % 5.0 Eosinophils % 3.3 Basophils % 1.0 Metamyelocytes % Myelocytes % Promyelocytes % Other Cells % Nucleated RBC % 0.0 Absolute Neutrophils 6.98 H Absolute Lymphocytes 1.34 Absolute Monocytes 0.46 Absolute Eosinophils 0.30 Absolute Basophils 0.09 RBC Morphology Polychromasia Hypochromasia Poikilocytosis Basophilic Stippling Anisocytosis Microcytosis Macrocytosis Spherocytes Tear Drop Cells Ovalocytes Stomatocytes Harden-[place] Bodies [place] Cells/Echinocytes Acanthocytes (Spur) Schistocytes Sodium 142 Potassium 3.2 L 3.7 Chloride 106 Carbon Dioxide 29.2 Anion Gap 6.8 BUN 7 Creatinine 0.7 Est GFR (CKD-EPI 2020) 87.92 Glucose 127 H Calcium 7.2 L Magnesium 1.9 Total Bilirubin 1.85 H AST 32 ALT 31 Alkaline Phosphatase 77 Total Protein 6.2 L Albumin 2.6 L PAWSS Have you Been Recently Intoxicated or Drunk Within the Last 30 days?: No Have you Ever Experienced Previous Episodes of Alcohol Withdrawal?: No Have you ever Experienced Withdrawal Seizures?: No Have you ever Experienced Delirium Tremens(DT)s?: No Have you ever undergone Alcohol Rehabilitation Treatment (i.e, inpt ot outpatient treatment programs)?: No Have you ever Experienced Blackouts?: No Have you ever Combined Alcohol with other Downers within the last 90 days?: No Have you ever Combined Alcohol with any other Substance of Abuse during the last 90 days?: No Positive Blood Alcohol level on Presentation? [PCS.BAL]: No Evidence of Increased Autonomic Activity (i.e. HR>120, tremor, sweating, agitation, nausea)?: No Result: 0 Time Spent with Patient Time Spent with Patient: >50 minutes Time was spent: preparing to see the patient(eg.review tests), obtaining and/or reviewing separately otained hiistory, ordering medications,tests, procedures, referring, communicating with other health respiratory care technician, indepentently interpreting results, counseling the patient and care coordination
[2023-12-24 10:18] LABS: Ferritin 137 ng/mL (8-252)
[2023-12-24 10:29] LABS: Prothrombin Time 10.5 sec (9.1-11.1)
[2023-12-24] MEDS: Ferrous Sulfate 325 MG TAB PO ×2 (10:42→20:43)
[2023-12-24 11:20] LABS: Iron 39 ug/dL (50-170); Total Iron Binding Capacity 193 ug/dL (250-450); Transferrin Sat 20 % (15-50)
--- NOTE | 2023-12-24 12:06 | PDOC.CMPRO ---
Date of service: 12/24/23 Time of Service: 12:06 Care Management Progress Note Progress Note Text Progress Note Text: Rosemary was sitting up in bed when CM met with her. She reported that she is feeling better today and has less pain. Rosemary's potassium has normalized and her calcium is now up to 7.2 from a low of 5.9. Rosemary's INR is down to 1.0 and her Lovenox will be restarted tomorrow. She has an H&H scheduled to be drawn at 5pm today to ensure that she has not continued to bleed. Discharge Potential Discharge Needs: PCP F/U Appt Anticipated Barriers to Discharge: None Identified Patient/Family Education Needs: Review discharge instructions, discuss Ask Me Three Transportation: Private vehicle Plan: Anticipate Rosemary will be discharged home with no new services when medically cleared. She will follow up with her community providers and plan of care and transport with family. CM will follow and continue to assess for discharge needs. SDOH(Care Management) Screening Will the Patient Participate in the Screening?: Yes Do you worry about having a steady place to live?: no Problems where you live: no known problems In the past 12 months, have you had to go without electric, gas, oil or water in your home?: choose not to answer Have you or anyone in your house had to go without enough food to eat?: choose not to answer Has lack of transportation kept you from medical appointments or from doing things needed for daily living?: choose not to answer Has anyone in your support network made you feel unsafe for any reason?: choose not to answer
[2023-12-24] MEDS: Albuterol/Ipratropium 3 ML UPD VIAL UPD (13:52)
[2023-12-24 14:46] LABS: Magnesium 2.1 mg/dL (1.8-2.4)
--- NOTE | 2023-12-24 15:12 | IN_ITS ---
PT Notes Visit Reasons: L abd rectus bleed,hypokalemia,hypocalcemia,hypoma PHYSICAL THERAPY INPATIENT EVALUATION Date: 12/24/2023 Referring Doctor: Melinda Guajardo PT Orders: PT CONSULT: Safety consult for discharge Precautions: Telemetry, standard precautions Patient Profile/Admitting Diagnosis: Patient is a 75-year-old female presented to the ED with left lower abdominal quadrant pain. Workup in the ED revealed abnormal H&H, magnesium, calcium and CT imaging showed a hematoma to the left abdominal rectus sheat, with appearance of active bleeding. Patient was admitted to ICU for further medical management and monitoring. PT consulted in preparation for discharge to home when medically appropriate PMHX: Anemia due to blood loss, acute (Acute) Rectus sheath hematoma (Acute) Hypomagnesemia (Acute) Hypocalcemia (Acute) Abdominal wall hematoma (Acute) On deep vein thrombosis (DVT) prophylaxis (Acute) Mixed urinary incontinence due to female genital prolapse (Acute) Urge incontinence (Acute) Trigger thumb, left thumb (Acute) S/P Release: 11/05/2022Trigger finger, left middle finger (Acute) S/P Release: 3COVID (Acute 05/20/22) AMD (age related macular degeneration) (Acute ~01/2022) 02/17/22 [facility] ([place])Primary osteoarthritis of left knee (Acute) Trigger finger (Acute) RMF, RRF, RLF S/P Release of all three fingers: 06/12/2020ecreased range of motion of finger of right hand (Acute) Prediabetes (Acute) Bruise (Acute) Myalgia (Acute) Sore throat (Acute) Sinusitis (Acute) PND (post-nasal drip) (Acute) Right tennis elbow (Acute) 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) Left Pain of lower extremity (Acute 12/09/16) Mixed hyperlipidemia (Acute 12/09/16) Low serum calcium (Acute 05/26/16) 05/26/16 7.9 Insomnia (Acute 12/09/16) Gastroesophageal reflux disease (Acute 12/09/16) Fibrosclerosis of breast (Acute 12/09/16) Essential hypertension (Acute 12/09/16) Eczema (Acute 12/09/16) Diverticulosis of colon (Acute 12/09/08) [place], [place] Diverticulosis found in entire colon Barretts esophagus (Acute 12/08/09) EGD Medical History History of tobacco abuse (01/08/17) History of DVT (deep vein thrombosis) (01/14/17) Recurrent 03/2015, 12/2015 femoral vein of LLE 11/11/22 off xarelto x 2w, warfarin restarted No coagulopathy eval started 2' move up to [place] from [place].. Fam Hx DVT (mo). Surgical History Sigmoidoscopy (~12/1999) Colonoscopy - MAC (03/30/17) Cholecystectomy Appendectomy Social History/Home Situation: Patient lives alone in a single-family home 5 steps to enter with bilateral rails she is retired she is independent with all ADLs/IADLs, homemaking, cooking, medication management. Patient drives and does her own shopping she independently ambulates without a device. Equipment Owned/DME: None Subjective: Patient reports she is tired she voices no pain Objective: General Observation: Female sitting at edge of bed using iPad telemetry in place agreeable to participate in therapy assessment Mental Status: Alert and oriented x 4 Pain: Denies ROM: Right Upper Extremity: WNL Left Upper Extremity: WNL Right Lower Extremity: WNL Left Lower Extremity: WNL Strength: Right Upper Extremity: Grossly 4/5 Left Upper Extremity: Grossly 4/5 Right Lower Extremity: Hips 3+/5 knees 4/5, ankle 4/5 Left Lower Extremity: Hip 3+/5 knee 4/5 ankle 4/5 Sensation: Intact Bed Mobility/Transfers: Supine to sit independent Sit to stand independent Stand to sit independent Bed to chair supervision Gait: Patient ambulate without assistive device contact-guard assist 90 feet with decreased step length and high guard position of upper extremity increased lateral weight shift Stairs 2 6 inch steps with 2 rails with contact-guard assist Balance: Static Sitting: Normal Dynamic Sitting: Normal Static Standing: Good Dynamic Standing: Good Special Tests: 4 STAGE BALANCE TEST: Feet together __10__ seconds 1/2 Stance ____10___ seconds Tandem stance __6__seconds Single leg stance left___6_seconds, right_8___seconds Mobility Limitations Standardized Measure [] [facility] AM-PAC 6 clicks Basic Mobility Inpatient Short Form: [] Raw Score: 23 CMS Score: 11.20% Informed Consent/Education: Patient instructed in purpose of PT consult. Packet containing [] exercise protocol has been given to patient. Education and training on initial set of exercises that can be done at home have been completed with patient. Assessment: Patient is 75-year-old female Patient presents with clinical signs and symptoms consistent with current/admitting diagnoses that have resulted to mobility limitations, gait instability, generalized weakness, and impairment of motor control as demonstrated by the following impairment level findings: 1. Decreased strength to BLE major muscle groups 2. Impaired standing balance 3. Impaired functional activity tolerance Impairments are contributing to the following functional limitations: 1. Inability to safely ambulate without assistive device and assistance 2. Increase completion time for mobility ADL performance 3. Increased fall risk 4. Difficulty with managing steps alone safely Patient is assessed as a moderate complexity based on the following: History: 75-year-old female with impairment level findings, functional limitations, and past medical history as indicated above Examination: Demonstrable impairment in strength, balance, and mobility level with underlying impairments and functional limitations as documented above Presentation: Evolving Decision Making: Moderate Goals: 1. Independent ambulation 300 feet with least restrictive device 2. Supervised ascending descending 5 steps with 2 rails to safely enter and exit home Plan of Care/Treatment Plan: Pt would benefit from skilled PT 1-2 times per day for global strengthening, transfers, ambulation,and balance facilitation until medically appropriate for discharge DISCHARGE RECOMMENDATIONS: Home with no services TREATMENT CODE/TIME: 38333 x 21 minutes for 1 unit/1400?1421 Thank you for the opportunity to participate in the care of this patient. Rosalba Aguillon PT Please sign an return this page within 30 days if you agree with the above POC. Thank you! Physician Signature Date [facility]
[2023-12-24] MEDS: DOXYCYCLINE 100 MG in Normal Saline 100 ML IVPB (15:53)
[2023-12-24] MEDS: predniSONE 20 MG TAB 40 MG PO (15:54)
--- NOTE | 2023-12-24 17:06 | CHAPLAIN ---
Rosemary was resting in bed when I visited. She was very pleasant. I explained my role and offered support. 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 I left a message with the statistical secretary.
[2023-12-24 17:15] LABS: HCT 26.9 % (36.0-46.0); HGB 9.1 g/dL (11.2-15.7); MCH 31.4 pg (27.0-33.0); MCHC 33.8 % (32.0-36.0); MCV 93 fL (80-95); MPV 9.1 fL (8.0-11.0); Platelet Count 228 10^3/uL (130-400); RDW 13.3 % (11.7-14.6); WBC 9.96 10^3/uL (4.4-10.8)
[2023-12-24 17:35] LABS: Lab Add On Test DONE
[2023-12-24 18:04] LABS: Magnesium 2.4 mg/dL (1.8-2.4)
[2023-12-24 20:02] LABS: Ionized Calcium 0.89 mmol/L (1.14-1.35)
[2023-12-24] MEDS: Atorvastatin 40 MG TAB PO (20:43)
[2023-12-24] MEDS: Melatonin 3 MG TAB PO (20:43)
[2023-12-25] VITALS (16 sets, daily range): BP systolic 157–175; BP diastolic 74–93; PULSE 72–110; RESP 11–31; TEMP 36.6–37.5; O2SAT 92–95
[2023-12-25] MEDS: Benzonatate 200 MG CAP PO ×2 (00:17→14:25)
[2023-12-25] MEDS: guaiFENesin/D-METHORPHAN HB 5 ML CUP 10 ML PO (03:46)
[2023-12-25] MEDS: DOXYCYCLINE 100 MG in Normal Saline 100 ML IVPB (03:46)
[2023-12-25] MEDS: Normal Saline Flush 10 ML SYR IVP ×2 (04:21→08:16)
[2023-12-25 07:06] LABS: Abs Immature Grans 0.08 10^3/uL (0.0-0.06); Absolute Basophil Count 0.02 10^3/uL (0.0-0.2); Absolute Lymphocyte Count 1.15 10^3/uL (1.2-3.4); Absolute Monocyte Count 0.35 10^3/uL (0.1-0.8); Absolute Neutrophil Count 6.87 10^3/uL (1.2-6.7); Basophils % 0.2 %; HCT 26.9 % (36.0-46.0); HGB 9.2 g/dL (11.2-15.7); Immature Grans % 0.9 %; Lymphocytes % 13.6 %; MCH 31.8 pg (27.0-33.0); MCHC 34.2 % (32.0-36.0); MCV 93 fL (80-95); MPV 9.5 fL (8.0-11.0); Monocytes % 4.1 %; Neutrophils % 81.2 %; Platelet Count 256 10^3/uL (130-400); RBC 2.89 10^6/uL (3.93-5.22); RDW 13.1 % (11.7-14.6); RDW-SD 43.3 fL; WBC 8.47 10^3/uL (4.4-10.8)
[2023-12-25 07:21] LABS: ALT 28 U/L (14-59); AST 28 U/L (15-37); Albumin 2.7 g/dL (3.4-5.0); Alkaline Phosphatase 82 U/L (46-116); Anion Gap 6.2 mmol/L (3-11); BUN 10 mg/dL (7-18); Bilirubin, Total 1.75 mg/dL (0.2-1.0); CO2 30.8 mmol/L (21.0-32.0); CREATININE 0.7 mg/dL (0.55-1.02); Calcium 7.6 mg/dL (8.5-10.1); Chloride 106 mmol/L (98-107); Estimated GFR 87.92 (mL/min/1.73m2); Glucose 126 mg/dL (74-106); Potassium 3.8 mmol/L (3.5-5.1); Sodium 143 mmol/L (136-145); Total Protein 6.5 g/dL (6.4-8.2)
[2023-12-25] MEDS: Calcium Carbonate *TUMS* 500 MG CHEW PO ×2 (08:12→14:25)
[2023-12-25] MEDS: Ferrous Sulfate 325 MG TAB PO (08:13)
[2023-12-25] MEDS: Multivitamin w/Minerals TAB 1 TAB PO (08:13)
[2023-12-25] MEDS: Cyanocobalamin 500 MCG TAB 1000 MCG PO (08:13)
[2023-12-25] MEDS: Omeprazole 20 MG CAPCR PO (08:13)
[2023-12-25] MEDS: predniSONE 20 MG TAB 40 MG PO (08:14)
[2023-12-25] MEDS: Losartan 50 MG TAB 100 MG PO (08:14)
[2023-12-25] MEDS: Cholecalciferol (Vitamin D3) 1,000 UNIT TAB 1000 UNITS PO (08:14)
[2023-12-25] MEDS: hydroCHLOROthiazide 25 MG TAB PO (08:14)
[2023-12-25] MEDS: Enoxaparin 40 MG/0.4 ML SYR SC (08:15)
--- NOTE | 2023-12-25 08:19 | PDOC.CMPRO ---
Date of service: 12/25/23 Time of Service: 08:19 Care Management Progress Note Discharge Potential Discharge Needs: PCP F/U Appt Anticipated Barriers to Discharge: None Identified Patient/Family Education Needs: Review discharge instructions, discuss Ask Me Three Transportation: Private vehicle Plan: Anticipate Rosemary will be discharged home with no new services when medically cleared. She will follow up with her community providers and plan of care and transport with family. CM will follow and continue to assess for discharge needs. SDOH(Care Management) Screening Will the Patient Participate in the Screening?: Yes Do you worry about having a steady place to live?: no Problems where you live: no known problems In the past 12 months, have you had to go without electric, gas, oil or water in your home?: choose not to answer Have you or anyone in your house had to go without enough food to eat?: choose not to answer Has lack of transportation kept you from medical appointments or from doing things needed for daily living?: choose not to answer Has anyone in your support network made you feel unsafe for any reason?: choose not to answer
[2023-12-25 08:28] LABS: Transferrin 156 mg/dL (201-352)
--- NOTE | 2023-12-25 10:20 | DSE_ITS ---
Date of service: 12/25/23 Time of Service: 10:21 DS: Diagnosis Discharge Diagnosis (1) Abdominal wall hematoma: Status: Acute (2) Hypokalemia: Status: Acute (3) Hypocalcemia: Status: Acute (4) Hypomagnesemia: Status: Acute (5) On deep vein thrombosis (DVT) prophylaxis: Status: Acute (6) Discharge planning issues: Status: Acute (7) Rectus sheath hematoma: Status: Acute Discharge Plan Disposition Patient Disposition: Home W/Home Health Services Condition: Improving Discharge Details Reason For Visit: L abd rectus bleed,hypokalemia,hypocalcemia,hypoma Admit Date/Time: 12/22/23 13:04 Admit Provider: Chico Jasso Attending Provider: Chico Jasso Primary Care Provider: Echo Chamberlain Hospital Course Hospital Course: This 78 years old female patient with past medical history of DVT on warfarin, prior appendectomy and cholecystectomy, hyperlipidemia presented to the ED at [facility] today with complaints of left lower abdominal quadrant pain since last night. Patient reported having had a dry cough with fevers in the low 100s over 7 to 10 days 3: Denied shortness of breath or chest pain. Workup in the ED was significant for an INR of 8.5, potassium level at 2.1, magnesium level at 0. 3, and a calcium level at 5.9. CPK was 1300. CT imaging showed a hematoma to the left abdominal rectus sheat, with appearance of active bleeding. H&H was 11 and 32 from previous a month ago at 12.4 & 36.6. INR was reversed with PCC, IV vitamin K. The ED provider initiated oral replacement of potassium, IV replacement of calcium and IV replacement of magnesium. Surgical service was consulted and recommended giving TXA without any recommendation for emergent surgical process but recommendation for hospitalist admission to trend H&H and also monitor electrolytes. Hospitalist service was consulted and patient was admitted to the medical surgical floor for evaluation and management of abdominal rectus sheath hematoma, hypomagnesemia, hypokalemia, hypocalcemia, elevated CPK. Hospitalist was informed that 1 g of TXA was ordered to be given. When seen in the ED, the patient was getting a TXA drip as a second dose. The patient was sitting at the edge of bed eating without any acute distress. The patient denies dizziness, previous falls, chest pain. Reported fevers around 100 in the past 2 consecutive days as well as 7 to 10 days of cold symptoms; reports abdominal pain at 5 out of 10 at this time compared to 10 out of 10 overnight. The patient denied vomiting, diarrhea but reported slight nausea last night which has subsided since then. The patient denied hematuria, hematochezia or melena but reported streak of blood after bowel movement most likely due to hemorrhoids. The patient reported that she would like CPR does the patient was a full code. During the stay, electrolyte supplementation was completed, with resolution of imbalances. H&H remained stable at 9.2 & 26. Surgery continue to follow and no surgical intervention was recommended. Recommendation for DVT prophylaxis with LMWH to be started on 12/23/2024 and anti-coagulation to be restarted within 48 hours. INR was 1.0. 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 The patient developed a bout of brief A-fib with RVR for which she received lopressor oral with resolution to sinus rhythm; remained in sinus rhythm. The patient will continue metoprolol succinate at discharge and will have an echocardiogram as an outpatient s well as a follow-up with cardiology. The patient was febrile for 48 hours with ongoing cough from admission and the production of yellowish thick sputum in the setting of reported recurrent bronchitis and smoking history without past PFT's available. The patient was treated with prednisone oral and doxycycline; the patient will have to continue the therapy upon discharge. Sputum grew Moraxella catarrhalis. Blood cultures were negative at 48 hours. The patient has a referral for pulmonology follow-up and PFT's . The patient will need to follow up with PCP within 7 days of discharge. The patient will need outpatient physical therapy. Follow-up CBC ordered. Discussed with Dr. Hu [place] Meds and New Rx's Prescriptions: New docusate sodium [Colace] 100 mg Capsule 100 mg PO TID PRN PRNQty: 90 0RF metoprolol succinate 25 mg tablet extended release 24 hr 25 mg PO DAILY Qty: 30 0RF prednisone 20 mg tablet 40 mg PO DAILY Qty: 3 0RF doxycycline hyclate 100 mg capsule 100 mg PO BID Qty: 6 0RF Eliquis 5 mg tablet 5 mg PO BID Qty: 60 0RF Rx Instructions: Starting on 12/26/2023 Continued atorvastatin [Lipitor] 40 mg tablet 40 mg PO DAILY Qty: 90 3RF hydrochlorothiazide 25 mg tablet 25 mg PO DAILY Qty: 90 3RF acetaminophen 500 mg tablet 1,000 mg PO TID PRN PreserVision AREDS-2 250-90-40-1 mg capsule 1 tab PO BID melatonin 10 mg capsule 10 mg PO HS PRN betamethasone valerate 0.1 % cream 1 applic Topical BID PRN (Reason: Hand eczema) Qty: 15 5RF Rx Instructions: small amt to affected area 2x/day up to 2 weeks, 1 week off repeat cycle as needed. Centrum Complete 18-400 mg-mcg tablet 1 tab PO DAILY losartan 100 mg tablet 100 mg PO DAILY Qty: 30 3RF furosemide 20 mg tablet See Rx Instructions PO DAILY PRN (Reason: edema) Qty: 14 0RF Rx Instructions: orally daily PRN; 1/2 to 1 tab daily PRN calcium citrate-vitamin D3 1 EACH tablet 1 ea PO DAILY mecobalamin (vitamin B12) [B12 Active] 1,000 mcg Tablet,Chewable 1,000 mcg PO DAILY omeprazole 20 mg capsule,delayed release(DR/EC) 20 mg PO DAILY Changed benzonatate 200 mg capsule 200 mg PO TID Qty: 21 0RF Discontinued warfarin 5 mg tablet 5 mg PO DAILY Qty: 90 3RF Protocol: Dose Management Condition: Thursday Dose/Route: 2.5 mg Instruction: 1 x 2.5 mg tablet Condition: Thursday Dose/Route: 2.5 mg Instruction: 1 x 2.5 mg tablet Condition: Thursday Dose/Route: 2.5 mg Instruction: 1 x 2.5 mg tablet Condition: Thursday Dose/Route: 2.5 mg Instruction: 1 x 2.5 mg tablet Condition: Dose/Route: 2.5 mg Instruction: 1 x 2.5 mg tablet Condition: Thursday Dose/Route: 2.5 mg Instruction: 1 x 2.5 mg tablet Condition: Thursday Dose/Route: 2.5 mg Instruction: 1 x 2.5 mg tablet Protocol Text: Adjustment Start Date: Thursday12/01/23 INR Value: 2.5 INR Date: 12/01/23 Recheck Date: 12/08/23 Rx Instructions: Start today please. warfarin 2.5 mg tablet 2.5 mg PO DAILY Protocol: Dose Management Condition: Thursday Dose/Route: 2.5 mg Instruction: 1 x 2.5 mg tablet Condition: Thursday Dose/Route: 2.5 mg Instruction: 1 x 2.5 mg tablet Condition: Thursday Dose/Route: 2.5 mg Instruction: 1 x 2.5 mg tablet Condition: Thursday Dose/Route: 2.5 mg Instruction: 1 x 2.5 mg tablet Condition: Dose/Route: 2.5 mg Instruction: 1 x 2.5 mg tablet Condition: Thursday Dose/Route: 2.5 mg Instruction: 1 x 2.5 mg tablet Condition: Thursday Dose/Route: 2.5 mg Instruction: 1 x 2.5 mg tablet Protocol Text: Adjustment Start Date: Thursday12/01/23 INR Value: 2.5 INR Date: 12/01/23 Recheck Date: 12/08/23 Rx Instructions: as directed Discharge Instructions Referrals: Hussein Pathak MD [MD [facility] STAFF PHYSICIAN] - Bisi Trevino PA [PHYSICIANS ADMINISTRATIVE TECHNICIAN] - (Hx of 30 pack year smoking, recurrent bronchitis, No PFT on records) Echo Chamberlain NP [Primary Care Provider] - 01/05/24 3:00 pm (F/u within 7 days of discharge ) [facility]o [facility]valcaba,[facility] [OTHER] - (Outpatient PT ) Activity:: Activity as Tolerated Equipment/Supplies:: No Equipment Needed Diet:: As Tolerated Discharge Orders Discharge Orders: Discharge Order (Routine); Ordered 12/25/23 Ordered By: Melinda Rodrigues Ambulatory Orders: Complete Blood Count w/Diff (Routine) Timeframe: 20231229 Facility: [facility] - Location: Laboratory Outpatient - [facility] Ordered By: Meilnda Guajardo echocardiogram (Routine) Timeframe: 10 Day Facility: [facility] - Location: DIAGNOSTIC IMAGING Ordered By: Melinda Guajardo DS: Summary Time Spent with Patient providing and/or coordinating discharge services: Greater than 30 minutes Status at Discharge Functional status at discharge: independent ambulation Overall status at discharge: patient is progressing back to baseline Mental Status: mental status grossly normal Speech and Movement: speech and movement normal Mood: congruent mood Affect: normal affect Quality:SDOH Health Related Social Needs: No Data to Display Exam Psych Mental Status: mental status grossly normal Speech and Movement: speech and movement normal Mood: congruent mood Affect: normal affect DS: Data Vitals/I&O Vitals and I&O: Vital Signs Temperature 37.2 C 12/25/23 07:30 Temperature Source Temporal Artery Scan 12/24/23 10:10 Pulse 89 12/25/23 06:06 Pulse 110 H 12/25/23 07:30 Respiratory Rate 23 12/25/23 07:30 Respiratory Effort Normal 12/22/23 21:10 Respiratory Depth Normal 12/22/23 21:10 Respiratory Pattern Normal 12/22/23 21:10 Blood Pressure 167/92 H 12/25/23 06:06 Blood Pressure Mean 113 12/25/23 06:06 Blood Pressure Position Supine 12/22/23 21:10 Pulse Oximetry 95 12/25/23 07:00 Oxygen Delivery Method Room Air 12/24/23 13:52 Oxygen Flow Rate 0 12/24/23 13:52 Pain Level 3 12/22/23 21:22 Comment just transferred from commode 12/25/23 00:29 Intake & Output 12/24/23 12/24/23 12/25/23 11:59 23:59 11:59 Intake Total 662.833 / 1132.833 470 / 1132.833 860.000 / 860.000 Output Total 2200 / 2775 575 / 2775 1100 / 1100 Balance -1537.167 / -1642.167 -105 / -1642.167 -240.000 / -240.000 Weight 75.8 kg 72.1 kg Intake: IV 182.833 / 292.833 110 / 292.833 100.000 / 100.000 Oral 480 / 840 360 / 840 760 / 760 Output: Urine 2200 / 2775 575 / 2775 1100 / 1100 Other: Urine Color Yellow Light Janette Yellow Urine Appearance Clear Clear Clear Urine Odor Normal Normal Comment per report form Carlitos farias RN catheter was to be dc'd last evening but was left in. Pt requested that velazquez be dc'd this morning. Velazquez dc'd per pt request. voided on commode x2 Stool Size Small Stool Characteristics Soft Formed Brown Data Completed and Pending Labs on day of discharge: Labs from last 24 hours 12/25/23 12/24/23 12/24/23 05:46 18:00 17:05 WBC 8.47 Cancelled 9.96 RBC 2.89 L Cancelled 2.90 L Hgb 9.2 L Cancelled 9.1 L Hct 26.9 L Cancelled 26.9 L MCV 93 Cancelled 93 MCH 31.8 Cancelled 31.4 MCHC 34.2 Cancelled 33.8 RDW 13.1 Cancelled 13.3 Plt Count 256 Cancelled 228 MPV 9.5 Cancelled 9.1 Immature Gran % 0.9 Cancelled Neutrophils % 81.2 Cancelled Band Neutrophils % Cancelled Lymphocytes % 13.6 Cancelled Atypical Lymphs % Cancelled Monocytes % 4.1 Cancelled Eosinophils % 0.0 Cancelled Basophils % 0.2 Cancelled Metamyelocytes % Cancelled Myelocytes % Cancelled Promyelocytes % Cancelled Other Cells % Cancelled Nucleated RBC % 0.0 Cancelled Absolute Neutrophils 6.87 H Cancelled Absolute Lymphocytes 1.15 L Cancelled Absolute Monocytes 0.35 Cancelled Absolute Eosinophils 0.00 Cancelled Absolute Basophils 0.02 Cancelled RBC Morphology Cancelled Polychromasia Cancelled Hypochromasia Cancelled Poikilocytosis Cancelled Basophilic Stippling Cancelled Anisocytosis Cancelled Microcytosis Cancelled Macrocytosis Cancelled Spherocytes Cancelled Tear Drop Cells Cancelled Ovalocytes Cancelled Stomatocytes Cancelled Harden-Parole Bodies Cancelled María Cells/Echinocytes Cancelled Acanthocytes (Spur) Cancelled Schistocytes Cancelled PT INR Sodium 143 Potassium 3.8 Chloride 106 Carbon Dioxide 30.8 Anion Gap 6.2 BUN 10 Creatinine 0.7 Est GFR (CKD-EPI 2020) 87.92 Glucose 126 H Calcium 7.6 L Ionized Calcium Magnesium Iron TIBC Transferrin % Sat Ferritin Total Bilirubin 1.75 H AST 28 ALT 28 Alkaline Phosphatase 82 Total Protein 6.5 Albumin 2.7 L Add-On Test Request 12/24/23 12/24/23 12/24/23 14:30 09:40 05:45 WBC RBC Hgb Hct MCV MCH MCHC RDW Plt Count MPV Immature Gran % Neutrophils % Band Neutrophils % Lymphocytes % Atypical Lymphs % Monocytes % Eosinophils % Basophils % Metamyelocytes % Myelocytes % Promyelocytes % Other Cells % Nucleated RBC % Absolute Neutrophils Absolute Lymphocytes Absolute Monocytes Absolute Eosinophils Absolute Basophils RBC Morphology Polychromasia Hypochromasia Poikilocytosis Basophilic Stippling Anisocytosis Microcytosis Macrocytosis Spherocytes Tear Drop Cells Ovalocytes Stomatocytes Harden-Parole Bodies Campbell Cells/Echinocytes Acanthocytes (Spur) Schistocytes PT 10.5 INR 1.0 Sodium Potassium Chloride Carbon Dioxide Anion Gap BUN Creatinine Est GFR (CKD-EPI 2020) Glucose Calcium Ionized Calcium Magnesium 2.1 2.4 Iron 39 L TIBC 193 L Transferrin % Sat 20 Ferritin 137 Total Bilirubin AST ALT Alkaline Phosphatase Total Protein Albumin Add-On Test Request DONE 12/23/23 23:24 WBC RBC Hgb Hct MCV MCH MCHC RDW Plt Count MPV Immature Gran % Neutrophils % Band Neutrophils % Lymphocytes % Atypical Lymphs % Monocytes % Eosinophils % Basophils % Metamyelocytes % Myelocytes % Promyelocytes % Other Cells % Nucleated RBC % Absolute Neutrophils Absolute Lymphocytes Absolute Monocytes Absolute Eosinophils Absolute Basophils RBC Morphology Polychromasia Hypochromasia Poikilocytosis Basophilic Stippling Anisocytosis Microcytosis Macrocytosis Spherocytes Tear Drop Cells Ovalocytes Stomatocytes Harden-Parole Bodies Campbell Cells/Echinocytes Acanthocytes (Spur) Schistocytes PT INR Sodium Potassium Chloride Carbon Dioxide Anion Gap BUN Creatinine Est GFR (CKD-EPI 2020) Glucose Calcium Ionized Calcium 0.89 L Magnesium Iron TIBC Transferrin % Sat Ferritin Total Bilirubin AST ALT Alkaline Phosphatase Total Protein Albumin Add-On Test Request 12/23/23 20:43 Sputum Sputum Culture - Pending Preliminary micro results at discharge 12/23/23 13:36 Blood Culture - Preliminary Blood NO GROWTH 24 HOURS 12/23/23 13:30 Blood Culture - Preliminary Blood NO GROWTH 24 HOURS 12/23/23 20:43 Sputum Culture - Pending Sputum PFSH All Active Problems (Updated 12/25/23 @ 16:43 by Melinda Guajardo APRN) Atrial fibrillation (Chronic) Discharge planning issues (Acute) Hypokalemia (Acute) Coagulopathy (Acute) Anemia due to blood loss, acute (Acute) Rectus sheath hematoma (Acute) Hypomagnesemia (Acute) Hypocalcemia (Acute) Abdominal wall hematoma (Acute) On deep vein thrombosis (DVT) prophylaxis (Acute) Mixed urinary incontinence due to female genital prolapse (Acute) Urge incontinence (Acute) Trigger thumb, left thumb (Acute) S/P Release: 11/05/2022 Trigger finger, left middle finger (Acute) S/P Release: 11/05/2022 COVID (Acute 05/20/22) AMD (age related macular degeneration) (Acute ~01/2022) 02/17/22 [facility] Primary osteoarthritis of left knee (Acute) Trigger finger (Acute) RMF, RRF, RLF S/P Release of all three fingers: 06/12/2020 Decreased range of motion of finger of right hand (Acute) Prediabetes (Acute) Bruise (Acute) Myalgia (Acute) Sore throat (Acute) Sinusitis (Acute) PND (post-nasal drip) (Acute) Right tennis elbow (Acute) Ankle edema (Acute) prison current use of anticoagulants with INR goal of 2.0-3.0 (Chronic) Hx > 8, 12/12.. Changing to Xarelto ~ 12/16/21. 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) Left Pain of lower extremity (Acute 12/09/16) Mixed hyperlipidemia (Acute 12/09/16) Low serum calcium (Acute 05/26/16) 05/26/16 7.9 Insomnia (Acute 12/09/16) Gastroesophageal reflux disease (Acute 12/09/16) Fibrosclerosis of breast (Acute 12/09/16) Essential hypertension (Acute 12/09/16) Eczema (Acute 12/09/16) Diverticulosis of colon (Acute 12/09/08) [place] Diverticulosis found in entire colon Barretts esophagus (Acute 12/08/09) EGD Medical History History of tobacco abuse (01/08/17) History of DVT (deep vein thrombosis) (01/14/17) Recurrent 03/2015, 12/2015 femoral vein of LLE 11/11/22 off xarelto x 2w, warfarin restarted No coagulopathy eval started 2' move up to [place] from [place].. Fam Hx DVT (mo). Surgical History Sigmoidoscopy (~12/1999) Colonoscopy - MAC (03/30/17) Cholecystectomy Appendectomy Family History Mother Alzheimer's disease Neoplasm Breast Maternal Grandmother Neoplasm Breast Social History Smoking/Tobacco Use Status: Former Tobacco Use Tobacco: How many years used: 25 Smoking risk assessment performed?: Yes Alcohol Intake: current Alcohol Intake frequency: 0-2 drinks per day Alcohol type: wine Counseling given: No Details: 1 glass of wine/maybe one beer/daily. 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 gender identity: female What is your relationship status?: How often do you talk on the phone with friends or family?: twice per week Panel score (0-1 are the most socially isolated patients): 0 What type of physical activity do you participate in: walking and weight lifting Duration: 45-60 minutes/day Frequency: 1-2 times per week Seatbelt use: always Drive intox or ride w/intox medical van driver: No Working smoke detector in home: Yes Fire extinguisher in home: No Carbon monox detector in home: Yes Firearms in home: No Do you feel safe at home: Yes Victim of physical abuse: No Victim of emotional abuse: No Time Spent with Patient Time Spent with Patient: >85 minutes Time was spent: preparing to see the patient(eg.review tests), obtaining and/or reviewing separately otained hiistory, ordering medications,tests, procedures, referring, communicating with other health daycare worker, indepentently interpreting results, counseling the patient and care coordination
--- NOTE | 2023-12-25 11:15 | PT.INTREAT ---
PT Notes Visit Reasons: L abd rectus bleed,hypokalemia,hypocalcemia,hypoma Inpatient Physical Therapy Treatment Note [facility] Date: 12-25-2023 PRECAUTIONS: Standard precautions, telemetry in place SUBJECTIVE: Patient report reports she feels much stronger today and is anticipating going home if her blood thinner medication is available. After ambulation patient reported she feels steady as compared to yesterday OBJECTIVE: Presents seated in chair using her iPad agreeable to participate ? PAIN: Denies VITALS: ?Monitored via telemetry by nursing? Transfers: Chair to and from bed, chair to chair, chair to toilet/commode independent Ambulation: With FWW: SBA 300 feet with reciprocal pattern into standing rest for pacing as patient noted to cough Without AD: Standby assist 100 feet x 2 reciprocal pattern Stairs: Two 6 inch steps x 3 trials with 1 rail SBA reciprocal pattern no shortness of breath noted ASSESSMENT: Patient demonstrates significant improvement in stability with ambulation without assistive device as compared to initial assessment. Patient required intermittent cues for pacing during ambulation. She she was noted to have a cough intermittently during ambulation as well. PLAN: Continue PT for functional activity tolerance and stairs until medically appropriate for discharge TREATMENT CODE/TIME: 48330 x 17 minutes for 1 unit 1045?1102 DISCHARGE RECOMMENDATION: Home with no services
--- NOTE | 2023-12-25 12:13 | PDOC.CMDIS ---
Date of service: 12/25/23 Time of Service: 12:13 LACE Index Scoring Tool Questions: Length of Stay (in days): 3 Was the patient admitted via the E.D.?: Yes E.D. Visits: 2 Answers: Total Score: 8 Risk of Readmission: Low Risk Care Management Discharge Plan Reason for Hospitalization: abdominal wall hematoma Discharge Plan: Rosemary will be discharged home with no new services. She will follow up with her PCP and plan of care and transport with family. Patient/Family Education Needs: Review of discharge instructions, limitations, follow up plan, discuss Ask Me [facility] Health Related Social Needs: No Data to Display
[2023-12-25] MEDS: Metoprolol 25 MG TAB PO (16:13)
[2023-12-31 21:28] LABS: PTH AB NEGATIVE (NEGATIVE)
== END 2023-12-25 17:30 | disposition home health service (06) | DRG 556 ==
LOC: ER 16:41 → ICU 21:12
PROVIDERS: General Practice; Nurse Practitioner Acute Care; Surgery; Admitting Provider Internal Medicine; Emergency Provider Emergency Medicine; PCP Nurse Practitioner; Visit Provider Internal Medicine
DX: M79.81 Nontraumatic hematoma of soft tissue; D62 Acute posthemorrhagic anemia; J44.1 Chronic obstructive pulmonary disease with (acute) exacerbation; T45.515A Adverse effect of anticoagulants, initial encounter; E87.6 Hypokalemia; E83.51 Hypocalcemia; E83.42 Hypomagnesemia; I10 Essential (primary) hypertension; E78.2 Mixed hyperlipidemia; Z79.01 Long term (current) use of anticoagulants; R73.03 Prediabetes; K57.30 Diverticulosis of large intestine without perforation or abscess without bleeding; K21.9 Gastro-esophageal reflux disease without esophagitis; Z86.718 Personal history of other venous thrombosis and embolism; Z87.891 Personal history of nicotine dependence; I48.91 Unspecified atrial fibrillation; Z86.711 Personal history of pulmonary embolism; N39.46 Mixed incontinence; M81.0 Age-related osteoporosis without current pathological fracture; L30.9 Dermatitis, unspecified; G47.00 Insomnia, unspecified; R50.9 Fever, unspecified
CPT/HCPCS: 00123; 36415; 80048; 80053; 82550; 83519; 83690; 84145; 85027; 87040; 87077; 87637; 93005; 96365; 96366; 96367; 96368; 96375; 96376; 97162; 97530; 99223; 99231; 99232; 99285; J1650; 71046; 74177; 81003; 81015; 82330; 82728; 83540; 83550; 83605; 83735; 83970; 84100; 84132; 84466; 85014; 85018; 85025; 85610; 85730; 87070; 87205; 93010; 94640; 94667; 94668; 99233; 99239; 99291; J0612; J0613; J1171; J3430; J3475; J3480; J7168; J7512; J7620

== ENCOUNTER 2024-01-05 15:24 | Outpatient (CLI) | payer MEDICARE, BC, SELFPAY ==
--- NOTE | 2024-01-05 15:15 | RT.EKG_ITS ---
APPROVED REPORT Exam: Resting ECG Reason for Exam: f/u afib Patient Location: O HR:73 bpm ECG Measurements Heart Rate 73 AXIS MS 107 P 157 QRSd 90 QRS -22 QT 459 T [id number] QTc 506 Conclusion Sinus or ectopic atrial rhythm...P axis (-45,135) Atrial premature complexes...SV complexes w/ short R-R intvls Short MS interval...MS <110mS Probable left atrial enlargement...P >50mS, <-0.10mV V1 Borderline left axis deviation...QRS axis (-15,-29) Nonspecific T abnormalities, lateral leads...T <-0.10mV, I aVL V5 V6 Prolonged QT interval...QTc >500mS
== END 2024-01-05 15:25 | disposition home or self-care (01) ==
LOC: DI.KIM 15:25
PROVIDERS: PCP Nurse Practitioner; Visit Provider Nurse Practitioner
DX: I48.91 Unspecified atrial fibrillation (principal)
CPT/HCPCS: 93010

== ENCOUNTER 2024-01-05 15:46 | Outpatient (REF) | payer MEDICARE, BC, SELFPAY ==
[2024-01-05 19:57] LABS: Abs Immature Grans 0.02 10^3/uL (0.0-0.06); Absolute Basophil Count 0.06 10^3/uL (0.0-0.2); Absolute Eosinophil Count 0.18 10^3/uL (0.0-0.7); Absolute Lymphocyte Count 1.82 10^3/uL (1.2-3.4); Absolute Monocyte Count 0.51 10^3/uL (0.1-0.8); Absolute Neutrophil Count 3.88 10^3/uL (1.2-6.7); Basophils % 0.9 %; Eosinophils % 2.8 %; HCT 32.8 % (36.0-46.0); Immature Grans % 0.3 %; Lymphocytes % 28.1 %; MCH 32.2 pg (27.0-33.0); MCHC 33.5 % (32.0-36.0); MCV 96 fL (80-95); MPV 9.9 fL (8.0-11.0); Monocytes % 7.9 %; Platelet Count 220 10^3/uL (130-400); RBC 3.42 10^6/uL (3.93-5.22); RDW 14.6 % (11.7-14.6); RDW-SD 49.2 fL; WBC 6.47 10^3/uL (4.4-10.8)
[2024-01-05 20:44] LABS: ALT 29 U/L (14-59); AST 21 U/L (15-37); Albumin 3.3 g/dL (3.4-5.0); Alkaline Phosphatase 68 U/L (46-116); Anion Gap 6.4 mmol/L (3-11); BUN 19 mg/dL (7-18); CO2 33.6 mmol/L (21.0-32.0); CREATININE 0.8 mg/dL (0.55-1.02); Calcium 8.6 mg/dL (8.5-10.1); Chloride 105 mmol/L (98-107); Glucose 94 mg/dL (74-106); Magnesium 0.9 mg/dL (1.8-2.4); Potassium 3.9 mmol/L (3.5-5.1); Sodium 145 mmol/L (136-145); Total Protein 6.5 g/dL (6.4-8.2)
== END 2024-01-05 15:47 | disposition home or self-care (01) ==
LOC: LBN 15:46
PROVIDERS: PCP Nurse Practitioner; Visit Provider Nurse Practitioner
DX: J45.909 Unspecified asthma, uncomplicated; R79.9 Abnormal finding of blood chemistry, unspecified; D64.9 Anemia, unspecified; E87.6 Hypokalemia; E83.51 Hypocalcemia; R06.02 Shortness of breath; I48.91 Unspecified atrial fibrillation; D62 Acute posthemorrhagic anemia; S30.1XXA Contusion of abdominal wall, initial encounter; I10 Essential (primary) hypertension
CPT/HCPCS: 80053; 83735; 85025

== ENCOUNTER 2024-01-07 03:17 | Outpatient (RCR) | payer MEDICARE, BC, SELFPAY ==
[2024-01-07] MEDS: MAGNESIUM SULFATE 4 GM/100 ML BAG IV_INF (10:48)
[2024-01-07] MEDS: Normal Saline Flush 10 ML SYR IVP (10:49)
== END 2024-01-30 23:59 | disposition home or self-care (01) ==
LOC: INF 03:17
PROVIDERS: PCP Nurse Practitioner; Visit Provider Nurse Practitioner
DX: E83.42 Hypomagnesemia
CPT/HCPCS: 96365; 96366; J3475

== ENCOUNTER 2024-01-18 03:31 | Outpatient (CLI) | payer MEDICARE, BC, SELFPAY ==
[2024-01-18] MEDS: Levalbuterol HFA 15 GM INH 4 PUFF IH (13:44)
[2024-01-18] MEDS: Inhaler, Assist Device 1 EACH MC (13:44)
--- NOTE | 2024-01-20 12:06 | W.PFT ---
Date of service: 01/18/24 Time of Service: 12:53 Pulmonary Function Test Result Indications: Dyspnea on exertion Interpretation Spirometry: There is no airflow limitation. There is a bronchodilator response. Lung Volumes: Normal lung volumes Diffusion Capacity: Normal diffusion Airway Pressure: Normal airways resistance Impression Normal pulmonary function with a positive bronchodilator response. This could reflect asthma in the correct clinic setting. Clinical Correlation therefore is recommended.
== END 2024-01-18 03:32 | disposition home or self-care (01) ==
LOC: RT 03:32
PROVIDERS: PCP Nurse Practitioner; Visit Provider Student in an Organized Health Care Education/Training Program
DX: R06.02 Shortness of breath (principal)
CPT/HCPCS: 94060; 94726; 94729

== ENCOUNTER 2024-01-19 01:58 | Outpatient (CLI) | payer MEDICARE, BC, SELFPAY ==
--- NOTE | 2024-01-19 07:37 | DI.US_ITS ---
APPROVED REPORT EXAM: Comprehensive 2D, Doppler, and color-flow Echocardiogram Patient Location: Out-Patient [facility] Refinisher: Janene Puentes RDCS (AE) Indications: Atrial Fibrillation Other Information Study Quality: Adequate Conclusion Borderline concentric left ventricular hypertrophy. Ejection fraction is 50%. There are no segmenta l wall motion abnormalities Normal right ventricular size and function Left atrium is moderately dilated. Right atrial size is normal. The atrial septum is thin and hyper mobile Aortic valve is mildly sclerotic and trileaflet without stenosis or regurgitation Ascending aorta measures 3.66 cm Estimated right ventricular systolic pressure is 32 mmHg Wall motion Left Ventricle The left ventricle is normal size. Left ventricular systolic function is borderline. Mild concentric left ventricular hypertrophy. There are no segmental wall motion abnormalities There is no ventricula r septal defect visualized. LVEF is 50%. Right Ventricle The right ventricle is normal size. The right ventricular systolic function is normal. Atria Left atrium is moderately dilated. The right atrium size is normal. Atrial septum is thin and hypermo bile Aortic Valve The Aortic valve is mildly sclerotic. Aortic valve is trileaflet. There is no aortic valvular stenosi s. No aortic regurgitation is present. Mitral Valve Mild mitral annular calcification. No evidence of mitral valve stenosis. Trace mitral regurgitation. Tricuspid Valve The tricuspid valve is normal in structure. There is no tricuspid valve stenosis. Mild tricuspid reg urgitation. The RVSP is 32.3_ mmHg. Pulmonic Valve The pulmonary valve is normal in structure. There is no pulmonic valvular stenosis. Trace pulmonic re gurgitation. Great Vessels The aortic root is normal in size. The ascending aorta is mildly dilated. Aortic arch is not well vis ualized. IVC is normal in size and collapses >50% with inspiration. 2D Dimensions IVSD d PLAX 1.21 cm F: 0.6-1.0 Ao Root d 3.27 cm F: 2.7 - 3.3 LVPW d PLAX 1.20 cm F: 0.6 - 1.0 Ao Asc Diam d 3.66 cm F: 2.3 - 3.1 LVID d PLAX 5.20 cm F: 3.8 - 5.2 LVDs 4.20 cm F: 2.2 - 3.5 LV EF Teichholz 40.1 % FS 19.67 % LV EDV (Teich) 129.2 mL LV ESV (Teich) 77.4 mL M-Mode TAPSE 2.19 cm (M/F) >1.7 Auto EF LV EDV A4C 104.6 mL LV EDV A2C 99.6 mL LV EDV BP 103.0 mL LV ESV A4C 60.3 mL LV ESV A2C 59.8 mL LV ESV BP 59.6 mL LVEF(%) A4C 42.3 % LVEF(%) A2C 39.9 % LVEF(%) BP 42.2 % LV SV A4C 44.2 ml LV SV A2C 39.8 ml LV SV BP 43.4 ml LV CO A4C 2.6 L/min LV CO A2C 2.4 L/min LV CO BP 2.5 L/min HR A4C 59.80 BPM HR A2C 60.61 BPM LV EDV Index (BP) LA Volume LA Length A4C 4.9 cm LA Length A2C 4.5 cm LA Area A4C s 22.44 cm2 LA Area A2C s 19.44 cm2 LA Vol A4C A-L 87.29 mL LA Vol A2C A-L 70.84 mL LA Vol Biplane A-L 81.8 mL LA Vol/BSA A4C A-L LA Vol/BSA A2C A-L LA Vol/BSA BP A-L 47.5 mL/m2 LA Vol A4C MOD 81.5 mL LA Vol A2C MOD 64.8 mL LA Vol BP MOD 75.5 mL RA Volume RA Area A4C 12.4 cm2 RA ESV A4C (A-L) 27.1mL RA Vol/BSA A4C A-L RA Length A4C 4.9 cm RA ESV A4C (MOD) 25.8mL LV Diastology MV E' medial 0.046 (>0.07 m/s) MV E Vmax 0.64 (0.4-1.3 m/s) MV E/E' MED 13.75 (<14) MV A Vmax 1.20 (0.4-1.3 m/s) MV E' lateral 0.053 (>0.1 m/s) E/A Ratio 0.5 MV E/E' LAT 12.12 (<14) MV E' Average 0.049 m/s MV E/E'(average) 12.88 Aortic Valve AoV Vmax 1.43 m/s LVOT Vmax 0.94 m/s AoV Peak Grad 8.2 mmHg LVOT Peak Grad 3.6 mmHg AoV Area (Vmax) 1.94 cm2 LVOT VTI 0.242 m AoV VTI 0.359 m LVOT Mean Grad 1.9 mmHg AoV Mean Marquis. 0.99 m/s LVOT SV 71.30 mL AoV Mean Grad 4.4 mmHg LVOT Diam s 1.90 cm AoV Area (VTI) 1.99 cm2 AV Regurg Peak Gr. 8.23 mmHg Velocity Ratio 0.66 Mitral Valve MV DT 499 (160-240 msec) MV Vmax TIPS 1.25 m/s MV Mean Grad 1.9 (<2mmHg) MV VTI 0.283 m Pulmonary Valve PV Vmax 0.94 (0.5-1.5 m/s) RVOT Vmax 0.81 m/s PV Peak Grad 3.5 mmHg RVOT Peak Gr. 2.6 mmHg PV Mean Marquis 0.68 m/s RVOT VTI 0.198 m PV Mean Grad 2.1 mmHg RVOT Mean Gr. 1.5 mmHg Tricuspid Valve RA Pressure 3.00 mmHg TR Vmax 2.71 m/s TV S' 0.13 m/s TR Peak Grad 29.2 mmHg RVSP (TR) 32.3 mmHg
== END 2024-01-19 02:18 ==
LOC: DI 01:59
PROVIDERS: PCP Nurse Practitioner; Visit Provider Nurse Practitioner Acute Care
DX: I51.7 Cardiomegaly (principal)
CPT/HCPCS: 93306

== ENCOUNTER 2024-02-08 09:34 | Outpatient (CLI) | payer MEDICARE, BC, SELFPAY ==
--- NOTE | 2024-02-08 09:30 | RT.EKG_ITS ---
APPROVED REPORT Exam: Resting ECG Reason for Exam: atrial fib Patient Location: O HR:73 bpm ECG Measurements Heart Rate 73 AXIS FL 144 P 60 QRSd 89 QRS 13 QT 426 T 30 QTc 470 Conclusion Sinus rhythm...normal P axis, V-rate 50- 99 Probable left atrial enlargement...P >50mS, <-0.10mV V1 Otherwise normal ECG
== END 2024-02-08 09:35 | disposition home or self-care (01) ==
LOC: DI.CARD 09:34
PROVIDERS: PCP Nurse Practitioner; Visit Provider Registered Nurse
DX: I48.91 Unspecified atrial fibrillation (principal)
CPT/HCPCS: 93010

== ENCOUNTER → 2024-02-08 13:54 | Outpatient (BNVA) | payer MEDICARE, BC, SELFPAY | PROVIDERS: PCP Nurse Practitioner; Referring Provider Nurse Practitioner; Visit Provider Registered Nurse | DX: I48.91 Unspecified atrial fibrillation (principal) | CPT/HCPCS: 93005; 99214 ==

== ENCOUNTER → 2024-03-15 08:16 | Outpatient (BNVA) | payer MEDICARE, BC, SELFPAY | PROVIDERS: PCP Nurse Practitioner; Referring Provider Nurse Practitioner; Visit Provider Physician Assistant Surgical | DX: D64.9 Anemia, unspecified (principal); R06.00 Dyspnea, unspecified | CPT/HCPCS: 36415; 99215 ==

== ENCOUNTER 2024-03-15 09:28 | Outpatient (REF) | payer MEDICARE, BC, SELFPAY ==
[2024-03-15 09:50] LABS: Abs Immature Grans 0.01 10^3/uL (0.0-0.06); Absolute Basophil Count 0.05 10^3/uL (0.0-0.2); Absolute Eosinophil Count 0.25 10^3/uL (0.0-0.7); Absolute Lymphocyte Count 1.63 10^3/uL (1.2-3.4); Absolute Monocyte Count 0.29 10^3/uL (0.1-0.8); Absolute Neutrophil Count 2.16 10^3/uL (1.2-6.7); Basophils % 1.1 %; Eosinophils % 5.7 %; HCT 34.8 % (36.0-46.0); HGB 11.5 g/dL (11.2-15.7); Immature Grans % 0.2 %; Lymphocytes % 37.1 %; MCH 31.1 pg (27.0-33.0); MCV 94 fL (80-95); MPV 9.5 fL (8.0-11.0); Monocytes % 6.6 %; Neutrophils % 49.3 %; Platelet Count 169 10^3/uL (130-400); RDW 13.1 % (11.7-14.6); RDW-SD 44.7 fL; WBC 4.39 10^3/uL (4.4-10.8)
[2024-03-15 09:57] LABS: Magnesium 1.5 mg/dL (1.8-2.4)
[2024-03-15 10:03] LABS: ALT 20 U/L (14-59); AST 15 U/L (15-37); Albumin 3.3 g/dL (3.4-5.0); Alkaline Phosphatase 62 U/L (46-116); BUN 17 mg/dL (7-18); Bilirubin, Total 0.96 mg/dL (0.2-1.0); CREATININE 0.7 mg/dL (0.55-1.02); Calcium 8.7 mg/dL (8.5-10.1); Chloride 107 mmol/L (98-107); Estimated GFR 87.92 (mL/min/1.73m2); Glucose 116 mg/dL (74-106); Potassium 4.7 mmol/L (3.5-5.1); Sodium 143 mmol/L (136-145); Total Protein 6.2 g/dL (6.4-8.2)
== END 2024-03-15 09:29 | disposition home or self-care (01) ==
LOC: LBN 09:28
PROVIDERS: PCP Nurse Practitioner; Visit Provider Physician Assistant Surgical
DX: D64.9 Anemia, unspecified (principal); E83.42 Hypomagnesemia; R06.00 Dyspnea, unspecified
CPT/HCPCS: 80053; 83735; 85025

== ENCOUNTER → 2024-04-21 11:09 | Outpatient (BNVA) | payer MEDICARE, BC, SELFPAY | PROVIDERS: PCP Nurse Practitioner; Referring Provider Nurse Practitioner; Visit Provider Physician Assistant Surgical | DX: R06.00 Dyspnea, unspecified (principal) | CPT/HCPCS: 99214 ==

== ENCOUNTER 2024-06-14 16:19 | Outpatient (CLI) | payer MEDICARE, BC, SELFPAY ==
--- NOTE | 2024-06-14 15:30 | DI.RAD_ITS ---
Exam(s) XR CHEST 2V PA LATERAL EXAM: XR CHEST 2V PA LATERAL CLINICAL HISTORY: prolonged cough X 3 weeks, R05.1-acute cough. TECHNIQUE: 2D digital imaging was performed. COMPARISON: CR XR CHEST 2V PA LATERAL from 12/22/2023 FINDINGS: 2 views: Heart size is normal. The mediastinum is not widened. In the right lung there is platelike atelectasis in the posterior basal segment of the right lower lo be. There are mild increased markings left lower lobe retrocardiac region consistent with mild infil trate in the left lower lobe posterior basal segment. There are no obvious pleural effusions.. IMPRESSION: Small area of infiltrate in left lower lobe posterior basal segment. Also atelectasis or mild infilt rate in the right lower lobe posterior basal segment. There are no obvious pleural effusions. DATA REPOSITORY: RADIATION DOSE DELIVERED:
== END 2024-06-14 16:39 ==
LOC: DI 16:20
PROVIDERS: PCP Nurse Practitioner; Visit Provider Nurse Practitioner Family
DX: R05.1 Acute cough (principal); R91.8 Other nonspecific abnormal finding of lung field
CPT/HCPCS: 71046

== ENCOUNTER → 2024-06-21 08:32 | Outpatient (BNVA) | payer MEDICARE, BC, SELFPAY | PROVIDERS: PCP Nurse Practitioner; Referring Provider Nurse Practitioner; Visit Provider Physician Assistant Surgical | DX: J45.909 Unspecified asthma, uncomplicated (principal); J31.0 Chronic rhinitis | CPT/HCPCS: 99214 ==

== ENCOUNTER → 2024-07-28 12:25 | Outpatient (BNVA) | payer MEDICARE, BC, SELFPAY | PROVIDERS: PCP Nurse Practitioner; Referring Provider Nurse Practitioner; Visit Provider Physician Assistant Surgical | DX: J45.909 Unspecified asthma, uncomplicated (principal); J31.0 Chronic rhinitis | CPT/HCPCS: 99214 ==

== ENCOUNTER 2024-11-21 09:50 | Outpatient (CLI) | payer MEDICARE, BC, SELFPAY | END 2024-11-21 09:51 | disposition home or self-care (01) | PROVIDERS: PCP Family Medicine; Visit Provider Family Medicine | DX: I48.91 Unspecified atrial fibrillation (principal); I48.92 Unspecified atrial flutter | CPT/HCPCS: 93246 ==

== ENCOUNTER 2024-11-21 10:52 | Outpatient (CLI) | payer MEDICARE, BC, SELFPAY ==
[2024-11-21 10:33] LABS: HCT 34.4 % (36.0-46.0); HGB 11.3 g/dL (11.2-15.7); MCH 30.6 pg (27.0-33.0); MCHC 32.8 % (32.0-36.0); MCV 93 fL (80-95); MPV 8.6 fL (8.0-11.0); Platelet Count 134 10^3/uL (130-400); RBC 3.69 10^6/uL (3.93-5.22); RDW 12.4 % (11.7-14.6); RDW-SD 42.7 fL; WBC 4.24 10^3/uL (4.4-10.8)
[2024-11-22 11:13] LABS: Lab Add On Test DONE
[2024-11-22 16:13] LABS: Vitamin B12 1071 pg/mL (193-986); Vitamin D 25 Total 19 ng/mL (30-100)
[2024-11-22 19:23] LABS: Iron 64 ug/dL (50-170)
[2024-11-22 19:36] LABS: Ferritin 37 ng/mL (8-252)
== END 2024-11-21 10:53 | disposition home or self-care (01) ==
LOC: LBO 10:53
PROVIDERS: PCP Family Medicine; Visit Provider Family Medicine
DX: K21.9 Gastro-esophageal reflux disease without esophagitis (principal); M81.0 Age-related osteoporosis without current pathological fracture; Z86.718 Personal history of other venous thrombosis and embolism; D64.9 Anemia, unspecified
CPT/HCPCS: 36415; 82306; 85027; 93246; 82607; 82728; 83540

== ENCOUNTER 2024-12-13 06:56 | Outpatient (CLI) | payer MEDICARE, BC, SELFPAY ==
--- NOTE | 2024-12-13 08:47 | W.CARDEVENT ---
Date of service: 12/13/24 Time of Service: 08:47 Cardiac Event Recorder Referring Provider:: Echo Chang Indications:: PAF Cardiac Event Note: This is a cardiac event monitor. Patient was monitored for 13 days and 11 hours. Rhythm throughout was sinus with an average heart rate of 65. Minimum was 34, maximum 120 There were very rare isolated atrial and ventricular ectopic beats There were several brief self-limited atrial runs, none longer than 5 beats There was no atrial fibrillation, no high-grade AV block, no pauses greater than 3 seconds. Symptoms correlated with sinus rhythm in the 70s
== END 2024-12-13 06:57 | disposition home or self-care (01) ==
LOC: CARDOPNVT 06:56
PROVIDERS: PCP Family Medicine; Visit Provider Internal Medicine Cardiovascular Disease
DX: I48.0 Paroxysmal atrial fibrillation (principal)
CPT/HCPCS: 93248